=== PATIENT | female | born 1975 | race Caucasian/White ===

== ENCOUNTER 2016-11-27 10:04 | Emergency (ER) | payer OTHER ==
[~2016-11-27] VITALS: Ht 157.5 cm; Wt 52.3 kg
[2016-11-27 10:10] VITALS: TEMP 37; Ht 157.5 cm; Wt 52.3 kg
[2016-11-27 11:00] LABS: MEAN CELL VOLUME 88.2 fL (80-100); MEAN CORPUSCULAR HEMOGLOBIN 30.5 pg (25-34); MEAN CORPUSCULAR HGB CONC 34.5 g/dl (32-36); MEAN PLATELET VOLUME 9.1 fL (7.4-10.4); PLATELET COUNT 350 K/uL (130-400); RED BLOOD COUNT 4.76 M/uL (4.2-5.4); WHITE BLOOD COUNT 7.29 K/uL (4.8-10.8)
[2016-11-27 11:29] LABS: CREATININE 0.88 mg/dl (0.60-1.20)
[2016-11-27 11:30] LABS: BUN/CREATININE RATIO 16.7 (10-20); CALCIUM 9.1 mg/dl (8.5-10.1)
[2016-11-27 11:46] LABS: POTASSIUM 3.9 mmol/L (3.5-5.1)
--- NOTE | 2016-11-27 12:37 | DIAGNOSTIC IMAGING REPORT ---
ULTRASOUND OF THE PELVIS CLINICAL HISTORY: Vaginal bleeding. Positive test. COMPARISON STUDY: Pelvic CT dated 06/04/2013. TECHNIQUE: Real-time, grayscale, and color flow sonography of the pelvis is performed both transabdominally and endovaginally. Images are reviewed in the transverse and longitudinal planes. FINDINGS: Uterus: The uterus is normal in size and echotexture, measuring 6.4 x 3.8 x 5.3 cm. A coarse calcification is noted in the fundal region. Endometrium: The endometrium is normal in appearance, and the endometrial stripe is normal in thickness measuring up to 0.4 cm. Ovaries: The ovaries are normal in size and morphology. The right ovary measures 2.6 x 1.5 x 1.6 cm and the left ovary measures 4.4 x 1.7 x 2.0 cm. A complex cystic follicle is noted in the left ovary measures up to 2.4 cm. Normal Doppler waveforms are shown within both ovaries. Pelvis: There is trace free fluid in the cul-de-sac. No concerning adnexal lesion is seen. IMPRESSION: 1. No intrauterine gestation is identified. This could simply reflect an intrauterine gestation that is too small to visualize or a missed . Although there is no concerning adnexal lesion identified clearly, in the setting of a positive test without a confirmed intrauterine gestation ectopic would be impossible to exclude. Close clinical, laboratory, and sonographic follow-up is recommended. 2. A complex follicle in the left ovary likely representing a corpus luteum. 3. Trace free fluid is noted in the cul-de-sac. Electronically signed by: Christian Tarango M.D. 11/27/2016 12:35 PM Dictated Date/Time: 11/27/2016 12:31 PM
[2016-11-27 13:42] VITALS: BP 103/68; PULSE 60; O2SAT 96
--- NOTE | 2016-11-27 14:57 | EMERGENCY ROOM VISIT NOTE ---
History First contact with patient: 10:34 Chief Complaint: ED VAG BLEEDING Stated Complaint: POSSIBLE MISCARRIAGE - REF BY History of Present Illness The patient is a 41 year old female who presents to the Emergency Room with complaints of vaginal bleeding. The patient reports that her bleeding started yesterday afternoon. It initially was dark brown and rust colored. The patient reports that she did have one large clot that passed. This morning she reports that the blood was bright red. The patient has not blood enough to soak a pad's morning. She reports mild pelvic cramping, rating her discomfort a 2 out of 10. The patient reports that she did have a positive home test. The patient denies any prior history of pregnancies. She has not noticed any recent additional vaginal drainage or malodor. Review of Systems HEENT: Denies dizziness, visual problems, hearing loss, tinnitus. Denies difficulty swallowing or oral lesions. PULMONARY: Denies cough, shortness of breath, sputum production or hemoptysis. CARDIOVASCULAR: Denies chest pain, palpitations, dyspnea on exertion, orthopnea or peripheral edema. GASTROINTESTINAL: Denies diarrhea, constipation, nausea, vomiting, or abdominal pain. GENITOURINARY: Denies dysuria, frequency, urgency or nocturia. NEUROLOGIC: Denies history of epilepsy, CVA, TIA or chronic headaches. MUSCULOSKELETAL: Denies history of joint tenderness/swelling. SKIN: Denies rashes or lesions. PSYCHIATRIC: Denies history of depression or mental illness. ENDOCRINE: Denies history of diabetes or thyroid disorders. Past Medical/Surgical History Medical Problems: (1) Esophageal Reflux (2) Kidney stones (3) Lumbar Disc Displacement (4) Pulmonary embolism Surgical Problems: (1) Status post wrist surgery Family History No significant family history Social History Smoking Status: Never Smoker Alcohol Use: occasionally Drug Use: none Marital Status: Occupation Status: employed Current/Historical Medications No Active Prescriptions or Reported Meds Allergies Coded Allergies: Sulfamethoxazole w/Trimethoprim (Verified Allergy, Unknown, rash, 11/27/16) Physical Exam Vital Signs Date Time Temp Pulse Resp B/P Pulse Ox O2 Delivery O2 Flow Rate FiO2 11/27/16 13:42 60 15 103/68 96 Room Air 11/27/16 11:15 66 16 109/67 100 Room Air 11/27/16 10:10 37.0 70 16 119/76 99 Room Air Physical Exam CONSTITUTIONAL: Healthy and well nourished. Alert and oriented X 3 with positive affect. Patient does not appear in any acute distress. HEENT: Normocephalic, atraumatic. Pupils equal, round and reactive. NECK: Full active range of motion without discomfort. RESPIRATORY: Clear to auscultation bilaterally with no wheezing, crackles, rhonchi or stridor. CARDIOVASCULAR: Regular rate and rhythm with no murmurs, rubs or gallops. GASTROINTESTINAL: Bowel sounds present in all quadrants. No abdominal tenderness to palpation. Negative McBurney's point tenderness. No left lower quadrant tenderness to palpation. Negative CVA tenderness. GENITOURINARY: With a female nurse present, speculum exam was performed. Normal external genitalia. Examination of the vaginal stone does not show any bleeding lesions. The patient does have dark red blood in the vaginal vault. She has mild bleeding from the cervical os with no evidence for soft tissue entrapment or protrusion. MUSCULOSKELETAL: Full range of motion of all joints without discomfort. INTEGUMENTARY: No rash or other significant dermatologic conditions noted. HEMATOLOGIC: No ecchymosis or petechiae noted. NEUROLOGIC: No focal neurologic deficits noted. Medical Decision & Procedures ER Provider Diagnostic Interpretation: Pelvic ultrasound shows the following: ULTRASOUND OF THE PELVIS CLINICAL HISTORY: Vaginal bleeding. Positive test. COMPARISON STUDY: Pelvic CT dated 06/04/2013. TECHNIQUE: Real-time, grayscale, and color flow sonography of the pelvis is performed both transabdominally and endovaginally. Images are reviewed in the transverse and longitudinal planes. FINDINGS: Uterus: The uterus is normal in size and echotexture, measuring 6.4 x 3.8 x 5.3 cm. A coarse calcification is noted in the fundal region. Endometrium: The endometrium is normal in appearance, and the endometrial stripe is normal in thickness measuring up to 0.4 cm. Ovaries: The ovaries are normal in size and morphology. The right ovary measures 2.6 x 1.5 x 1.6 cm and the left ovary measures 4.4 x 1.7 x 2.0 cm. A complex cystic follicle is noted in the left ovary measures up to 2.4 cm. Normal Doppler waveforms are shown within both ovaries. Pelvis: There is trace free fluid in the cul-de-sac. No concerning adnexal lesion is seen. IMPRESSION: 1. No intrauterine gestation is identified. This could simply reflect an intrauterine gestation that is too small to visualize or a missed . Although there is no concerning adnexal lesion identified clearly, in the setting of a positive test without a confirmed intrauterine gestation ectopic would be impossible to exclude. Close clinical, laboratory, and sonographic follow-up is recommended. 2. A complex follicle in the left ovary likely representing a corpus luteum. 3. Trace free fluid is noted in the cul-de-sac. Laboratory Results 11/27/16 10:36 11/27/16 10:36 Test 11/27/16 10:26 11/27/16 10:36 Human Chorionic Gonadotropin, Quant 152 mIU/mL Red Blood Count 4.76 M/uL (4.2-5.4) Mean Corpuscular Volume 88.2 fL (80-100) Mean Corpuscular Hemoglobin 30.5 pg (25-34) Mean Corpuscular Hemoglobin Concent 34.5 g/dl (32-36) RDW Standard Deviation 40.7 fL (36.4-46.3) RDW Coefficient of Variation 12.7 % (11.5-14.5) Mean Platelet Volume 9.1 fL (7.4-10.4) Anion Gap 10.0 mmol/L (3-11) Est Creatinine Clear Calc Drug Dose 67.2 ml/min Estimated GFR () 95.3 Estimated GFR (Non- 82.2 BUN/Creatinine Ratio 16.7 (10-20) Calcium Level 9.1 mg/dl (8.5-10.1) The above labs were reviewed. Quantitative beta-hCG was 152. CBC and partial renal profile are otherwise normal. ED Course Patient history and physical exam were performed. Nurse's notes were reviewed. The patient does not appear in any acute distress. IV access was established , and labs were drawn. Quantitative beta hCG was 152. The patient was otherwise hemodynamically stable. Pelvic exam shows mild bleeding from the cervical os. Pelvic ultrasound does not show any obvious intrauterine gestation. The patient was advised of her laboratory and pelvic ultrasound results. I suspect this is a miscarriage. The patient was instructed to follow-up with OB/ AUTHORIZATION REPRESENTATIVE for further reevaluation. The patient reports that she tried to call a local office but they cannot get her in for another 2 weeks. She did try to schedule an appointment with an OPERATOR ASSISTANT [facility] CEMENT[facility] in [place], also without any luck. Our [facility] was able to contact Dr. Ngo's office, and was scheduled for an appointment next Wednesday at 12:30 PM. The patient was instructed to return to the emergency department in the interim for any significantly worsening bleeding, pain or developing fever. The patient was happy with plan care, and voiced understanding of all discharge instructions. Medical Decision Patient presents to the emergency with complaint of vaginal bleeding. She did have a positive home test. Her quantitative beta hCG today is 152. With the presence of vaginal bleeding, I do suspect this is a spontaneous . The patient is not actively merging on pelvic exam. She is also hemodynamically stable. I do feel that the patient is safe at this time for outpatient follow-up, and was instructed to return or any significantly worsening bleeding. Impression Primary Impression: Threatened in early Departure Information Prescriptions No Active Prescriptions or Reported Meds Referrals Ranulfo Downs D.O. (PCP) Patient Instructions My [facility]
== END 2016-11-27 14:08 | disposition home or self-care (01) ==
LOC: C.EDB 10:05
DX: O20.0 Threatened abortion (principal); Z3A.00 Weeks of gestation of pregnancy not specified

== ENCOUNTER 2017-01-26 23:44 | Emergency (ER) | payer OTHER ==
[~2017-01-26] VITALS: Ht 157.5 cm; Wt 53.3 kg
[2017-01-26 23:47] VITALS: TEMP 36.7; Ht 157.5 cm; Wt 53.3 kg
[2017-01-27] MEDS ORDERED: FAMOTIDINE 20 MG TAB PO ONE (00:30)
[2017-01-27] MEDS ORDERED: DEXAMETHASONE SOD INJ 10 MG/ML VIAL IM ONE (00:30)
[2017-01-27] MEDS ORDERED: PRED50TA PO (01:06)
[2017-01-27 01:12] VITALS: BP 112/58; PULSE 65; O2SAT 100
--- NOTE | 2017-01-27 02:27 | EMERGENCY ROOM VISIT NOTE ---
History Report prepared by Sparkle: Cait Bobby Under the Supervision of: Dr. Fabian Noguera D.O. First contact with patient: 23:56 Chief Complaint: ALLERGIC REACTION Stated Complaint: HIVES ALL OVER BODY SINCE 2PM History of Present Illness The patient is a 42 year old female who presents to the Emergency Room with complaints of a constant red, itchy rash starting this morning. She notes that last night she felt her face feel flushed and then awoke to an itching sensation behind her ear this morning. Around 10 hours ago she noticed her whole upper body and thighs broken out with the red, itchy rash. She took Benadryl five hours ago which improved her symptoms. She claims that they did start a new detergent recently and is currently wearing the bra and underwear that she washed it in. She denies any new travel, soaps, makeup, pets, medications, and visiting new homes. She states that this has happened before from eating shrimp, but not to this intensity. She states that she is no longer allergic to shrimp and has no known allergies. She claims that a coworker has a similar reaction around her mouth after eating the same meal of barbecue chicken. Patient denies any coughing or shortness of breath. She denies any trouble swallowing, trouble breathing, shortness of breath or chest pain. Source of History: patient Onset: this mornig Position: other (upper body and thighs) Quality: other (red itchy rash) Timing: constant Modifying Factors (Relieving): other (Benadryl) Associated Symptoms: No SOB, No cough Review of Systems See HPI for pertinent positives & negatives. A total of 10 systems reviewed and were otherwise negative. Past Medical & Surgical Medical Problems: (1) Esophageal Reflux (2) Kidney stones (3) Lumbar Disc Displacement (4) Pulmonary embolism Surgical Problems: (1) Status post wrist surgery Family History No significant family history Social History Smoking Status: Never Smoker Alcohol Use: occasionally Drug Use: none Marital Status: Occupation Status: employed Current/Historical Medications Scheduled Prednisone (Prednisone), 1 TAB PO DAILY Allergies Coded Allergies: Sulfa Antibiotics (Verified Allergy, Unknown, hives, 01/27/17) Sulfamethoxazole w/Trimethoprim (Verified Allergy, Unknown, rash, 01/27/17) Physical Exam Vital Signs Date Time Temp Pulse Resp B/P Pulse Ox O2 Delivery O2 Flow Rate FiO2 01/27/17 01:12 65 20 112/58 100 01/27/17 00:09 100 Room Air 01/26/17 23:47 36.7 64 20 117/77 100 Room Air Physical Exam GENERAL: alert, well appearing, well nourished, no distress, non-toxic EYE EXAM: normal conjunctiva. OROPHARYNX: no exudate, no erythema, lips, buccal mucosa, and tongue normal and mucous membranes are moist NECK: supple, no nuchal rigidity, no adenopathy, non-tender LUNGS: Clear to auscultation. Normal chest wall mechanics HEART: no murmurs, S1 normal and S2 normal ABDOMEN: abdomen soft, non-tender, normo-active bowel sounds, no masses, no rebound or guarding. SKIN: diffuse maculopapular rash with blanching to thighs, chest, and back, no palm or sole involvement, no bruising/petechiae UPPER EXTREMITIES: upper extremities are grossly normal. LOWER EXTREMITIES: No pitting edema. NEURO EXAM: Normal sensorium Medical Decision & Procedures Medications Administered Medications (Trade) Dose Ordered Sig/Wing Route Start Time Stop Time Status Last Admin Dose Admin Dexamethasone Sodium Phosphate (Decadron Inj) 10 mg NOW ONCE IM 01/27/17 00:30 01/27/17 00:31 DC 01/27/17 00:24 10 MG Famotidine (Pepcid Tab) 20 mg NOW ONCE PO 01/27/17 00:30 01/27/17 00:31 DC 01/27/17 00:23 20 MG ED Course ED COURSE: Vital signs were reviewed and appeared normal. The patients medical record was reviewed The above diagnostic studies were performed and reviewed. ED treatments and interventions as stated above. 2358: The patient was evaluated in room C10. A complete history and physical examination was performed. 0030: Ordered Decadron Inj 10 mg IM, Pepcid Tab 20 mg PO. 0102: Upon reevaluation, the patient is resting comfortably.I discussed my findings with the patient and she understands and agrees with the treatment plan. Based on the patients age, coexisting illnesses, exam and lab findings the decision to treat as an outpatient was made. The patient remained stable while under my care. The patient appeared well at the time of discharge. Medical Decision Differential diagnosis: Etiologies such as allergic reaction, anaphylaxis, urticaria, Sanchez-Ta syndrome, toxic epidermal necrolysis, erythema multiforme, cellulitis, as well as others were entertained. Patient is a 42-year-old female who presents the ER for urticaria. She notes that this started this morning and gradually progressed and worsened around 2 PM. The only inciting factor that she can think of is a new detergent possibly something she ate at lunch but she is unsure of. She has no chest pain, no shortness of breath, no trouble swallowing, no trouble breathing. Patient was otherwise well-appearing. Her exam was completely benign. She was given steroids along with famotidine and had almost complete resolution of her itching and the hives improved significantly. She had previously taking Benadryl. She was discharged following a short observation period and instructed to take Benadryl 50 mg every 6-8 hours combination with Claritin and possibly additional steroids if needed. Discussed with Pt concerning signs and symptoms to watch out for. Pt was instructed to follow up with their PCP and discussed with the patient their option to return to the ED at anytime for persistent or worsening symptoms. The appropriate anticipatory guidance and out- patient management, including indications for return to the emergency department , were explained at length to the patient and understood. Impression Primary Impression: Allergic reaction Scribe Attestation The scribe's documentation has been prepared under my direction and personally reviewed by me in its entirety. I confirm that the note above accurately reflects all work, treatment, procedures, and medical decision making performed by me. Departure Information Dispostion Home / Self-Care Prescriptions Prednisone (Prednisone) 50 Mg Tab 1 TAB PO DAILY for 3 Days, #3 TAB Prov: Fabian Noguera, 01/27/17 Referrals Ranulfo Downs D.O. (PCP) Forms HOME CARE DOCUMENTATION FORM, IMPORTANT VISIT INFORMATION Patient Instructions ED Allergic Reaction General Other, My [facility] Additional Instructions Please follow up with your primary care doctor with in the next 24 hours. Any worsening of your symptoms, please return to the ED immediately. This includes swelling of her throat, trouble swallowing, trouble breathing, burning in your eyes, or any other concerning signs or symptoms from your standpoint. Please take 50 mg of Benadryl as needed for itching/rash every 6-8 hours. You can also take Zyrtec or Claritin daily If rash does not improve tomorrow you may fill the prescription of prednisone Problem Qualifiers Primary Impression: Allergic reaction Encounter type: sequela Qualified Codes: T78.40XS - Allergy, unspecified, sequela
[2017-01-28] MEDS ORDERED: PRED20TA PO (04:10)
== END 2017-01-27 01:13 | disposition home or self-care (01) ==
LOC: C.EDB 23:45 → C.EDC 01-27 01:13
DX: T78.40XA Allergy, unspecified, initial encounter (principal); K21.9 Gastro-esophageal reflux disease without esophagitis; Z86.711 Personal history of pulmonary embolism

== ENCOUNTER 2017-01-28 01:45 | Emergency (ER) | payer OTHER ==
[~2017-01-28] VITALS: Ht 157.5 cm; Wt 52.2 kg
[~2017-01-28 01:45] MED LIST: PRED50TA PO
[2017-01-28 01:50] VITALS: TEMP 36.4; Ht 157.5 cm; Wt 52.2 kg
[2017-01-28] MEDS ORDERED: METHYLPREDNISOLONE 125 MG VIAL IV STA (02:08)
[2017-01-28] MEDS ORDERED: DiphenhydrAMINE HCL 50 MG/ML VIAL IV STA (02:08)
[2017-01-28] MEDS ORDERED: FAMOTIDINE 20MG/102 ML D5W IV STA (02:08)
[2017-01-28] MEDS ORDERED: SODIUM CHLORIDE 0.9% 1000ML 1,000 ML IV ONE (02:15)
[2017-01-28] MEDS ORDERED: PRED20TA PO (04:10)
[2017-01-28 04:20] VITALS: BP 92/58; PULSE 58; O2SAT 97
--- NOTE | 2017-01-28 06:48 | EMERGENCY ROOM VISIT NOTE ---
History First contact with patient: 01:57 Chief Complaint: SKIN PROBLEM Stated Complaint: HIVES ALL OVER BODY History of Present Illness The patient is a 42 year old female who presents to the Emergency Room with complaints of allergic reaction. The patient was seen and evaluated yesterday with similar complaints. She was given IM Decadron and a prescription of prednisone. The patient states that she fell while at her discharge yesterday, however about 4 hours ago she started having a recurrence of her symptoms. The patient did take her prednisone today, but it does not appear to be working. She did take Benadryl prior to arrival. She has pruritus over her body. No fever or chills. No sore throat. The patient is able to breathe without difficulty. No abdominal pain. She has not had anything new to eat or drink out of the ordinary. No known exposure to allergens. She rates her discomfort a 5/10. Review of Systems More than 10 systems were reviewed and otherwise negative with the exception of history of present illness. Past Medical/Surgical History Medical Problems: (1) Esophageal Reflux (2) Kidney stones (3) Lumbar Disc Displacement (4) Pulmonary embolism Surgical Problems: (1) Status post wrist surgery Family History No significant family history Social History Smoking Status: Never Smoker Alcohol Use: occasionally Drug Use: none Marital Status: Occupation Status: employed Current/Historical Medications Scheduled Prednisone (Prednisone), 1 TAB PO DAILY Prednisone (Prednisone), 0 PO DAILY Allergies Coded Allergies: No Known Allergies (Unverified , 01/28/17) Physical Exam Vital Signs Date Time Temp Pulse Resp B/P Pulse Ox O2 Delivery O2 Flow Rate FiO2 01/28/17 04:20 58 18 92/58 97 01/28/17 03:14 54 17 98/60 98 Room Air 01/28/17 01:50 36.4 70 20 121/78 99 Room Air Pain Rating (0-10): 0 Physical Exam VITALS: Vitals are noted on the nurse's note and reviewed by myself. Vital signs stable. GENERAL: Well-developed, well-nourished, white female, who is in no acute distress and resting comfortably. Patient is cooperative with the examination. HEAD: Normocephalic atraumatic. MOUTH: Mucous membranes moist. Tonsils are not enlarged. Pharynx without erythema, blood, or exudate. Uvula midline. Airway patent. NECK: Supple without nuchal rigidity. No lymphadenopathy. No thyromegaly. Cervical spine is nontender. HEART: Regular rate and rhythm without murmurs gallops or rubs. LUNGS: Clear to auscultation bilaterally without wheezes, rales or rhonchi. No retractions or accessory muscle use. ABDOMEN: Positive normal bowel sounds x 4. Soft, nontender, without masses or organomegaly. No guarding or rebound tenderness. SKIN: The skin was with diffuse urticarial wheals throughout Medical Decision & Procedures Medications Administered Medications (Trade) Dose Ordered Sig/Wing Route Start Time Stop Time Status Last Admin Dose Admin Diphenhydramine HCl (Benadryl Inj) 25 mg NOW STAT IV 01/28/17 02:08 01/28/17 02:09 DC 01/28/17 02:33 25 MG Methylprednisolone Sodium Succinate (Solu-Medrol IV) 125 mg NOW STAT IV 01/28/17 02:08 01/28/17 02:09 DC 01/28/17 02:35 125 MG Famotidine 20 mg 20 mg ONE STAT IV 01/28/17 02:08 01/28/17 02:09 DC 01/28/17 02:35 20 MG Sodium Chloride (Nss 1000ml) 1,000 ml @ 999 mls/hr Q1H1M ONCE IV 01/28/17 02:15 01/28/17 03:15 DC 01/28/17 02:33 999 MLS/HR ED Course Physical exam and history were performed. Nursing notes and EMR were reviewed. Patient appears to have a diffuse allergic reaction to an unknown allergen. Her airway is patent and she does not have abdominal discomfort. IV access was established and she was medicated as above. She does not appear to need epi. The patient was monitored for several hours, and after multiple rechecks she had complete resolution of her symptoms. I suspect that she had a recurrence of her allergic reaction. I'm unsure of the cause of this reaction. I will give the patient a higher dose of prednisone with a longer taper. She may use [id number] Benadryl and Zantac. The patient may need to follow with an elementary summer school teacher if symptoms persist. She was otherwise doing invited back to the ER with any new, worsening, or concerning symptoms. The chart was completed utilizing [employer] Voice Recognition Software. Grammatical errors, random word insertions, pronoun errors, and incomplete sentences are an occasional consequence of this system due to software limitations, ambient noise, and hardware issues. Any formal questions or concerns about the content, text, or information contained within the body of this dictation should be directly addressed to the provider for clarification. . Medical Decision Differential diagnosis: Etiologies such as allergic reaction, anaphylaxis, urticaria, Sanchez-Ta syndrome, toxic epidermal necrolysis, erythema multiforme, cellulitis, as well as others were entertained. Impression Primary Impression: Allergic reaction Departure Information Dispostion Home / Self-Care Condition GOOD Prescriptions Prednisone (Prednisone) 20 Mg Tab 0 PO DAILY, #18 TAB 3 DAILY FOR 3 DAYS, THEN 2 DAILY FOR 3 DAYS, THEN 1 DAILY FOR 3 DAYS. Prov: Jose G Woods PA-C 01/28/17 Forms HOME CARE DOCUMENTATION FORM, Work Instructions, Additional Instructions: Patient was seen and evaluated today in the emergency department fo medical care. Return to work on 01/31/2017. Please excuse IMPORTANT VISIT INFORMATION Patient Instructions My [facility] Additional Instructions You were seen and evaluated today on an emergency basis only. This is not a substitute for, or an effort to provide, complete comprehensive medical care. It is not possible to recognize and treat all injuries or illnesses in a single emergency department visit. For this reason it is recommended that you followup with your primary care physician next week with any ongoing or persistent symptoms. You may need to follow with an engine specialist if this continues. Take prednisone as prescribed. Continue [id number] Benadryl and Zantac as directed You are welcome to return to the emergency department anytime with new, worsening, or concerning symptoms. Work Instructions Additional Work Instructions: Patient was seen and evaluated today in the emergency department for medical care. Return to work on 01/31/2017. Please excuse
== END 2017-01-28 04:23 | disposition home or self-care (01) ==
LOC: C.EDB 01:46 → C.EDA 04:23
DX: T78.40XA Allergy, unspecified, initial encounter (principal); K21.9 Gastro-esophageal reflux disease without esophagitis; Z86.711 Personal history of pulmonary embolism

== ENCOUNTER 2017-07-12 10:41 | Emergency (ER) | payer OTHER ==
[~2017-07-12] VITALS: Ht 157.5 cm; Wt 50.8 kg
[~2017-07-12 10:41] MED LIST changes: +PRED20TA PO; -PRED50TA PO
[2017-07-12 10:47] VITALS: TEMP 36.7; Ht 157.5 cm; Wt 50.8 kg
[2017-07-12] MEDS ORDERED: SODIUM CHLORIDE 0.9% 1000ML 1,000 ML IV STA ×2 (11:16→12:42)
[2017-07-12] MEDS ORDERED: GI COCKTAIL PO STA (11:16)
[2017-07-12] MEDS ORDERED: ONDANSETRON INJ 2 MG/ML 2 ML VIAL IV STA (11:16)
[2017-07-12] MEDS ORDERED: ALUMINUM/MAGNESIUM SUSP 30 ML UDC ONE (11:21)
[2017-07-12] MEDS ORDERED: LIDOCAINE HCL 2% VISC SOLN 20 ML UDC ONE (11:21)
[2017-07-12] MEDS ORDERED: DICYCLOMINE HCL 10 MG/ML 2 ML AMP IM ONE (11:30)
[2017-07-12 12:09] LABS: BASO % 0.4 %; BASO ABS # 0.05 K/uL (0-0.2); COMPLETE YES; EOS % 5.9 %; HEMATOCRIT 48.3 % (37-47); IG% 0.2 %; LYMPH % 11.1 %; MEAN CELL VOLUME 87.5 fL (80-100); MEAN CORPUSCULAR HEMOGLOBIN 28.6 pg (25-34); MEAN CORPUSCULAR HGB CONC 32.7 g/dl (32-36); MEAN PLATELET VOLUME 8.9 fL (7.4-10.4); MONO % 6.7 %; NEUT % 75.7 %; PLATELET COUNT 484 K/uL (130-400); RED BLOOD COUNT 5.52 M/uL (4.2-5.4); WHITE BLOOD COUNT 11.75 K/uL (4.8-10.8)
[2017-07-12 12:24] LABS: URINE APPEARANCE CLEAR (CLEAR); URINE BILIRUBIN NEG (NEG); URINE COLOR YELLOW; URINE EPITHELIAL CELL AUTO 20-30 /lpf (0-5); URINE NITRITE NEG (NEG); UROBILINOGEN NEG (NEG)
[2017-07-12 12:26] LABS: MANUAL MICROSCOPIC REQUIRED? NO; REVIEW REQ? YES
[2017-07-12 12:35] LABS: ALKALINE PHOSPHATASE 64 U/L (45-117); ALT/SGPT 21 U/L (12-78); BLOOD UREA NITROGEN 10 mg/dl (7-18); BUN/CREATININE RATIO 10.4 (10-20); CALCIUM 9.5 mg/dl (8.5-10.1); CARBON DIOXIDE 26 mmol/L (21-32); CHLORIDE 104 mmol/L (98-107); CREATININE 0.93 mg/dl (0.60-1.20); GLUCOSE 69 mg/dl (70-99); SODIUM 138 mmol/L (136-145)
[2017-07-12 12:38] LABS: URINE MUCUS PRESENT (NONE PRSENT)
[2017-07-12 12:39] LABS: ZZUR CULT IF INDIC CLEAN CATCH YES
[2017-07-12] MEDS ORDERED: CIPROFLOXACIN 500 MG TAB PO STA (12:42)
[2017-07-12] MEDS ORDERED: AZITHROMYCIN 250 MG TAB PO ONE (13:00)
[2017-07-12 13:07] LABS: POTASSIUM 3.5 mmol/L (3.5-5.1)
[2017-07-12] MEDS ORDERED: AZIT250T PO (13:50)
[2017-07-12] MEDS ORDERED: IMD/2 PO (13:50)
[2017-07-12] MEDS ORDERED: ONDA4TAB10 SL (13:50)
--- NOTE | 2017-07-12 13:50 | EMERGENCY ROOM VISIT NOTE ---
History Report prepared by [place]: Hu Taylor Under the Supervision of: Dr. Timmy Epps M.D. First contact with patient: 10:56 Chief Complaint: DIARRHEA Stated Complaint: DIARRHEA PAST 7 DAYS- BLOOD IN STOOL,UPSET STOMACH History of Present Illness The patient is a 42 year old white female who presents to the ED with a cc of intermittent episodes of diarrhea beginning a week ago. Initially twice a day, but has worsened and now occurs about 20 minutes after eating. Noticed red coloration in her stool and on the toilet bowl. Positive headache. Negative abdominal pain, urinary symptoms, or nausea. Symptoms improved with ibuprofen. Feels that she is likely dehydrated. Had some back pain yesterday. Family history of colon cancer. Has never had a colonoscopy. Not currently on blood thinners, but notes that she was on blood thinners four years ago for PE s/p surgery. No recent travel. No recent antibiotic use. No known sick contacts. LNMP was one week ago. Hx of miscarriage about eight months ago. Source of History: patient Onset: A week ago Quality: other (diarrhea) Timing: intermittent, other (episodes) Modifying Factors (Relieving): ibuprofen Associated Symptoms: + headache, + back pain (resolved), + hematochezia, No nausea, No abdominal pain Review of Systems See HPI for pertinent positives and negatives. A total of ten systems were reviewed and were otherwise negative. Past Medical & Surgical Medical Problems: (1) Esophageal Reflux (2) Kidney stones (3) Lumbar Disc Displacement (4) Pulmonary embolism Surgical Problems: (1) Status post wrist surgery Family History No significant family history Social History Smoking Status: Never Smoker Alcohol Use: occasionally Drug Use: none Marital Status: Occupation Status: employed Current/Historical Medications Scheduled Azithromycin (Zithromax), 500 MG PO DAILY Loperamide Hcl (Imodium), 2 MG PO QD Ondasetron Odt (Zofran Odt), 4 MG SL Q6H Allergies Coded Allergies: Sulfa Antibiotics (Unverified Allergy, Unknown, HIVES, 07/12/17) Physical Exam Vital Signs Date Time Temp Pulse Resp B/P (MAP) Pulse Ox O2 Delivery O2 Flow Rate FiO2 07/12/17 15:03 72 18 98/64 97 07/12/17 14:45 72 18 98/64 97 Room Air 07/12/17 12:42 66 18 106/63 100 Room Air 07/12/17 10:47 36.7 75 17 118/79 98 Room Air Physical Exam GENERAL: Awake, alert, well-appearing, NAD HENT: Normocephalic, atraumatic. EYES: Normal conjunctiva. Sclera non-icteric. NECK: Supple. No nuchal rigidity. FROM. RESPIRATORY: CTAB, no rhonchi, wheezing, crackles CARDIAC: RRR, no MRG ABDOMEN: Soft, NTND, BS+. Negative obturators, psoas and Carrera's sign. BACK: Very mild left flank pain. MSK: No chest wall TTP, no LE edema NEURO: GCS 15, CN 2-12 intact, moves all 4s on command SKIN: No rash or jaundice noted. Medical Decision & Procedures Laboratory Results 07/12/17 11:40 Red Blood Count 5.52, Mean Corpuscular Volume 87.5, Mean Corpuscular Hemoglobin 28.6, Mean Corpuscular Hemoglobin Concent 32.7, Mean Platelet Volume 8.9, Neutrophils (%) (Auto) 75.7, Lymphocytes (%) (Auto) 11.1, Monocytes (%) (Auto) 6.7, Eosinophils (%) (Auto) 5.9, Basophils (%) (Auto) 0.4, Neutrophils # (Auto) 8.90, Lymphocytes # (Auto) 1.30, Monocytes # (Auto) 0.79, Eosinophils # (Auto) 0.69, Basophils # (Auto) 0.05 07/12/17 11:40 07/12/17 12:43 Test 07/12/17 11:40 07/12/17 11:45 07/12/17 12:43 White Blood Count 11.75 K/uL (4.8-10.8) Red Blood Count 5.52 M/uL (4.2-5.4) Hemoglobin 15.8 g/dL (12.0-16.0) Hematocrit 48.3 % (37-47) Mean Corpuscular Volume 87.5 fL (80-100) Mean Corpuscular Hemoglobin 28.6 pg (25-34) Mean Corpuscular Hemoglobin Concent 32.7 g/dl (32-36) Platelet Count 484 K/uL (130-400) Mean Platelet Volume 8.9 fL (7.4-10.4) Neutrophils (%) (Auto) 75.7 % Lymphocytes (%) (Auto) 11.1 % Monocytes (%) (Auto) 6.7 % Eosinophils (%) (Auto) 5.9 % Basophils (%) (Auto) 0.4 % Neutrophils # (Auto) 8.90 K/uL (1.4-6.5) Lymphocytes # (Auto) 1.30 K/uL (1.2-3.4) Monocytes # (Auto) 0.79 K/uL (0.11-0.59) Eosinophils # (Auto) 0.69 K/uL (0-0.5) Basophils # (Auto) 0.05 K/uL (0-0.2) RDW Standard Deviation 39.6 fL (36.4-46.3) RDW Coefficient of Variation 12.2 % (11.5-14.5) Immature Granulocyte % (Auto) 0.2 % Immature Granulocyte # (Auto) 0.02 K/uL (0.00-0.02) Anion Gap 8.0 mmol/L (3-11) Est Creatinine Clear Calc Drug Dose 63.0 ml/min Estimated GFR () 88.5 Estimated GFR (Non- 76.3 BUN/Creatinine Ratio 10.4 (10-20) Calcium Level 9.5 mg/dl (8.5-10.1) Total Bilirubin 0.8 mg/dl (0.2-1) Alanine Aminotransferase (ALT/SGPT) 21 U/L (12-78) Alkaline Phosphatase 64 U/L (45-117) Total Protein 8.1 gm/dl (6.4-8.2) Albumin 4.3 gm/dl (3.4-5.0) Lipase 154 U/L (73-393) Urine Color YELLOW Urine Appearance CLEAR (CLEAR) Urine pH 5.0 (4.5-7.5) Urine Specific Etta 1.020 (1.000-1.030) Urine Protein NEG (NEG) Urine Glucose (UA) NEG (NEG) Urine Ketones 3+ (NEG) Urine Occult Blood 2+ (NEG) Urine Nitrite NEG (NEG) Urine Bilirubin NEG (NEG) Urine Urobilinogen NEG (NEG) Urine Leukocyte Esterase NEG (NEG) Urine WBC (Auto) 1-5 /hpf (0-5) Urine RBC (Auto) 0-4 /hpf (0-4) Urine Hyaline Casts (Auto) 1-5 /lpf (0-5) Urine Epithelial Cells (Auto) 20-30 /lpf (0-5) Urine Bacteria (Auto) 1+ (NEG) Urine Mucus PRESENT (NONE PRSENT) Urine Test NEG (NEG) Direct Bilirubin 0.1 mg/dl (0-0.2) Aspartate Amino Transf (AST/SGOT) 15 U/L (15-37) Laboratory results reviewed by me Medications Administered Medications (Trade) Dose Ordered Sig/Wing Route Start Time Stop Time Status Last Admin Dose Admin Sodium Chloride 1,000 ml @ 999 mls/hr Q1H1M STAT IV 07/12/17 11:16 07/12/17 12:16 DC 07/12/17 11:46 999 MLS/HR Ondansetron HCl (Zofran Inj) 4 mg NOW STAT IV 07/12/17 11:16 07/12/17 11:18 DC 07/12/17 11:46 4 MG Dicyclomine HCl (Bentyl Inj) 20 mg NOW ONCE IM 07/12/17 11:30 07/12/17 11:31 DC 07/12/17 11:47 20 MG Lidocaine HCl (Viscous Lidocaine 2% Soln) 20 ml STK-MED ONCE .ROUTE 07/12/17 11:21 07/12/17 11:22 DC 07/12/17 11:47 20 ML Al Hydroxide/Mg Hydroxide (Maalox Susp) 30 ml STK-MED ONCE .ROUTE 07/12/17 11:21 07/12/17 11:22 DC 07/12/17 11:48 30 ML Sodium Chloride 1,000 ml @ 999 mls/hr Q1H1M STAT IV 07/12/17 12:42 07/12/17 13:42 DC 07/12/17 12:46 999 MLS/HR Azithromycin (Zithromax Tab) 500 mg NOW ONCE PO 07/12/17 13:00 07/12/17 13:01 DC 07/12/17 13:19 500 MG Ondansetron HCl (ZOFRAN ODT 4MG Home Pack) 1 homepack UD ONCE PO 07/12/17 14:00 07/12/17 14:01 DC 07/12/17 14:14 1 HOMEPACK ED Course 1104: The patient was evaluated in room C6. A complete history and physical exam was performed. 1116: Ordered GI Cocktail 24 mL PO, Zofran Inj 4 mg IV, Sodium Chloride 1000 ml @ 999 mls/hr IV. 1130: Ordered Bentyl Inj 20 mg IM. 1237: I reassessed the patient. She is resting comfortably. 1242: Ordered Cipro Tab 500 mg PO, Sodium Chloride 1000 ml @ 999 mls/hr IV. 1300: Ordered Zithromax Tab 500 mg PO. 1335: I reevaluated the patient. She is eating a banana, and drinking luzmaria- cara. She has not been able to provide a stool sample. Discussed results and discharge instructions: she verbalized understanding and agreement. The patient is ready for discharge. Medical Decision The patient is a 42 year old white female who presents to the ED with a cc of intermittent episodes of diarrhea beginning a week ago. Differential diagnosis: Etiologies such as appendicitis, diverticulitis, PUD, biliary pathology, UTI, pancreatitis, obstruction, mesenteric ischemia, aortic pathology, infections, inflammatory bowel disease, renal colic, as well as others were entertained. Patient was seen and evaluated at the bedside. Patient do not have very much abdominal pain. Patient did complain of some mildly bloody diarrhea. Patient denied any sick contacts recent travel or food ingestions. Patient also do not take any blood thinning medications and had no recent trauma. Patient was afebrile and had fairly normal vital signs. Patient's lab work was fairly unremarkable. Patient's white count was 11 patient had normal hemoglobin and platelet counts. Patient had a UA that was negative for infection. Patient was given some symptomatic treatment as well as IV fluids. Patient improved thereafter. Patient has not have any diarrhea here and thus no stool samples were sent. Given the patient's mildly prolonged prolonged symptoms as well as bloody diarrhea with fairly normal vital signs and on elevated white blood cell count patient was given by mouth antibiotics. Patient did state that she had tendinopathy sec secondary to fluoroquinolones this 500 of Zithromax was given. Patient tolerated by mouth was actively eating and drinking at the bedside. Patient was told to slowly advance her diet. Patient was told that if she had any worsening of symptoms over the next 24-48 hours persistent fever nausea or vomiting or profuse diarrhea she should return to the emergency department. Patient was told she may try one to 2 doses of Imodium over the next 2 days to see if that improves her symptoms however she was cautioned that sometimes this can cause worsening diarrhea. Patient was given strict follow-up, discharge, and return precautions. Patient agreed with plan for care. Patient was safely discharged home. Medication Reconcilliation Current Medication List: was personally reviewed by me Blood Pressure Screening Patient's blood pressure: Normal blood pressure Blood pressure disposition: Did not require urgent referral Impression Primary Impression: Diarrhea Additional Impression: Abdominal pain Scribe Attestation The scribe's documentation has been prepared under my direction and personally reviewed by me in its entirety. I confirm that the note above accurately reflects all work, treatment, procedures, and medical decision making performed by me. Departure Information Dispostion Home / Self-Care Prescriptions Loperamide Hcl (Imodium) 2 Mg Cap 2 MG PO QD for 2 Days, #2 CAP Prov: Timmy Epps M.D. 07/12/17 Ondasetron Odt (ZOFRAN ODT) 4 Mg Tab 4 MG SL Q6H for Nausea, #6 TAB Prov: Timmy Epps M.D. 07/12/17 Azithromycin (Zithromax) 250 Mg Tab 500 MG PO DAILY for 3 Days, #6 TAB Prov: Timmy Epps M.D. 07/12/17 Referrals No Doctor, Assigned (PCP) Patient Instructions My [facility] Additional Instructions Please return to the emergency department if you have worsening or recurrent symptoms not amenable to at-home treatment. Please call for a follow-up appointment with her primary care physician. Please take your medications as prescribed. If you have other concerns and/or complaints please feel free to also call your primary care physician's office or return the ED for further evaluation, management, and treatment. You have been examined and treated today on an emergency basis only. This is not a substitute for, or an effort to provide, complete comprehensive medical care. It is impossible to recognize and treat all injuries or illnesses in a single emergency department visit. It is therefore important that you follow up closely with [facility]. Call as soon as possible for an appointment. Thank you for your time and consideration. I look forward to speaking with you again soon. Please don't hesitate to call us if you have any questions. Work Instructions Return To Work: 1 day Specific Date: 07/14/17 Problem Qualifiers Primary Impression: Diarrhea Diarrhea type: presumed infectious Qualified Codes: A09 - Infectious gastroenteritis and colitis, unspecified Additional Impression: Abdominal pain Abdominal location: lower abdomen, unspecified Qualified Codes: R10.30 - Lower abdominal pain, unspecified
[2017-07-12] MEDS ORDERED: ONDANSETRON HOME PACK 4MG OD TAB PO ONE (14:00)
[2017-07-12 15:03] VITALS: BP 98/64; PULSE 72; O2SAT 97
== END 2017-07-12 15:04 | disposition home or self-care (01) ==
LOC: C.EDB 10:43 → C.EDC 15:04
DX: A09 Infectious gastroenteritis and colitis, unspecified (principal); R10.30 Lower abdominal pain, unspecified; K21.9 Gastro-esophageal reflux disease without esophagitis; I26.99 Other pulmonary embolism without acute cor pulmonale

== ENCOUNTER 2017-07-14 21:36 | Emergency (ER) | payer OTHER ==
[~2017-07-14] VITALS: Ht 157.5 cm; Wt 51.8 kg
[~2017-07-14 21:36] MED LIST changes: +AZIT250T PO; +IMD/2 PO; +ONDA4TAB10 SL; -PRED20TA PO
[2017-07-14] MEDS ORDERED: RANITIDINE HCL 50 MG/100 ML D5W IV STA (22:03)
[2017-07-14] MEDS ORDERED: SODIUM CHLORIDE 0.9% 1000ML 1,000 ML IV STA (22:03)
[2017-07-14] MEDS ORDERED: DICYCLOMINE HCL 10 MG/ML 2 ML AMP IM ONE (22:15)
[2017-07-14] MEDS ORDERED: DEXAMETHASONE SOD INJ 10 MG/ML VIAL IV ONE (22:15)
[2017-07-14 22:36] VITALS: Ht 157.5 cm; Wt 51.8 kg
--- NOTE | 2017-07-14 22:40 | EMERGENCY ROOM VISIT NOTE ---
ED Visit Note First contact with patient: 21:49 Patient seen by me with the advanced substance abuse clinician, agree with her evaluation we will check labs rule out colitis and any other infectious etiology of her current presentation. Problem List Medical Problems: (1) Kidney stones Status: Chronic Current/Historical Medications Scheduled Azithromycin (Zithromax), 500 MG PO DAILY Loperamide Hcl (Imodium), 2 MG PO QD Ondasetron Odt (Zofran Odt), 4 MG SL Q6H Allergies Coded Allergies: Sulfa Antibiotics (Unverified Allergy, Unknown, HIVES, 07/14/17) Vital Signs Date Time Temp Pulse Resp B/P (MAP) Pulse Ox O2 Delivery O2 Flow Rate FiO2 07/14/17 21:39 36.6 84 18 130/86 97 Room Air Laboratory Results Test 07/14/17 22:03 Departure Information Referrals Ranulfo Downs D.OGregg (PCP) Patient Instructions My [facility]
[2017-07-14 22:49] LABS: URINE APPEARANCE CLOUDY (CLEAR); URINE BILIRUBIN NEG (NEG); URINE COLOR YELLOW; URINE EPITHELIAL CELL AUTO >30 /lpf (0-5); URINE NITRITE NEG (NEG); URINE PH 5.5 (4.5-7.5); URINE SPECIFIC GRAVITY 1.015 (1.000-1.030); UROBILINOGEN NEG (NEG); ZZUR CULT IF INDIC CLEAN CATCH NO
[2017-07-14 22:55] LABS: BASO % 0.4 %; BASO ABS # 0.05 K/uL (0-0.2); COMPLETE YES; EOS % 7.9 %; HEMATOCRIT 40.5 % (37-47); IG% 0.2 %; LYMPH % 18.9 %; LYMPH ABS # 2.17 K/uL (1.2-3.4); MEAN CELL VOLUME 86.4 fL (80-100); MEAN CORPUSCULAR HEMOGLOBIN 29.2 pg (25-34); MEAN CORPUSCULAR HGB CONC 33.8 g/dl (32-36); MEAN PLATELET VOLUME 8.5 fL (7.4-10.4); MONO % 9.1 %; NEUT % 63.5 %; PLATELET COUNT 419 K/uL (130-400); RED BLOOD COUNT 4.69 M/uL (4.2-5.4); WHITE BLOOD COUNT 11.46 K/uL (4.8-10.8)
[2017-07-14 23:04] LABS: MANUAL MICROSCOPIC REQUIRED? NO; REVIEW REQ? NO
[2017-07-14 23:19] LABS: ALT/SGPT 20 U/L (12-78); BLOOD UREA NITROGEN 7 mg/dl (7-18); BUN/CREATININE RATIO 7.7 (10-20); C-REACTIVE PROTEIN 1.25 mg/dl (0-0.29); CALCIUM 8.5 mg/dl (8.5-10.1); CARBON DIOXIDE 27 mmol/L (21-32); CHLORIDE 104 mmol/L (98-107); CREATININE 0.87 mg/dl (0.60-1.20); GLUCOSE 75 mg/dl (70-99); MAGNESIUM 2.2 mg/dl (1.8-2.4); POTASSIUM 3.2 mmol/L (3.5-5.1); PREG INTERNAL NEGATIVE QC NEG CLEAR BACKGROUND; PREG INTERNAL POSITIVE QC POS CONTROL LINE; SODIUM 138 mmol/L (136-145)
[2017-07-14 23:28] LABS: ALKALINE PHOSPHATASE 50 U/L (45-117); AST/SGOT 21 U/L (15-37)
[2017-07-14 23:48] LABS: LYME DISEASE AB IGG NEG (NEG); LYME DISEASE AB IGM NEG (NEG)
[2017-07-15 00:40] VITALS: BP 101/66; PULSE 74; TEMP 36.6; O2SAT 99
--- NOTE | 2017-07-15 06:27 | DIAGNOSTIC IMAGING REPORT ---
VENOUS DOPPLER LW EXT BILAT HISTORY: Pain. Edema. leg pain/swelling COMPARISON STUDY: None. FINDINGS: There is normal compressibility, flow, and augmentation within the bilateral lower extremity deep venous systems. IMPRESSION: No DVT within the right or left lower extremity. The above report was generated using voice recognition software. It may contain grammatical, syntax or spelling errors. Electronically signed by: Antoine Menjivar M.D. 07/15/2017 6:26 AM Dictated Date/Time: 07/15/2017 6:26 AM
--- NOTE | 2017-07-15 22:25 | EMERGENCY ROOM VISIT NOTE ---
History First contact with patient: 21:49 Chief Complaint: SWELLING TO EXTREMITY Stated Complaint: BACTERIAL INFECTION IN INTESTINES,B/L LE SWELLING History of Present Illness The patient is a 42 year old female who presents to the Emergency Room with complaints of ongoing diarrhea for the past 8 days with stool cultures done yesterday by the family care DrGregg who now complains of leg pain and rash to the lower extremities. Patient states the diarrhea has a red tinge to it. No clots of blood. No black stool. No recent antibiotics. No well water. Patient was a fatigue. Patient denies chest pain, dyspnea, fever, chills, cough , congestion, joint swellings, bleeding disorders. Patient had a PE in the past from surgery. She is not on anti-platelet medication. She was started on Zithromax yesterday. Review of Systems See HPI for pertinent positives & negatives. A total of 10 systems reviewed and were otherwise negative. Past Medical/Surgical History Medical Problems: (1) Esophageal Reflux (2) Kidney stones (3) Lumbar Disc Displacement (4) Pulmonary embolism Surgical Problems: (1) Status post wrist surgery Family History No significant family history Social History Smoking Status: Never Smoker Alcohol Use: occasionally Drug Use: none Marital Status: Housing Status: lives with family Occupation Status: employed Current/Historical Medications Scheduled Azithromycin (Zithromax), 500 MG PO DAILY Ondasetron Odt (Zofran Odt), 4 MG SL Q6H Allergies Coded Allergies: Sulfa Antibiotics (Unverified Allergy, Unknown, HIVES, 07/15/17) Physical Exam Vital Signs Date Time Temp Pulse Resp B/P (MAP) Pulse Ox O2 Delivery O2 Flow Rate FiO2 07/15/17 00:40 36.6 74 18 101/66 99 07/14/17 23:36 71 18 103/61 98 Room Air 07/14/17 21:39 36.6 84 18 130/86 97 Room Air Pain Rating (0-10): 0 Physical Exam VITALS: Vitals are noted on the nurse's note and reviewed by myself. Vital signs stable. GENERAL: Pleasant anxious-appearing female, in no acute distress, nondiaphoretic , well-developed well-nourished. SKIN: Bilateral lower legs with red macules 1 mm non-blanchable nonraised to the lower extremities most consistent with folliculitis from shaving The rest of the skin was without rashes, erythema, edema, or bruising. There is no tenting of the skin. Capillary reflex less than 2 seconds. HEAD: Normocephalic atraumatic. EARS: External auditory canals clear, tympanic membranes pearly malik without erythema or effusion bilaterally. EYES: Pupils equal round and reactive to light and accommodation. Conjunctivae without injection, sclerae without icterus. Extraocular movements intact. NOSE: Patent, turbinates without inflammation or discharge. No sinus tenderness. MOUTH: Mucous membranes moist. No bleeding gums Pharynx without erythema or exudate. Uvula midline. Airway patent. Tongue does not deviate. NECK: Supple without nuchal rigidity. No lymphadenopathy. No thyromegaly. Cervical spine is nontender. No JVD. HEART: Regular rate and rhythm without murmurs gallops or rubs. LUNGS: Clear to auscultation bilaterally without wheezes, rales or rhonchi. No dullness to percussion. No retractions or accessory muscle use. ABDOMEN: Positive bowel sounds x 4. Normal tympanic percussion. Soft, nontender, without masses or organomegaly. Carrera sign negative. No guarding or rebound tenderness. MUSCULOSKELETAL: No muscle atrophy, erythema, or edema noted. Left lateral calf and right lateral calf with small nodule present that is slightly tender to palpation without signs of erythema nodosum at this time NEURO: Patient was alert and oriented to person place and time. Normal sensation to light and sharp touch. No focal neurological deficits. Medical Decision & Procedures Laboratory Results 07/14/17 22:31 Red Blood Count 4.69, Mean Corpuscular Volume 86.4, Mean Corpuscular Hemoglobin 29.2, Mean Corpuscular Hemoglobin Concent 33.8, Mean Platelet Volume 8.5, Neutrophils (%) (Auto) 63.5, Lymphocytes (%) (Auto) 18.9, Monocytes (%) (Auto) 9.1, Eosinophils (%) (Auto) 7.9, Basophils (%) (Auto) 0.4, Neutrophils # (Auto) 7.28, Lymphocytes # (Auto) 2.17, Monocytes # (Auto) 1.04, Eosinophils # (Auto) 0.90, Basophils # (Auto) 0.05 07/14/17 22:31 Test 07/14/17 00:00 07/14/17 22:31 Urine Color YELLOW Urine Appearance CLOUDY (CLEAR) Urine pH 5.5 (4.5-7.5) Urine Specific Flynn 1.015 (1.000-1.030) Urine Protein NEG (NEG) Urine Glucose (UA) NEG (NEG) Urine Ketones 2+ (NEG) Urine Occult Blood 2+ (NEG) Urine Nitrite NEG (NEG) Urine Bilirubin NEG (NEG) Urine Urobilinogen NEG (NEG) Urine Leukocyte Esterase TRACE (NEG) Urine WBC (Auto) 5-10 /hpf (0-5) Urine RBC (Auto) 5-10 /hpf (0-4) Urine Hyaline Casts (Auto) 1-5 /lpf (0-5) Urine Epithelial Cells (Auto) >30 /lpf (0-5) Urine Bacteria (Auto) NEG (NEG) White Blood Count 11.46 K/uL (4.8-10.8) Red Blood Count 4.69 M/uL (4.2-5.4) Hemoglobin 13.7 g/dL (12.0-16.0) Hematocrit 40.5 % (37-47) Mean Corpuscular Volume 86.4 fL (80-100) Mean Corpuscular Hemoglobin 29.2 pg (25-34) Mean Corpuscular Hemoglobin Concent 33.8 g/dl (32-36) Platelet Count 419 K/uL (130-400) Mean Platelet Volume 8.5 fL (7.4-10.4) Neutrophils (%) (Auto) 63.5 % Lymphocytes (%) (Auto) 18.9 % Monocytes (%) (Auto) 9.1 % Eosinophils (%) (Auto) 7.9 % Basophils (%) (Auto) 0.4 % Neutrophils # (Auto) 7.28 K/uL (1.4-6.5) Lymphocytes # (Auto) 2.17 K/uL (1.2-3.4) Monocytes # (Auto) 1.04 K/uL (0.11-0.59) Eosinophils # (Auto) 0.90 K/uL (0-0.5) Basophils # (Auto) 0.05 K/uL (0-0.2) RDW Standard Deviation 39.2 fL (36.4-46.3) RDW Coefficient of Variation 12.3 % (11.5-14.5) Immature Granulocyte % (Auto) 0.2 % Immature Granulocyte # (Auto) 0.02 K/uL (0.00-0.02) Erythrocyte Sedimentation Rate 9 mm/hr (0-21) Anion Gap 7.0 mmol/L (3-11) Est Creatinine Clear Calc Drug Dose 67.3 ml/min Estimated GFR () 95.9 Estimated GFR (Non- 82.7 BUN/Creatinine Ratio 7.7 (10-20) Calcium Level 8.5 mg/dl (8.5-10.1) Magnesium Level 2.2 mg/dl (1.8-2.4) Total Bilirubin 0.3 mg/dl (0.2-1) Direct Bilirubin < 0.1 mg/dl (0-0.2) Aspartate Amino Transf (AST/SGOT) 21 U/L (15-37) Alanine Aminotransferase (ALT/SGPT) 20 U/L (12-78) Alkaline Phosphatase 50 U/L (45-117) Total Creatine Kinase 269 U/L (26-192) C-Reactive Protein 1.25 mg/dl (0-0.29) Total Protein 6.9 gm/dl (6.4-8.2) Albumin 3.5 gm/dl (3.4-5.0) Thyroid Stimulating Hormone (TSH) 2.170 uIu/ml (0.300-4.500) Human Chorionic Gonadotropin, Qual NEG (NEG) Lyme Disease IgG Antibody NEG (NEG) Lyme Disease IgM Antibody NEG (NEG) Medications Administered Medications (Trade) Dose Ordered Sig/Wing Route Start Time Stop Time Status Last Admin Dose Admin Sodium Chloride 1,000 ml @ 999 mls/hr Q1H1M STAT IV 07/14/17 22:03 07/14/17 23:03 DC 07/14/17 23:32 999 MLS/HR ED Course Prior records/ancillary studies reviewed and summarized above. Nursing notes reviewed. Additional history obtained from family The patient's history was concerning for leg pain, rash, ongoing diarrhea who is now on antibiotics Differential diagnosis: Etiologies such as side effect antibiotics, vasculitis, erythema nodosum, bleeding disorder, metabolic, infection, hypo/hyperglycemia, electrolyte abnormalities, cardiac sources, intracerebral event, toxicologic, neurologic, as well as others were entertained. Physical examination: As above. ER treatment provided: IV Lock IV fluids On reassessment the patient felt better. Diagnostics interpretation by me: The labs revealed mild leukocytosis. Mild hypokalemia and this is replaced orally. Low inflammatory markers. Negative Lyme's test. Patient was concerned that she had Lyme's disease as she has had tick bites in the past Imaging studies: Ultrasound negative for DVT per radiology Exam and history seem consistent with ongoing diarrhea awaiting stool culture results that was reverified in the [employer] system that were currently pending who has folliculitis to the lower legs from shaving. Patient was advised to stop the antibiotic. She states her symptoms have not improved since being on the Zithromax. She is advised to follow-up with family care tomorrow or here in the ER sooner for chest pain, difficulty breathing, blood or black in the stool, worsening signs or symptoms or as needed. Patient was in the ER for greater than 3 hours and had no bowel movements at that time. By the evaluation outlined above emergent etiologies such as electrolyte abnormalities, cardiac sources, intracerebral event, toxologic, neurologic, abnormalities blood glucose, metabolic, as well as others were deemed relatively unlikely. The pt informed about the findings as listed above. All questions were answered and pleased with the treatment. Return instructions were outlined and the patient was discharged in stable condition. Case reviewed with my attending who also saw this patient with me Referral: The patient was referred back to primary care physician for follow-up in 2 to 3 days for a recheck of the current condition. Medical Decision as above Impression Primary Impression: Acute hypokalemia Additional Impressions: Diarrhea Rash Departure Information Dispostion Home / Self-Care Condition GOOD Referrals Cheo Burns M.D. Forms WORK / SCHOOL INSTRUCTIONS, HOME CARE DOCUMENTATION FORM, IMPORTANT VISIT INFORMATION Patient Instructions Diarrhea, My [facility], ED Diet [place] Additional Instructions Stop your antibiotic. Recommend a bland diet until symptoms resolve. Rest and drink plenty of fluids as tolerated. Continue current medications. Return to the ER immediately for worsening or persistent diarrhea, abdominal pain, vomiting, fevers, chest pains, difficulty breathing, worsening of your condition, or as needed. Follow up with your primary physician and hand packer in 2-3 days for a recheck of your current condition. Problem Qualifiers
== END 2017-07-15 00:41 | disposition home or self-care (01) ==
LOC: C.EDB 21:38 → C.EDC 07-15 00:41
DX: R19.7 Diarrhea, unspecified (principal); E87.6 Hypokalemia; R21 Rash and other nonspecific skin eruption; K21.9 Gastro-esophageal reflux disease without esophagitis; M51.26 Other intervertebral disc displacement, lumbar region; Z86.711 Personal history of pulmonary embolism; Z87.442 Personal history of urinary calculi; Z98.890 Other specified postprocedural states; Z88.2 Allergy status to sulfonamides

== ENCOUNTER 2017-07-15 18:34 | Emergency (ER) | payer OTHER ==
[~2017-07-15] VITALS: Ht 157.5 cm; Wt 50.5 kg
[2017-07-15 18:38] VITALS: TEMP 36.8; Ht 157.5 cm; Wt 50.5 kg
--- NOTE | 2017-07-15 19:19 | EMERGENCY ROOM VISIT NOTE ---
History First contact with patient: 18:54 Chief Complaint: LEG PAIN,LEG INJURY Stated Complaint: LEG SWELLING/LEG PAIN/DIARRHEA History of Present Illness The patient is a 42 year old female who presents to the Emergency Room with complaints of bloody diarrhea for 9 days. Came to the ER on Jul 12 prescribed azithromycin. Cramping on left side 4 days previously - this appears to be improving. She followed up with [facility] primary care physician on 07/13/16 and took stool samples - negative for cryptosporidium. She then started to have purple (bruising-like) painful bumps on her legs b/l and "felt like blood was pushing outside on her legs". ESR 9 on 07/14/17. US doppler was negative for DVT b /l. She returned today due to her left leg swelling becoming much worse. Hx PE 4-5 days after kidney stones previously. Review of Systems see below Constitutional: No fever, No chills, No sweats, No weight loss, No weakness , No fatigue, No problem reported Eyes: No worsening of vision, No eye pain, No redness, No discharge, No diplopia, No problem reported ENT: No hearing loss, No unusual epistaxis, No nasal symptoms, No sore throat, No tinnitus, No dental problems, No trouble swallowing, No problem reported Respiratory: No cough, No sputum, No wheezing, No shortness of breath, No dyspnea on exertion, No dyspnea at rest, No hemoptysis, No problem reported Cardiovascular: No chest pain, No orthopnea, No PND, No edema, No claudication, No palpitations, No problem reported Abdomen: + diarrhea (bloody), + GI bleeding Musculoskeletal: + joint pain, + muscle pain, + swelling, + calf pain Genitourinary - Female: No dysuria Neurologic: No memory loss, No numbness/tingling, No vertigo, No balance problems Hematologic / Lymphatic: + clotting problems Past Medical/Surgical History Medical Problems: (1) Esophageal Reflux (2) Kidney stones (3) Lumbar Disc Displacement (4) Pulmonary embolism Surgical Problems: (1) Status post wrist surgery Family History No significant family history Social History Smoking Status: Never Smoker Smokeless Tobacco Use: No Alcohol Use: occasionally Drug Use: none Marital Status: Occupation Status: employed Current/Historical Medications Scheduled Ondasetron Odt (Zofran Odt), 4 MG SL Q6H Physical Exam Vital Signs Date Time Temp Pulse Resp B/P (MAP) Pulse Ox O2 Delivery O2 Flow Rate FiO2 07/15/17 23:30 78 18 112/71 100 Room Air 07/15/17 22:40 79 14 97/53 98 Room Air 07/15/17 21:00 76 17 113/65 100 Room Air 07/15/17 19:49 73 14 111/67 100 Room Air 07/15/17 18:38 36.8 79 18 122/68 100 Room Air Physical Exam GENERAL: Awake, alert, well-appearing, in moderate distress. EYES: Normal conjunctiva. Sclera non-icteric. NECK: Supple. No nuchal rigidity. FROM. No JVD. RESPIRATORY: Clear to auscultation. CARDIAC: Regular rate, normal rhythm. Extremities warm and well perfused. Pulses equal/peripheral pulses normal. Capillary refill normal. ABDOMEN: Soft, non-distended. No tenderness to palpation. Guarding present in LLQ and suprapubic. No masses. MUSCULOSKELETAL: The back is symmetrical on inspection without obvious abnormality. There is no CVA tenderness to palpation. No joint edema. LOWER EXTREMITIES: Calves are equal size bilaterally and extremely tender. No edema. No discoloration. Small area of redness 3cm x 6cm on the back of her left popliteal fossa from previous LL USS for DVT NEURO: Normal sensorium. No sensory or motor deficits noted. SKIN: No rash or jaundice noted. Medical Decision & Procedures Laboratory Results 07/15/17 19:35 Red Blood Count 4.68, Mean Corpuscular Volume 85.5, Mean Corpuscular Hemoglobin 30.6, Mean Corpuscular Hemoglobin Concent 35.8, Mean Platelet Volume 8.4, Neutrophils (%) (Auto) 69.1, Lymphocytes (%) (Auto) 14.2, Monocytes (%) (Auto) 9.7, Eosinophils (%) (Auto) 6.4, Basophils (%) (Auto) 0.3, Neutrophils # (Auto) 10.06, Lymphocytes # (Auto) 2.07, Monocytes # (Auto) 1.41, Eosinophils # (Auto) 0.93, Basophils # (Auto) 0.05 07/15/17 19:35 Test 07/15/17 19:35 White Blood Count 14.57 K/uL (4.8-10.8) Red Blood Count 4.68 M/uL (4.2-5.4) Hemoglobin 14.3 g/dL (12.0-16.0) Hematocrit 40.0 % (37-47) Mean Corpuscular Volume 85.5 fL (80-100) Mean Corpuscular Hemoglobin 30.6 pg (25-34) Mean Corpuscular Hemoglobin Concent 35.8 g/dl (32-36) Platelet Count 416 K/uL (130-400) Mean Platelet Volume 8.4 fL (7.4-10.4) Neutrophils (%) (Auto) 69.1 % Lymphocytes (%) (Auto) 14.2 % Monocytes (%) (Auto) 9.7 % Eosinophils (%) (Auto) 6.4 % Basophils (%) (Auto) 0.3 % Neutrophils # (Auto) 10.06 K/uL (1.4-6.5) Lymphocytes # (Auto) 2.07 K/uL (1.2-3.4) Monocytes # (Auto) 1.41 K/uL (0.11-0.59) Eosinophils # (Auto) 0.93 K/uL (0-0.5) Basophils # (Auto) 0.05 K/uL (0-0.2) RDW Standard Deviation 39.0 fL (36.4-46.3) RDW Coefficient of Variation 12.5 % (11.5-14.5) Immature Granulocyte % (Auto) 0.3 % Immature Granulocyte # (Auto) 0.05 K/uL (0.00-0.02) Erythrocyte Sedimentation Rate 15 mm/hr (0-21) Prothrombin Time 10.8 SECONDS (9.0-12.0) Prothromb Time International Ratio 1.0 (0.9-1.1) Activated Partial Thromboplast Time 25.0 SECONDS (21.0-31.0) Partial Thromboplastin Ratio 1.0 Anion Gap 9.0 mmol/L (3-11) Est Creatinine Clear Calc Drug Dose 71.4 ml/min Estimated GFR () 103.0 Estimated GFR (Non- 88.9 BUN/Creatinine Ratio 4.6 (10-20) Calcium Level 8.8 mg/dl (8.5-10.1) Phosphorus Level 2.8 mg/dl (2.5-4.9) Magnesium Level 2.2 mg/dl (1.8-2.4) Total Bilirubin 0.5 mg/dl (0.2-1) Aspartate Amino Transf (AST/SGOT) 22 U/L (15-37) Alanine Aminotransferase (ALT/SGPT) 19 U/L (12-78) Alkaline Phosphatase 58 U/L (45-117) Total Creatine Kinase 206 U/L (26-192) C-Reactive Protein 1.72 mg/dl (0-0.29) Total Protein 7.4 gm/dl (6.4-8.2) Albumin 3.9 gm/dl (3.4-5.0) Globulin 3.5 gm/dl (2.5-4.0) Albumin/Globulin Ratio 1.1 (0.9-2) Medications Administered Medications (Trade) Dose Ordered Sig/Wing Route Start Time Stop Time Status Last Admin Dose Admin Morphine Sulfate (MoRPHine SULFATE INJ) 2 mg NOW STAT IV 07/15/17 19:39 07/15/17 19:42 DC 07/15/17 19:46 2 MG Sodium Chloride 500 ml @ 999 mls/hr Q31M STAT IV 07/15/17 22:42 07/15/17 23:12 DC 07/15/17 22:55 999 MLS/HR Potassium Chloride (Klor-Con Tab) 20 meq ONE STAT PO 07/15/17 22:43 07/15/17 22:45 DC 07/15/17 22:55 20 MEQ ED Course 1900: Complete history and physical performed by myself and Dr Vargas 1930: patient given 2 mg morphine and pain has diminished drastically. 2029: Spoke with radiology about getting duplex ultrasound of iliacs 2049: Spoke with Dr. Franks from GI, discussed additional tests that could be performed; patient should follow up with GI as outpatient. 2229: Patient urged to attempt ambulation but felt she could not tolerate without crutches. 2354: Patient reassessed by Dr. Vargas; patient was able to weight bear but requested crutches. She was given the choice of staying in/being admitted, but patient elected for discharge. Patient provided with crutches and prescription for outpatient c.difficile stool testing. Medical Decision Prior records/ancillary studies reviewed. Triage Nursing notes reviewed. Additional history obtained from the patient and family. The patient's history was concerning for possible gastrointestinal bleeding. Differential diagnosis: Etiologies such as diverticulosis, AVM, coagulopathy, colitis, inflammatory bowel disease, malignancy, fissure, hemorrhoids, as well as others were entertained. Physical exam: As above. The patients vital signs were normal. ER treatment provided: Patient given 2 mg morphine for pain; which effectively controlled her leg pain On reassessment the patient felt better. Diagnostics interpreted by me: The labs revealed WBC 14.57, CK 206, CRP 1.72 Likely reflection of infectious colitis. Imaging studies: Iliac ultrasound was performed to check for clot; Normal; no clot detected. Discussed case with gastro, Dr. Franks, who suggested stool tests which were ordered. Patient unable to provide stool sample during her 4 hour hospital stay. Discussed possible admission due to high white cell count and her inability to ambulate. On exam, peripheral pulses continued to remain normal, capillary refill continued to remain normal, therefore arterial embolus remains unlikely. CRP and WBC elevation likely reflect infectious colitis. Patient did not wish to be admitted and asked if she could be given crutches to ambulate as an outpatient. Ambulation was tested at 2230, patient could not tolerate and requested crutches. Referral: The patient was referred back to their primary care physician for follow-up in 2 to 3 days for a recheck of the current condition, and to follow up with GI services as an outpatient. Blood Pressure Screening Patient's blood pressure: Normal blood pressure Impression Primary Impression: Leg pain, left Departure Information Dispostion Home / Self-Care Condition FAIR Referrals Ranulfo Downs D.O. (PCP) Patient Instructions My [facility] Additional Instructions GASTROINTESTINAL(GI) BLEEDING: You were evaluated today for intestinal bleeding. Your doctor did not find any serious cause to warrant an admission to the hospital. It is not uncommon for bleeding to be discharged for outpatient testing and follow up visits. You may eat a regular high fiber diet, without restrictions. Cereals, fruits and vegetables are a good source of fiber. Continue current medications. Return to the ER immediately for abdominal pain, black or worsening bloody stool , passing out or feeling like you may pass out, vomiting, fevers, chest pains, difficulty breathing, worsening of your condition, or as needed. Follow up with your primary physician's office on the next business day to set up a follow up appointment for a recheck of your current condition. Follow up with Gastroenterology for a recheck of your current condition. Call the clinic and tell the junior legal secretary you were referred from the ER. Resident Tracking Resident Involvement: Resident Care Provided Care Provided: Adult ED
[2017-07-15] MEDS ORDERED: MoRPHine SULFATE 2 MG/ML CARP IV STA (19:39)
[2017-07-15 19:48] LABS: BASO % 0.3 %; BASO ABS # 0.05 K/uL (0-0.2); COMPLETE YES; EOS % 6.4 %; IG% 0.3 %; LYMPH % 14.2 %; LYMPH ABS # 2.07 K/uL (1.2-3.4); MEAN CELL VOLUME 85.5 fL (80-100); MEAN CORPUSCULAR HEMOGLOBIN 30.6 pg (25-34); MEAN CORPUSCULAR HGB CONC 35.8 g/dl (32-36); MEAN PLATELET VOLUME 8.4 fL (7.4-10.4); MONO % 9.7 %; NEUT % 69.1 %; PLATELET COUNT 416 K/uL (130-400); RED BLOOD COUNT 4.68 M/uL (4.2-5.4); WHITE BLOOD COUNT 14.57 K/uL (4.8-10.8)
[2017-07-15 20:04] LABS: PROTHROMBIN TIME (PATIENT) 10.8 SECONDS (9.0-12.0)
[2017-07-15 20:06] LABS: BUN/CREATININE RATIO 4.6 (10-20); C-REACTIVE PROTEIN 1.72 mg/dl (0-0.29); CALCIUM 8.8 mg/dl (8.5-10.1); CREATININE 0.82 mg/dl (0.60-1.20); POTASSIUM 3.2 mmol/L (3.5-5.1)
[2017-07-15 20:09] LABS: ALB/GLOB RATIO 1.1 (0.9-2)
--- NOTE | 2017-07-15 22:23 | DIAGNOSTIC IMAGING REPORT ---
DUPLEX AORTA/IVC/ILIACS ULTRASOUND CLINICAL HISTORY: Left leg swelling. COMPARISON STUDY: Left leg venous Doppler 07/14/2017. FINDINGS: The left iliac artery and veins are patent. No evidence for deep venous thrombosis. No fluid collections or masses along the path of the left iliac vessels. IMPRESSION: The left iliac vein is patent. Electronically signed by: Talib Eng M.D. 07/15/2017 10:22 PM Dictated Date/Time: 07/15/2017 10:20 PM
[2017-07-15] MEDS ORDERED: SODIUM CHLORIDE 0.9% 500ML 500 ML IV STA (22:42)
[2017-07-15] MEDS ORDERED: POTASSIUM CHLORIDE 20 MEQ TABCR PO STA (22:43)
--- NOTE | 2017-07-15 22:52 | EMERGENCY ROOM VISIT NOTE ---
ED Visit Note First contact with patient: 18:52 Pt seen and examined at bedside with the resident. Patient with extensive evaluation here, repeat Dopplers which were negative, patient able to walk, however requesting crutches that she states she still had leg pain. No evidence of rhabdomyolysis, no evidence of Soliman's cyst or DVT. No evidence of cellulitis, deformity, trauma. Compartments soft, doubt compartment syndrome. Patient's abdomen soft and nontender, patient states no diarrhea since 1 PM, and felt that stools history and today were more formed than prior. Review of patient's outpatient follow-up should she had negative stool cultures, no history of inflammatory bowel disease. No rash or sores noted on patient's lower extremities to suggest erythema nodosum and an occult inflammatory bowel disease although this was discussed with the patient at bedside. She had previous been advised to call and follow-up with GI as soon as possible and that she may need colonoscopy. Patient offered admission for observation due to pain and initial complaints of difficulty with ambulation at bedside several times, patient declined, asking for crutches and wanted to go home. Discussed with patient symptoms to watch and return for, need for close follow-up with PCP as well as GI, she verbalized understanding was agreeable with plan.
[2017-07-15 23:21] LABS: MAGNESIUM 2.2 mg/dl (1.8-2.4); PHOSPHORUS 2.8 mg/dl (2.5-4.9)
[2017-07-16 00:20] VITALS: BP 118/70; PULSE 70; O2SAT 98
== END 2017-07-16 00:20 | disposition home or self-care (01) ==
LOC: C.EDA 19:12
DX: M79.662 Pain in left lower leg (principal); K21.9 Gastro-esophageal reflux disease without esophagitis; I26.99 Other pulmonary embolism without acute cor pulmonale

== ENCOUNTER 2023-09-12 04:57 | Inpatient (IN) ==
[2023-09-12] MEDS ORDERED: SODIUM CHLORIDE 0.9% 1,000 ML IV ONE (05:12)
[2023-09-12] MEDS ORDERED: MoRPHine SULFATE 4 MG/ML 1 ML CARP\\VIAL IV STA ×2 (05:12→06:10)
[2023-09-12] MEDS ORDERED: ONDANSETRON INJ 2 MG/ML 2 ML VIAL IV STA (05:12)
--- NOTE | 2023-09-12 05:17 | Emergency Department Note ---
History of Present Illness General Chief complaint: Back Injury/Pain Time Seen by Provider: 09/12/23 05:03 History of Present Illness Maximum Pain Intensity: 9 This 48-year-old female presents the ER with partner for evaluation of right flank pain and right lower abdominal pain for the past day. She has had a kidney stone in the past but this feels different. Patient denies chest pain, dyspnea, fevers, cough, congestion, diarrhea. She does have urinary frequency. Home Medications Medication Instructions Recorded Confirmed Type ondansetron 4 mg disintegrating 4 mg PO Q6H PRN nausea and 06/12/20 09/12/23 Rx tablet vomiting #12 tabs fluticasone propionate 50 50 mcg intranasal DAILY PRN 09/12/23 09/12/23 History mcg/actuation nasal Allergy Symptoms spray,suspension mesalamine 1.2 gram tablet,delayed 1.2 g PO DAILY 09/12/23 09/12/23 History release multivitamin with minerals-folic 1 tab PO DAILY 09/12/23 09/12/23 History acid 200 mcg chewable tablet (Multivitamin Gummies) Allergies Allergy/AdvReac Type Severity Reaction Status Date / Time Sulfa (Sulfonamide Allergy Unknown HIVES Unverified 09/12/23 09:27 Antibiotics) azithromycin Allergy Unresponsiv Unverified 09/12/23 09:27 [From Zithromax Z-Darvin] e gluten AdvReac Verified 09/12/23 13:42 Past Med/Surg History Medical History (Updated 09/12/23 @ 22:08 by Dianne Chappell PA-C) IBD (inflammatory bowel disease) Crohn's disease Social History Smoking Status: Never smoker Tobacco Type: Cigarettes Hx Alcohol Use: No Hx Substance Use: No Preferred Language: Arabic Communication Ability: Effective Process Control Tech Required: No Beliefs That Will Affect Care: None Current Living Situation: Spouse Other Information That Helps Us Care for You: No Feels Safe at Home: Yes Assistive Devices: None Review of Systems A total of 10 systems reviewed and were otherwise negative Physical Exam Vital Signs Vital Signs - 24 hr 09/12/23 04:58 09/12/23 05:20 09/12/23 07:03 Temperature 36.4 C L Temperature Source Temporal Artery Scan Pulse Rate 73 56 L Pulse Rate [Apical] 52 L Respiratory Rate 16 18 Respiratory Effort / Characteristics Non-Labored Spontaneous Respiratory Depth Normal Respiratory Pattern Regular Blood Pressure 126/77 Blood Pressure [Left Arm] 96/60 L Blood Pressure Mean 93 Blood Pressure Mean [Left Arm] 72 Pulse Oximetry 100 97 Oxygen Delivery Method Room Air Sepsis Recent Fever Within 48 Hours No Sepsis New/Unexplained Change in Mental Status No Sepsis Action Taken by Nursing No Action Required 09/12/23 08:42 09/12/23 09:59 Temperature Temperature Source Pulse Rate Pulse Rate [Apical] 65 63 Respiratory Rate 18 18 Respiratory Effort / Characteristics Respiratory Depth Respiratory Pattern Blood Pressure Blood Pressure [Left Arm] 116/69 112/71 Blood Pressure Mean Blood Pressure Mean [Left Arm] 84 84 Pulse Oximetry 96 96 Oxygen Delivery Method Sepsis Recent Fever Within 48 Hours Sepsis New/Unexplained Change in Mental Status Sepsis Action Taken by Nursing VITALS: Vitals are noted on the nurse's note and reviewed by myself. Vital signs stable GENERAL: White female ambulating without difficulties, in no acute distress, nondiaphoretic, well-developed well-nourished. SKIN: The skin was without rashes, erythema, edema, or bruising. There is no tenting of the skin. Capillary reflex less than 2 seconds. HEAD: Normocephalic atraumatic. EARS: External auditory canals clear, EYES: Pupils equal round and reactive to light and accommodation. Conjunctivae without injection, sclerae without icterus. Extraocular movements intact. NOSE: Patent, turbinates without inflammation or discharge. MOUTH: Mucous membranes moist. Pharynx without erythema or exudate. Uvula midline. Airway patent. Tongue does not deviate. NECK: Supple without nuchal rigidity. No lymphadenopathy. No thyromegaly. Cervical spine is nontender. No JVD. HEART: Regular rate and rhythm LUNGS: Clear to auscultation bilaterally without wheezes, rales or rhonchi. No retractions or accessory muscle use. ABDOMEN: Positive bowel sounds x 4. Normal tympanic percussion. Soft, nontender, without masses or organomegaly. Carrera sign negative. No guarding or rebound tenderness. Right CVA tenderness MUSCULOSKELETAL: No muscle atrophy, erythema, or edema noted. NEURO: Patient was alert and oriented to person place and time. Normal sensation to light and sharp touch. No focal neurological deficits. Course Administered Medications Acetaminophen (Acetaminophen 325 Mg Tab) 650 mg PO Q4H PRN PRN Reason: pain/fever Stop: 10/12/23 09:58 Last Admin: 09/12/23 20:57 Dose: 650 mg Documented By: SHARRON Diatrizoate Meglumine (Diatrizoate Meglumine 30% 100ml Vial) 100 ml INSTIL UD PRN PRN Reason: Intra Operative Stop: 09/16/23 10:40 Last Admin: 09/12/23 11:06 Dose: 10 ml Documented By: [id number] Promethazine HCl 12.5 mg/ (Sodium Chloride) 50.5 mls @ 202 mls/hr IV Q6H PRN PRN Reason: Nausea And Vomiting Stop: 10/12/23 20:01 Last Infusion: 09/12/23 21:33 Dose: Infused Documented By: Admin: 09/12/23 20:42 Dose: 202 mls/hr Documented By: SHARRON Ketorolac Tromethamine (Ketorolac Tromethamine 15 Mg/Ml Vial) 10 mg IV Q6H PRN PRN Reason: moderate pain Stop: 09/17/23 10:14 Last Admin: 09/12/23 14:00 Dose: 10 mg Documented By: IVANIA Lactobacillus Acidophilus (Advanced Probiotic 1250 Mg Capsule) 2 cap PO DAILY DORENE Stop: 10/12/23 10:14 Last Admin: 09/12/23 16:14 Dose: Not Given Documented By: IVANIA Ondansetron HCl (Ondansetron 4 Mg Od Tab) 4 mg PO Q6H PRN PRN Reason: nausea and vomiting Stop: 10/12/23 12:07 Last Admin: 09/12/23 19:14 Dose: 4 mg Documented By: IVANIA Discontinued Medications Hydrocodone Bitart/Acetaminophen (Hydrocodone/Acetamophen 5/325mg Tab) Confirm Administered Dose 1 tab PO .STK-MED ONE Stop: 09/12/23 10:14 Last Admin: 09/12/23 10:16 Dose: Not Given Documented By: KIRAN Sodium Chloride (Nss) 1,000 mls @ 999 mls/hr IV .Q1H1M ONE Stop: 09/12/23 06:12 Last Infusion: 09/12/23 06:26 Dose: Infused Documented By: Admin: 09/12/23 05:22 Dose: 999 mls/hr Documented By: MALCOLM Ceftriaxone Sodium (Rocephin) 1,000 mg in 50 mls @ 100 mls/hr IV NOW STA Stop: 09/12/23 06:56 Last Infusion: 09/12/23 06:59 Dose: Infused Documented By: Admin: 09/12/23 06:44 Dose: 100 mls/hr Documented By: MALCOLM Ioversol (Optiray 320 100ml) 93 ml IV ONCE ONE Stop: 09/12/23 05:57 Last Admin: 09/12/23 05:57 Dose: 93 ml Documented By: SILVERIO Ketorolac Tromethamine (Ketorolac Tromethamine 15 Mg/Ml Vial) 10 mg IV NOW STA Stop: 09/12/23 06:08 Last Admin: 09/12/23 06:14 Dose: 10 mg Documented By: MALCOLM Ketorolac Tromethamine (Ketorolac Tromethamine 15 Mg/Ml Vial) 10 mg IV NOW STA Stop: 09/12/23 06:11 Last Admin: 09/12/23 06:15 Dose: Not Given Documented By: MALCOLM Morphine Sulfate (Morphine Sulfate 4 Mg/Ml 1 Ml Carp\Vial) 4 mg IV NOW STA Stop: 09/12/23 05:13 Last Admin: 09/12/23 05:22 Dose: 4 mg Documented By: MALCOLM Morphine Sulfate (Morphine Sulfate 4 Mg/Ml 1 Ml Carp\Vial) 4 mg IV NOW STA Stop: 09/12/23 06:11 Last Admin: 09/12/23 09:46 Dose: Not Given Documented By: KIRAN Ondansetron HCl (Ondansetron Inj 2 Mg/Ml 2 Ml Vial) 4 mg IV NOW STA Stop: 09/12/23 05:13 Last Admin: 09/12/23 05:22 Dose: 4 mg Documented By: MALCOLM Medical Decision Making Medical Records Attestation: I reviewed the patient's medical records. Home Medications Current Medication List: was personally reviewed by me Laboratory Data Attestation: I reviewed the patient's lab results. 09/12/23 05:14 09/12/23 05:14 Lab Results 09/12/23 09/12/23 Range/Units 05:14 05:23 WBC 7.50 (4.8-10.8) K/ul RBC 4.67 (4.20-5.40) M/uL Hgb 13.9 (12.0-16.0) g/dl POC Hgb 14.3 (12.0-16.0) g/dl Hct 40.4 (37.0-47.0) % POC Hct 42 (37-47) % MCV 86.5 (80.0-100.0) fL MCH 29.8 (25.0-34.0) pg MCHC 34.4 (32.0-36.0) g/dL RDW Std Deviation 38.8 (36.4-46.3) fL RDW Coeff of Renae 12.3 (11.5-14.5) % Plt Count 368 (130-400) K/uL MPV 9.3 L (9.4-12.4) fL Immature Gran % (Auto) 0.1 % Neut % (Auto) 43.9 % Lymph % (Auto) 44.5 % [place] % (Auto) 8.7 % Eos % (Auto) 1.9 % Baso % (Auto) 0.9 % Neut # (Auto) 3.29 (1.40-6.50) K/uL Lymph # (Auto) 3.34 (1.20-3.40) K/uL [place] # (Auto) 0.65 H (0.11-0.59) K/uL Eos # (Auto) 0.14 (0.00-0.50) K/uL Baso # (Auto) 0.07 (0.00-0.20) K/uL Immature Gran # (Auto) 0.01 (0.01-0.20) K/uL POC Sodium 142 (135-144) mmol/L Sodium 140 (136-145) mmol/L POC Potassium 3.5 (3.3-5.0) mmol/L Potassium 3.5 (3.5-5.1) mmol/L POC Chloride 107 (101-112) mmol/L Chloride 107 (98-107) mmol/L Carbon Dioxide 25 (21-32) mmol/L POC Total CO2 23 L (24-31) mmol/L Anion Gap 8 (3-11) POC Anion Gap 16.0 (16-25) mmol/L POC BUN 17 (7-18) mg/dl BUN 19 (6-23) mg/dl Creatinine 0.90 (0.6-1.2) mg/dl POC Creatinine 0.9 (0.6-1.3) mg/dl Est Cr Clr Drug Dosing 60.0 ml/min Est GFR ( Amer) 88.3 ml/min Est GFR (Non-Af Amer) 76.1 ml/min BUN/Creatinine Ratio 21.1 H (10-20) Glucose 113 H (70-99(Fasting)) mg/dl POC Glucose (other) 116 H (70-99) mg/dl Calcium 9.5 (8.6-10.3) mg/dl POC Ioniz Calcium Christa 1.15 (1.12-1.32) mmol/l Total Bilirubin 1.4 H (0.2-1.0) mg/dl AST 19 (13-39) U/L ALT 16 (7-52) U/L Alkaline Phosphatase 38 (34-104) U/L Total Protein 7.3 (6.0-8.3) gm/dl Albumin 4.5 (3.4-5.0) gm/dl Globulin 2.8 (2.5-4.0) gm/dl Albumin/Globulin Ratio 1.6 (0.9-2) Lipase 26 (11-82) U/L HCG, Qual Negative (Negative) Imaging Data Attestation: I personally reviewed and interpreted this imaging study as follows: Radiologist's Impression: Retrograde Pyelogram 09/12/23 10:00 FL retrograde includes kub CLINICAL HISTORY: RT CYSTO STENT TECHNIQUE: 2 views were obtained with the C-arm in the OR with the above procedure. Total fluoroscopy time was 6.3 seconds. Radiation dose was 0.74 mGy. Comparison: CT abdomen pelvis 09/12/2023 FINDINGS/IMPRESSION: Intraoperative images were obtained of right retrograde pyelogram with stent placement. Please correlate with intraoperative fluoroscopy and operative report. ACT 112: Negative or not required by law. Electronically signed by: Keyon Whitney M.D. 09/12/2023 5:07 PM [facility] Narrative Prior records/ancillary studies reviewed. Triage Nursing notes reviewed. Additional history obtained from the family. The patient's history was concerning for right flank and abdominal pain. Differential diagnosis: Etiologies such as renal colic, appendicitis, diverticulitis, mesenteric ischemia, aortic pathology, infections, inflammatory bowel disease, PUD, biliary pathology, UTI, as well as others were entertained. Physical examination findings: As above. ER treatment provided: Morphine Zofran IV fluids were ordered Morphine and Toradol also given Rocephin was given for possible urine infection On reassessment the patient felt better. Diagnostic interpretation by me: The labs Independently Interpreted by myself revealed no worrisome leukocytosis, stable H&H. Urinalysis revealed there was concerns for possible infection versus contamination and culture was sent Glucose 113 Imaging studies: pending Case signed out to oncoming provider pending CAT scan and reevaluation in stable condition. Patient most likely has a kidney stone with possible urine infection versus contamination. The chart was completed utilizing [employer] Speech voice recognition software. Grammatical errors, random word insertions, pronoun errors, and incomplete sentences are an occassional consequence of this system due to software limitations, ambient noise, and hardware issues. Any formal questions or concerns about the content, text, or information contained within the body of this dictation should be directly addressed to the physician autopsy assistant for clarification. Impression & Plan Renal colic on right side, Acute UTI Discharge Plan Visit Data Chief Complaint: Back Injury/Pain ED Provider: Genna Cole ED Midlevel Provider: Joey Crowder Discharge Problem: Renal colic on right side, Acute UTI Patient Disposition: Admitted As Inpatient Condition: Good Discharge Instructions Interventions: ED Discharge Assessment Last Done: 09/12/23 10:31
[2023-09-12 05:36] LABS: iSTAT Creatinine 0.9 mg/dl (0.6-1.3); iSTAT Hemoglobin 14.3 g/dl (12.0-16.0); iSTAT Ionized Calcium 1.15 mmol/l (1.12-1.32); iSTAT Potassium 3.5 mmol/L (3.3-5.0)
[2023-09-12 05:45] LABS: Albumin Globulin Ratio 1.6 (0.9-2); Albumin Level 4.5 gm/dl (3.4-5.0); BUN Creatinine Ratio 21.1 (10-20); Bilirubin,Total 1.4 mg/dl (0.2-1.0); Calcium 9.5 mg/dl (8.6-10.3); Est GFR (African American) 88.3 ml/min; Est GFR (Non-African American) 76.1 ml/min; Globulin 2.8 gm/dl (2.5-4.0); Potassium 3.5 mmol/L (3.5-5.1); Total Protein 7.3 gm/dl (6.0-8.3)
[2023-09-12] MEDS ORDERED: OPTIRAY 320 100ml IV ONE (05:56)
[2023-09-12] MEDS ORDERED: KETOROLAC TROMETHAMINE 15 MG/ML VIAL IV STA ×2 (06:07→06:10)
[2023-09-12 06:09] LABS: Basophils # (auto) 0.07 K/uL (0.00-0.20); Basophils % (auto) 0.9 %; Eosinophils # (auto) 0.14 K/uL (0.00-0.50); Eosinophils % (auto) 1.9 %; Hematocrit (blood only) 40.4 % (37.0-47.0); Hemoglobin 13.9 g/dl (12.0-16.0); Immature Granulocytes # (auto) 0.01 K/uL (0.01-0.20); Immature Granulocytes % (auto) 0.1 %; Lymphocytes # (auto) 3.34 K/uL (1.20-3.40); Lymphocytes % (auto) 44.5 %; Mean Corpuscular Hemoglobin 29.8 pg (25.0-34.0); Mean Corpuscular Hgb Conc 34.4 g/dL (32.0-36.0); Mean Corpuscular Volume 86.5 fL (80.0-100.0); Mean Platelet Volume 9.3 fL (9.4-12.4); Monocytes # (auto) 0.65 K/uL (0.11-0.59); Monocytes % (auto) 8.7 %; Neutrophils # (auto) 3.29 K/uL (1.40-6.50); Neutrophils % (auto) 43.9 %; Platelet Count 368 K/uL (130-400); RDW Coefficient of Variation 12.3 % (11.5-14.5); RDW Standard Deviation 38.8 fL (36.4-46.3); Red Blood Count 4.67 M/uL (4.20-5.40)
[2023-09-12 06:21] LABS: Appearance Urine Cloudy (Clear); Bacteria Urine Automated Negative (Negative); Bilirubin Urine Negative (Negative); Blood Urine 3+ (Negative); Color Urine Orange; Epithelial Cell Urine Auto >30 /lpf (0-5); Glucose Urine UA Negative (Negative); Ketones Urine Trace (Negative); Leukocyte Esterase Urine 1+ (Negative); Nitrite Urine Negative (Negative); Protein Urine 1+ (Negative); RBC Urine Automated >30 /hpf (0-4); Urobilinogen Urine Negative (Negative); pH Urine 5.5 (4.5-7.5)
[2023-09-12] MEDS ORDERED: cefTRIAXone SODIUM 1,000 MG/50 ML BAG IV STA (06:27)
[2023-09-12 06:28] LABS: Pregnancy Test, Serum Negative (Negative)
--- NOTE | 2023-09-12 08:18 | CT Scan Report ---
CT abd pelvis IV con only CLINICAL HISTORY: rlq/flank pain TECHNIQUE: Helical axial images of the abdomen and pelvis were obtained and displayed. Automated dose lowering techniques and/or adjustment according to patient size were utilized for this exam. This e xam was performed with intravenous contrast. CT DOSE: 342.82 mGy.cm COMPARISON: Comparison is made to CT abdomen pelvis 05/01/2022 FINDINGS: Lower chest: No acute abnormality. Liver: Unremarkable. No focal lesions are seen. Gallbladder and biliary tree: No calcified gallstones. Normal caliber wall. Trace pericholecystic flu id is seen, nonspecific No intra- or extrahepatic biliary ductal dilation. Pancreas: Unremarkable, no focal lesions. Spleen: Unremarkable. Adrenals: Unremarkable. Kidneys and ureters: Nonobstructive distal ureteral stone on the right measures 4 mm in diameter with hydronephrosis and hydroureter. Nonobstructive stones are also seen bilaterally. Subcentimeter hypod ensities are favored to represent cysts. Bladder: Limited evaluation due to underdistention. Reproductive organs: Incidental note is made of uterine calcification. Bowel: Unremarkable. Lymph nodes Retroperitoneal: Unremarkable. Pelvic: Unremarkable. Mesenteric: Unremarkable. Peritoneum: Normal. Vessels: Unremarkable. Abdominal wall: Unremarkable. Bones: Left pars defect is seen at L5-S1. IMPRESSION: 1. Right hydronephrosis and hydroureter secondary to obstructive stone. 2. Periportal edema and pericholecystic fluid is nonspecific. No gallbladder wall thickening is seen . ACT 112: Negative or not required by law. Electronically signed by: Keyon Whitney M.D. 09/12/2023 8:17 AM
--- NOTE | 2023-09-12 08:58 | Emergency Department Note ---
ED Visit Note Patient case signed out to me at 0700 hrs. by Gina Chappell PA-C. This was pending CT scan result of the abdomen and pelvis. Please refer to documentation prior to time of signout regarding presentation and details up until point of signout. Patient presents to us today with right flank pain. She has a history of kidney stones. This feels similar but worse in regard to persistence of pain. CT scan did result showing right hydronephrosis and hydroureter secondary to obstructive stone. There is also comment of periportal edema and perichol ecystic fluid being nonspecific. No gallbladder wall thickening is seen. The patient's pain is not suggestive of liver/gallbladder issue, rather is secondary to the obstructive stone. Labs reveal no leukocytosis or concerning anemia. No emergent metabolic disturbance. There is no transaminitis. Mild T. bili elevation at 1.4. Urinalysis reveals what is likely a contaminated sample. Benefit versus risk of inpatient versus outpatient management discussed with the patient. I also discussed the case with urology, Dr. Gómez. Patient amenable to proceeding with procedure. Patient already empirically covered with antibiotics. Case discussed with the hospitalist service. Please refer to further documentation regarding her stay. Please refer to documentation below regarding radiology report. CT abd pelvis IV con only CLINICAL HISTORY: rlq/flank pain TECHNIQUE: Helical axial images of the abdomen and pelvis were obtained and displayed. Automated dose lowering techniques and/or adjustment according to patient size were utilized for this exam. This exam was performed with intravenous contrast. CT DOSE: 342.82 mGy.cm COMPARISON: Comparison is made to CT abdomen pelvis 05/01/2022 FINDINGS: Lower chest: No acute abnormality. Liver: Unremarkable. No focal lesions are seen. Gallbladder and biliary tree: No calcified gallstones. Normal caliber wall. Trac e pericholecystic fluid is seen, nonspecific No intra- or extrahepatic biliary ductal dilation. Pancreas: Unremarkable, no focal lesions. Spleen: Unremarkable. Adrenals: Unremarkable. Kidneys and ureters: Nonobstructive distal ureteral stone on the right measures 4 mm in diameter with hydronephrosis and hydroureter. Nonobstructive stones are also seen bilaterally. Subcentimeter hypodensities are favored to represent cysts. Bladder: Limited evaluation due to underdistention. Reproductive organs: Incidental note is made of uterine calcification. Bowel: Unremarkable. Lymph nodes Retroperitoneal: Unremarkable. Pelvic: Unremarkable. Mesenteric: Unremarkable. Peritoneum: Normal. Vessels: Unremarkable. Abdominal wall: Unremarkable. Bones: Left pars defect is seen at L5-S1. IMPRESSION: 1. Right hydronephrosis and hydroureter secondary to obstructive stone. 2. Periportal edema and pericholecystic fluid is nonspecific. No gallbladder wall thickening is seen. ACT 112: Negative or not required by law. Electronically signed by: Keyon Whitney M.D. 09/12/2023 8:17 AM .
--- NOTE | 2023-09-12 09:45 | Anesthesiology Consultation ---
Date of Service September 12, 2023 Assessment & Plan Chart Review Chart Review: Acceptable Risk for Surgery and Patient NOT seen in Pre Admission Testing Consults Requested none ASA [id number] Proposed Anesthesia Anesthesia Type: MAC History Surgery Operation Date: 09/12/23 11:00 Proposed Procedures p Cystoscopy Retrograde - Ranulfo Gómez MD Height/Weight Height: 5 ft 2 in Weight: 49.2 kg Allergies Allergy/AdvReac Type Severity Reaction Status Date / Time Sulfa (Sulfonamide Allergy Unknown HIVES Unverified 09/12/23 09:27 Antibiotics) azithromycin Allergy Unresponsiv Unverified 09/12/23 09:27 [From Zithromax Z-Darvin] e Medications Home Medications Medication Instructions Recorded Confirmed Last Taken ondansetron 4 mg disintegrating 4 mg PO Q6H PRN nausea and 06/12/20 09/12/23 09/11/23 tablet vomiting #12 tabs fluticasone propionate 50 50 mcg intranasal DAILY PRN 09/12/23 09/12/23 Unknown mcg/actuation nasal Allergy Symptoms spray,suspension mesalamine 1.2 gram tablet,delayed 1.2 g PO DAILY 09/12/23 09/12/23 09/09/23 release multivitamin with minerals-folic 1 tab PO DAILY 09/12/23 09/12/23 09/09/23 acid 200 mcg chewable tablet (Multivitamin Gummies) Past Medical History Medical History IBD (inflammatory bowel disease) Crohn's disease Hx/O DVT/PE Hx/O kidney stones Exercise / Class Metabolic Activity II 4-5 Yardwork/Stairs/Walk up hill Past Anesthesia History No Hx of Anesthesia Complications and No Family Hx of Anesthesia Complications History of PONV No Hx of PONV and No Hx of Motion Sickness Social History Smoking Status: Never smoker Physical Exam Vital Signs Last Vital Signs Temp 36.4 C L 09/12/23 04:58 Pulse 65 09/12/23 08:42 Resp 18 09/12/23 08:42 BP 116/69 09/12/23 08:42 Pulse Ox 96 09/12/23 08:42 O2 Del Method Room Air 09/12/23 04:58 Testing Laboratory Results 09/12/23 05:14 09/12/23 05:14 Urine Color Stearns 09/12/23 Unknown Urine Appearance Cloudy (Clear) A 09/12/23 Unknown Urine pH 5.5 (4.5-7.5) 09/12/23 Unknown Ur Specific Union 1.020 (1.000-1.030) 09/12/23 Unknown Urine Protein 1+ (Negative) H 09/12/23 Unknown Urine Glucose (UA) Negative (Negative) 09/12/23 Unknown Urine Ketones Trace (Negative) H 09/12/23 Unknown Urine Nitrite Negative (Negative) 09/12/23 Unknown Ur Leukocyte Esterase 1+ (Negative) H 09/12/23 Unknown Urine WBC (Auto) 10-30 /hpf (0-5) H 09/12/23 Unknown Urine RBC (Auto) >30 /hpf (0-4) H 09/12/23 Unknown U Hyaline Cast (Auto) 1-5 /lpf (0-5) 09/12/23 Unknown U Epithel Cells (Auto) >30 /lpf (0-5) H 09/12/23 Unknown Urine Bacteria (Auto) Negative (Negative) 09/12/23 Unknown 09/12/23 05:23 POC Glucose (other) 116 H
--- NOTE | 2023-09-12 09:58 | Urology Consultation ---
Date of Consultation September 12, 2023 Assessment & Plan (1) Right nephrolithiasis: Plan 48-year-old female with a right distal ureteral calculus as well as nonobstructing right renal stones. Discussed options including medical expulsive therapy versus cystoscopy with right ureteral stent placement. Due to pain control, patient would prefer right ureteral stent placement Discussed that I would not be treating any of her stones today and that she would need to come back for a second procedure to address all of her stones. She expressed understanding Risk and benefits discussed and consent obtained Patient's right side was marked Already on appropriate antibiotics To the OR for cystoscopy, right retrograde pyelogram and right ureteral stent placement History of Present Illness History of Present Illness 48-year-old female with a history nephrolithiasis who presented to the emergency department with right flank pain. Afebrile with stable vitals. Labs showed a white blood count of 7.5, creatinine of 0.9, and a urinalysis that was 1+ leukocyte Estrace, 10-30 WBCs, greater than 30 RBCs and no bacteria. She was given ceftriaxone. Independently reviewed a CT scan which shows right hydronephrosis with a distal obstructing ureteral calculus and nonobstructing stones in the right kidney. She reports a history of stones and previously had ureteroscopy in [place] with a stent placed. She tolerated the stent fairly well. Allergies Allergy/AdvReac Type Severity Reaction Status Date / Time Sulfa (Sulfonamide Allergy Unknown HIVES Unverified 09/12/23 09:27 Antibiotics) azithromycin Allergy Unresponsiv Unverified 09/12/23 09:27 [From Zithromax Z-Darvin] e Home Medications Medication Instructions Recorded Confirmed Type ondansetron 4 mg disintegrating 4 mg PO Q6H PRN nausea and 06/12/20 09/12/23 Rx tablet vomiting #12 tabs fluticasone propionate 50 50 mcg intranasal DAILY PRN 09/12/23 09/12/23 History mcg/actuation nasal Allergy Symptoms spray,suspension mesalamine 1.2 gram tablet,delayed 1.2 g PO DAILY 09/12/23 09/12/23 History release multivitamin with minerals-folic 1 tab PO DAILY 09/12/23 09/12/23 History acid 200 mcg chewable tablet (Multivitamin Gummies) Patient History Medical History (Updated 09/12/23 @ 09:57 by Ranulfo Gómez MD) IBD (inflammatory bowel disease) Crohn's disease Social History Smoking Status: Never smoker Tobacco Type: Cigarettes Preferred Language: Kyrgyz Feels Safe at Home: Yes Review of Systems Review of Systems: 14 point review of systems negative outs chastity of what is listed above in HPI Physical Exam Physical Exam: General: Alert and oriented, no acute distress HEENT: Normocephalic, mucous membranes moist Pulmonary: Nonlabored respirations Abdomen: Nondistended Extremities: Moves all 4 spontaneously Neuro: No gross deficits Skin: Warm, dry, no rashes noted Results & Data Vital Signs (Past 12 Hours) Vital Signs Temp Pulse Pulse Resp BP BP Pulse Ox 09/12/23 08:42 65 18 116/69 96 09/12/23 07:03 52 L 18 96/60 L 97 09/12/23 05:20 56 L 09/12/23 04:58 36.4 C L 73 16 126/77 100 O2 Del Method 09/12/23 08:42 09/12/23 07:03 09/12/23 05:20 09/12/23 04:58 Room Air PG Care Time/CCT Total # of Minutes Spent Total Time Spent with Patient: Total time spent is greater than 50% in coordination of care (as documented) at patient's floor/unit and/or counseling patient: Coding Level of Care Code 75377 IN/OBS CONSULT LVL 3,45M Diagnoses Right nephrolithiasis N20.0
[2023-09-12] MEDS ORDERED: ALUMINUM/MAGNESIUM SUSP 30 ML UDC PO PRN (09:59)
[2023-09-12] MEDS ORDERED: MAGNESIUM HYDROXIDE SUSP 30 ML UDC PO PRN (09:59)
[2023-09-12] MEDS ORDERED: ACETAMINOPHEN 325 MG TAB PO PRN (09:59)
[2023-09-12] MEDS ORDERED: KETOROLAC TROMETHAMINE 15 MG/ML VIAL IV PRN (10:03)
[2023-09-12] MEDS ORDERED: HYDROCODONE/ACETAMOPHEN 5/325MG TAB PO PRN (10:03)
--- NOTE | 2023-09-12 10:11 | History & Physical Report ---
Date of Service September 12, 2023 Assessment & Plan (1) Right nephrolithiasis: Plan Right hydronephrosis and hydroureter secondary to obstructive Stone Possible UTI Patient came in with right flank pain for 2 days, pain while passing urine for 2 days. Admitting labs and imagings reviewed Discussed with urology Started Rocephin 09/12, continue For cystoscopy and right ureteral placement today Pain management/nausea control Monitor replete electrolytes Other chronic medical conditions: As mentioned in HPI, continue with/resume home meds as and when able DVT prophylaxis: SCDs for now Full code History of Present Illness Chief Complaint: Right flank pain Primary Care Provider: Soheila Faustin MD 48-year-old lady with PMH of IBD, Crohn's disease, recurrent kidney stones, postoperative PE 2012 status post anticoagulation course presented to the ED with complaint of right lower back pain continuously since Wednesday night, progressively worsening. 8/10 in intensity, throbbing in nature, radiating to right buttocks. Patient reports she has been having on and off mild intensity pain for several months but this time it was continuous and more intense. Patient reports feeling hot and cold but denies measuring temperature, denies sore throat or flulike illness or chest pain or palpitation. Patient reports having pain during passing urine for the last 2 days which has increased progressively. Patient denies smoking, consumes alcohol once a month, denies use of recreational drugs Full code Medications reviewed with the patient. Plan of care discussed with the patient and her at bedside, they voiced understanding and were agreeable to the plan of care. Discussed with urology at bedside, plan for cystoscopy and right ureteral stent placement today. Allergies Allergy/AdvReac Type Severity Reaction Status Date / Time Sulfa (Sulfonamide Allergy Unknown HIVES Unverified 09/12/23 09:27 Antibiotics) azithromycin Allergy Unresponsiv Unverified 09/12/23 09:27 [From Zithromax Z-Darvin] e Home Medications Medication Instructions Recorded Confirmed Type ondansetron 4 mg disintegrating 4 mg PO Q6H PRN nausea and 06/12/20 09/12/23 Rx tablet vomiting #12 tabs fluticasone propionate 50 50 mcg intranasal DAILY PRN 09/12/23 09/12/23 History mcg/actuation nasal Allergy Symptoms spray,suspension mesalamine 1.2 gram tablet,delayed 1.2 g PO DAILY 09/12/23 09/12/23 History release multivitamin with minerals-folic 1 tab PO DAILY 09/12/23 09/12/23 History acid 200 mcg chewable tablet (Multivitamin Gummies) Past Med/Surg History Medical History (Updated 09/12/23 @ 09:57 by Ranulfo Gómez MD) IBD (inflammatory bowel disease) Crohn's disease Social History Smoking Status: Never smoker Tobacco Type: Cigarettes Preferred Language: Malay Feels Safe at Home: Yes Review of Systems Review of Systems: Negative otherwise mentioned in HPI. Physical Exam Physical Exam: GENERAL: Alert and oriented x3. NAD, on RA. HEENT: No pallor, no icterus. Pupils equal, round and reactive to light. Oral mucosa moist. NECK: No JVD, no neck masses. HEART: S1 and S2 heard. Regular rate and rhythm. No murmur, no gallop. RESPIRATORY SYSTEM: Normal AP diameter. No accessory muscle use. No wheezing, no crackles. ABDOMEN: Soft, bowel sounds present, nontender, no distention. CENTRAL NERVOUS SYSTEM: No facial droop. Speech is clear. Obeys simple commands. Moves extremities. EXTREMITIES: No edema, no erythema seen. No CVA angle tenderness Results & Data Results & Data Vital Signs (Past 12 Hours) Vital Signs Temp Pulse Pulse Resp BP BP Pulse Ox 09/12/23 08:42 65 18 116/69 96 09/12/23 07:03 52 L 18 96/60 L 97 09/12/23 05:20 56 L 09/12/23 04:58 36.4 C L 73 16 126/77 100 O2 Del Method 09/12/23 08:42 09/12/23 07:03 09/12/23 05:20 09/12/23 04:58 Room Air Code Status & VTE Plan VTE Prophylaxis Plan VTE Prophylaxis will be ordered: Yes
[2023-09-12] MEDS ORDERED: HYDROCODONE/ACETAMOPHEN 5/325MG TAB PO ONE (10:13)
[2023-09-12] MEDS ORDERED: LIDOCAINE 2% 2 ML VIAL/AMP(20MG/ML) INFIL ONE (10:30)
[2023-09-12] MEDS ORDERED: MIDAZOLAM HCL 1 MG/ML 2ML VIAL ONE (10:30)
[2023-09-12] MEDS ORDERED: ONDANSETRON INJ 2 MG/ML 2 ML VIAL ONE ×2 (10:30→10:54)
[2023-09-12] MEDS ORDERED: PROPOFOL IV EMULSION 10 MG/ML 20 ML VIAL IV ONE ×2 (10:30→11:01)
[2023-09-12] MEDS ORDERED: fentaNYL citrate PF 100 MCG/2 ML VIAL ONE (10:30)
[2023-09-12] MEDS ORDERED: DIATRIZOATE MEGLUMINE 30% 100ML VIAL INSTIL PRN (10:41)
[2023-09-12] MEDS ORDERED: FLUMAZENIL 0.1 MG/1 ML 10 ML VIAL IV PRN (10:47)
[2023-09-12] MEDS ORDERED: ATROPINE SULFATE 0.1 MG/ML 10ML SYR IV PRN (10:47)
[2023-09-12] MEDS ORDERED: fentaNYL citrate PF 100 MCG/2 ML VIAL IV PRN (10:47)
[2023-09-12] MEDS ORDERED: ePHEDrine sulfate 50 MG/ML AMP IV PRN (10:47)
[2023-09-12] MEDS ORDERED: PROMETHAZINE HCL 12.5 MG in SODIUM CHLORIDE 0.9% 50 ML IV PRN ×2 (10:47→20:02)
[2023-09-12] MEDS ORDERED: ONDANSETRON INJ 2 MG/ML 2 ML VIAL IV PRN (10:47)
[2023-09-12] MEDS ORDERED: NALOXONE HCL 0.4 MG/1 ML VIAL/CARP IV PRN (10:47)
--- NOTE | 2023-09-12 11:05 | Operative Report ---
PG Post Operative Report Pre & Post Diagnosis Right nephrolithiasis right nephrolithiasis Operation Date: 09/12/23 11:00 <No data on this case meets the specified criteria> I identified the patient and participated in the time-out.: Yes Procedure Cystoscopy, right retrograde pyelogram with radiographic interpretation, right ureteral stent placement Operation Date: 09/12/23 11:00 <No data on this case meets the specified criteria> Surgeon Ranulfo Gómez MD Assurance Analyst None Estimated Blood Loss 0 Findings See Below Moderate right hydronephrosis. Stent in appropriate position. Specimens None Drains 6 Sur[place]amese by 24 cm right ureteral stent Anesthesia Type General Complications none Indications 48-year-old female with a right obstructing ureteral calculus and several nonobstructing right-sided stones. Opted for stent placement. Description of Procedure After informed consent was obtained, the patient was transported operative suite. MAC anesthesia was induced. The patient was placed in dorsolithotomy position prepped and draped in a sterile fashion. They received preoperative ceftriaxone for antibiotic prophylaxis. An appropriate surgical timeout was performed. A 22 Surinamese rigid scope was inserted per urethra into the bladder. Holley cystoscopy revealed no stones or lesions. I turned my attention the right ureteral orifice and intubated this with a 5 Surinamese open-ended catheter. A right retrograde pyelogram was shot which showed moderate hydronephrosis. A sensor wire was advanced into the kidney and confirmed fluoroscopically. A 6 Sur[place]amese by 24 cm right ureteral stent was deployed with a good proximal coil in the renal pelvis and a good distal coil noted in the bladder, confirmed fluoroscopically and under direct visualization, respectively. The bladder was emptied and the scope was removed. This concluded the end of the case. All counts were correct at the end of the case. I was present, scrubbed, and actively participated for the entirety of the procedure. I attest to the content of the Intraoperative Record and any orders documented therein. Any exceptions are noted below.
--- NOTE | 2023-09-12 11:36 | Anesthesiology Progress Note ---
Date of Service September 12, 2023 Anesthesia Post Procedure Vital Signs Vital Signs: Temp Pulse Pulse Resp BP BP Pulse Ox 09/12/23 11:30 37.1 C 60 18 93/56 L 95 09/12/23 11:20 66 14 92/51 L 93 09/12/23 11:10 36.5 C 64 17 96/48 L 95 09/12/23 09:59 63 18 112/71 96 09/12/23 08:42 65 18 116/69 96 09/12/23 07:03 52 L 18 96/60 L 97 09/12/23 05:20 56 L 09/12/23 04:58 36.4 C L 73 16 126/77 100 O2 Del Method 09/12/23 11:30 Room Air 09/12/23 11:20 Room Air 09/12/23 11:10 Room Air 09/12/23 09:59 09/12/23 08:42 09/12/23 07:03 09/12/23 05:20 09/12/23 04:58 Room Air Pain Intensity Flank: Pain Intensity: 7 Transfer of Care Handoff Completed per policy Notes Mental Status: alert / awake / arousable Patient Amnestic to Procedure: Yes Nausea / Vomiting: adequately controlled Pain: adequately controlled Airway Patency, RR, SpO2: stable & adequate BP & HR: stable & adequate Hydration State: stable & adequate Anesthetic Complications: no major complications apparent
[2023-09-12] MEDS ORDERED: ONDANSETRON 4 MG OD TAB PO PRN (12:08)
[2023-09-12] MEDS: ADVANCED PROBIOTIC 1250 MG CAPSULE PO SCH (16:14)
--- NOTE | 2023-09-12 17:08 | Fluoroscopy Report ---
FL retrograde includes kub CLINICAL HISTORY: RT CYSTO STENT TECHNIQUE: 2 views were obtained with the C-arm in the OR with the above procedure. Total fluoroscopy time was 6.3 seconds. Radiation dose was 0.74 mGy. Comparison: CT abdomen pelvis 09/12/2023 FINDINGS/IMPRESSION: Intraoperative images were obtained of right retrograde pyelogram with stent dede cement. Please correlate with intraoperative fluoroscopy and operative report. ACT 112: Negative or not required by law. Electronically signed by: Keyon Whitney M.D. 09/12/2023 5:07 PM
[2023-09-12] MEDS ORDERED: LACTATED RINGER'S 1,000 ML IV ONE (23:19)
[2023-09-12] MEDS ORDERED: POTASSIUM CHLORIDE CRTAB 20 MEQ TABCR PO STA (23:32)
[2023-09-12 23:52] LABS: Magnesium 2.2 mg/dl (1.7-2.4)
[2023-09-13 00:07] LABS: Thyroid Stimulating Hormone 2.071 uIu/ml (0.300-4.500)
[2023-09-13] MEDS ORDERED: POTASSIUM CHLORIDE 20 MEQ in LACTATED RINGER'S 1,000 ML IV ONE (01:30)
[2023-09-13] MEDS ORDERED: cefTRIAXone SODIUM 2,000 MG in DEXTROSE 5 % MINI-B 50 ML IV SCH (06:00)
[2023-09-13 06:49] LABS: Hematocrit (blood only) 36.3 % (37.0-47.0); Mean Corpuscular Hemoglobin 29.5 pg (25.0-34.0); Mean Corpuscular Hgb Conc 33.1 g/dL (32.0-36.0); Mean Corpuscular Volume 89.2 fL (80.0-100.0); Mean Platelet Volume 9.1 fL (9.4-12.4); Platelet Count 286 K/uL (130-400); RDW Coefficient of Variation 12.2 % (11.5-14.5); RDW Standard Deviation 39.8 fL (36.4-46.3); Red Blood Count 4.07 M/uL (4.20-5.40); White Blood Count 8.05 K/ul (4.8-10.8)
[2023-09-13 07:03] LABS: BUN Creatinine Ratio 11.7 (10-20); Calcium 8.3 mg/dl (8.6-10.3); Creatinine Clr Calc Pharmacy 57.5 ml/min; Est GFR (African American) 83.7 ml/min; Est GFR (Non-African American) 72.2 ml/min; Phosphorus 3.5 mg/dl (2.5-4.9); Potassium 4.3 mmol/L (3.5-5.1)
[2023-09-13] MEDS: ADVANCED PROBIOTIC 1250 MG CAPSULE PO SCH (08:08)
[2023-09-13] MEDS ORDERED: MESALAMINE 400 MG CAPDR PO SCH (09:00)
[2023-09-13] MEDS ORDERED: CEROVITE ADV FORMULA TAB PO SCH (09:00)
--- NOTE | 2023-09-13 09:09 | Urology Progress Note ---
Date of Service September 13, 2023 Assessment & Plan (1) Right nephrolithiasis: Plan 48-year-old female with a right distal ureteral calculus as well as nonobstructing right renal stones. - Pt POD#1 s/p cystoscopy, retrograde pyelogram and right ureteral stent placement - Doing well, progressing as expected - Afebrile, lab work reviewed - creatinine 0.94, WBC 8.05 - Final urine culture with 3 types of organisms present, all high counts of probable mixed skin reginald - Tolerating right ureteral stent with minimal bother - Okay to d/c from perspective when medically stable - Recommend d/c with course of Tamsulosin, prn Pyridium and prn Oxybutynin for stent management - Expected clinical course reviewed, all questions answered - Will arrange outpatient follow-up with our service - will sign off Admission and Anticipated Discharge Date Admission Date: September 12, 2023 Subjective Patient seen and examined at bedside this morning, chart reviewed No acute issues overnight Reports mild right flank discomfort Notes some urinary frequency/urgency No dysuria; hematuria is clearing post procedure No fever or chills No additional concerns today Review of Systems Constitutional: as per Subjective / HPI Gastrointestinal: as per Subjective / HPI Genitourinary: as per Subjective / HPI Physical Exam Physical Exam: General: well-appearing, no acute distress HEENT: Normocephalic, mucous membranes moist Pulmonary: Nonlabored respirations Abdomen: Nondistended Extremities: Moves all 4 spontaneously Neuro: No gross deficits Psych: alert and oriented, normal mood Skin: Warm, dry, no rashes noted Results & Data Vital Signs (Past 12 Hours) Vital Signs Temp Pulse Resp BP Pulse Ox O2 Del Method 09/13/23 07:20 36.8 C 50 L 16 98/58 L 97 Room Air 09/13/23 02:02 36.6 C 44 L 16 88/55 L 96 Room Air 09/12/23 23:14 36.8 C 43 L 16 81/48 L 98 Room Air PG Care Time/CCT Total # of Minutes Spent Total Time Spent with Patient: Total time spent is greater than 50% in coordination of care (as documented) at patient's floor/unit and/or counseling patient: Coding Level of Care Code 56785 SUB INP/OBS CARE 3/50MIN Diagnoses Right nephrolithiasis N20.0
--- NOTE | 2023-09-13 11:44 | Discharge Summary ---
Discharge Summary Date of Service September 13, 2023 Notes For Next Care Provider Needs followup with [facility] (Dr. Ranulfo Gómez) for definitive stone management. Medication Changes From Visit Fluconazole 150 mg tablet as needed yeast infection Oxybutynin 5 mg p.o. twice daily as needed bladder spasms Pyridium 100 mg p.o. every 8 hours as needed bladder spasms Tamsulosin 0.4 mg p.o. nightly Admission HPI Per Admitting Provider 48-year-old lady with PMH of IBD, Crohn's disease, recurrent kidney stones, postoperative PE 2013 status post anticoagulation course presented to the ED with complaint of right lower back pain continuously since Wednesday night, progressively worsening. 8/10 in intensity, throbbing in nature, radiating to right buttocks. Patient reports she has been having on and off mild intensity pain for several months but this time it was continuous and more intense. Patient reports feeling hot and cold but denies measuring temperature, denies sore throat or flulike illness or chest pain or palpitation. Patient reports having pain during passing urine for the last 2 days which has increased progressively. Patient denies smoking, consumes alcohol once a month, denies use of recreational drugs Full code Medications reviewed with the patient. Plan of care discussed with the patient and her at bedside, they voiced understanding and were agreeable to the plan of care. Discussed with urology at bedside, plan for cystoscopy and right ureteral stent placement today. Principal Dx & Hospital Course #1 = Principal Diagnosis (1) Right nephrolithiasis: Plan Patient is a 48-year-old female who presented to the ER with right lower back pain that was continuous with progressive worsening. She was diagnosed with right hydronephrosis and hydroureter secondary to obstructive stone with a possible UTI. She was started on Rocephin and urology was consulted. On 09/12/2023 she underwent a cystoscopy with right retrograde pyelogram with right ureteral stent placement. This was performed by Dr. Ranulfo Gómez. Moderate hydronephrosis was confirmed. She remained in the hospital overnight and was doing well from a symptom standpoint at time of discharge. She was hemodynamically stable and afebrile and tolerating p.o. She was mentating in a line at baseline. Final urine culture revealed 3 types of organisms present all consistent with probable mixed skin reginald so UTI was ruled out. She was discharged with a course of tamsulosin as needed Pyridium and as needed oxybutynin for stent management without antibiotics. She will follow-up with urology for definitive stone management as outpatient. Updated Medication List Medication Instructions Recorded Confirmed Type ondansetron 4 mg disintegrating 4 mg PO Q6H PRN nausea and 06/12/20 09/16/23 Rx tablet vomiting #12 tabs fluticasone propionate 50 50 mcg intranasal DAILY PRN 09/12/23 09/16/23 History mcg/actuation nasal Allergy Symptoms spray,suspension mesalamine 1.2 gram tablet,delayed 1.2 g PO DAILY 09/12/23 09/16/23 History release multivitamin with minerals-folic 1 tab PO DAILY 09/12/23 09/16/23 History acid 200 mcg chewable tablet (Multivitamin Gummies) fluconazole 150 mg tablet 150 mg PO DAILY #1 tab 09/13/23 09/16/23 Rx oxybutynin chloride 5 mg tablet 5 mg PO BID PRN bladder spasms #30 09/13/23 09/16/23 Rx tabs phenazopyridine 100 mg tablet 100 mg PO Q8H PRN flank pain or 09/13/23 09/16/23 Rx (Pyridium) bladder spasms #30 tabs tamsulosin 0.4 mg capsule 0.4 mg PO HS #30 caps 09/13/23 09/16/23 Rx Hospital Stay Data Consultations 09/12/23 08:51 ED Decision to Admit Stat 09/12/23 09:59 Consult Urology Routine Procedures Performed Operation Date: 09/12/23 11:00 Actual Procedures p Cystoscopy, Right Retrograde Pyelogram, and Right Ureteral Stent Insertion - Ranulfo Gómez MD Diagnostic Imagining Performed 09/12/23 05:12 CT Abd and Pelvis [CT abd pelvis IV con only] Stat 09/12/23 10:00 FL retrograde includes kub Routine Pending Results Patient Have Any Pending Studies at Discharge: No Discharge Instructions Given to Patient (Per Discharging Provider) Please take all medications as instructed on discharge list below. You underwent a cystoscopy with placement of right ureteral stent. Please continue taking once daily Flomax and followup with [facility] at the number above for stent removal or exchange in two weeks. If you get bladder spams or flank pain please take the Pyridium (first line) as needed. If that is not successful, you may also use the Ditropan as an alternative. The Ditropan may cause dry mouth and urinary retention as commonly known side effects. No evidence of a urinary tract infection was found, therefore, you are not being continued on antibiotics. As you did have some while in the hospital and report being prone to yeast infections, you are being provided with Diflucan to take only if yeast infection symptoms develop. One dose is all that is needed for this. It is recommended that you follow-up with your primary care provider within one week of discharge from the hospital to ensure you are doing well after returning home. It was a pleasure taking care of you! Please call if you have any questions or problems. You can reach a [facility] hospitalist on duty at [facility] 24 hours a day by calling [phone]. Take care of yourself. Rahel Medina, DO [facility] Hospitalist Total Time Total Time Spent Total Time Spent (In Minutes): 60
--- NOTE | 2023-09-13 13:04 | Electrocardiogram Report ---
Test Reason : Blood Pressure : / mmHG Vent. Rate : 044 BPM Atrial Rate : 044 BPM P-R Int : 126 ms QRS Dur : 072 ms QT Int : 462 ms P-R-T Axes : 028 043 034 degrees QTc Int : 395 ms Marked sinus bradycardia T wave abnormality, consider anterior ischemia Abnormal ECG When compared with ECG of 09-JUN-2013 12:54, Nonspecific T wave abnormality has replaced inverted T waves in Inferior leads Confirmed by Gideon Abad ([id number]) on 09/13/2023 1:03:58 PM Referred By: REFERRED SELF Confirmed By:Gideon Abad
--- OUTSIDE RECORDS SUMMARY | 2023-09-17 12:23 | External Medical Summary | Summary of Care ---
Author Name Unknown Organization [facility] Address [address] [place] [address] Phone [phone] Care Team Providers Care Pad Assembler Name Role Phone Soheila Faustin MD Primary Care Provider Reason for Visit * Reason Comments Follow Up Yearly, GERD Encounter Details Date Type Department Care Team Description 04/29/2023 Telemedicine [facility]astroenterology, [facility] [address] [facility] [facility] [place] [id number] Amina Staples CRNP [address] [facility] [place] [id number] IBD (inflammatory bowel disease)* Allergies Active Allergy Reactions Severity Noted Date Comments Ciprofloxacin 07/14/2017 h/o knee pain Sulfa Antibiotics Hives Medium 12/14/2011 Azithromycin 08/06/2017 Legs swelled/tender day of starting antibiotics, unsure if this was related to antibiotics or not documented as of this encounter (statuses as of 04/29/2023) Medications Medication Sig Dispensed Refills Start Date End Date Status Multiple Vitamins-Minerals (HM MULTIVITAMIN ADULT GUMMY) CHEW Take by mouth. 0 Act chester diphenhydrAMINE (BENADRYL) 25 MG Capsule Take 2 tablets every 4-6 hrs. as needed for itching or hives. 50 Cap 1 03/16/2017 Active Mag Aspart-Potassium Aspart (POTASSIUM & MAGNESIUM ASPARTAT) 250-250 MG CAPS Take by mouth. 0 05/09/2019 Activ e cholecalciferol, VIT D3, (VITAMIN D3) 1000 UNITS Tablet Take 1 Tablet by mouth in the morning. 0 Active Lysine 500 MG TABS Take by mouth. 0 Ac tive Iron 325 (65 Fe) MG Oral Tablet Take by mouth . 0 Active Mesalamine 1.2 GM Oral Tablet Delayed Release (Lialda) Take by mouth 1 Tablet in the morning. 90 Tablet 3 06/08/2022 Active B Complex-C Oral Tablet Take 1 Tablet by mouth in the morning. 0 Active Zinc 50 MG Oral Capsule Take 1 Capsule by mouth in the morning. 0 Active Fluticasone Propionate 50 MCG/ACT Nasal Suspension (Flonase) Administer 2 Sprays into each nostril in the morning. 3 Each 3 01/20/2023 Active Amoxicillin-Pot Clavulanate 875-125 MG Oral Tablet (Augmentin) TAKE 1 TABLET BY MOUTH TWO TIMES DAILY FOR 7 DAYS - 10 DAYS 0 04/26/2023 Active documented as of this encounter (statuses as of 04/29/2023) Active Problems Problem Noted Date Inflammatory bowel diseases (IBD) 2022 Allergic rhinitis due to dust mite 03/16 Abnormal electrocardiogram 04/06/2014 Iron deficiency anemia 07/03/2013 History of pulmonary embolism 06/06/2013 Calcium oxalate renal calculi 04/25/2013 Bronchospasm, exercise-induced 2 Esophageal reflux 05/06/2010 Dysphagia, pharyngoesophageal phase 04/09 Temporomandibular joint disorder 010 VERTIGO,VASOMAOTOR INSTABILITY 0 documented as of this encounter (statuses as of 04/29/2023) Resolved Problems Problem Noted Date Resolved Date 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 0 06/06/2013 07/22/2017 Overview: ICD-10 update of inactive term Anticoagulation management encounter 06/06/2013 07/22/2017 Allergic rhinitis 07/13/2012 03/16/2017 CHR OTITIS EXTERNA, W/CERUMENOSIS 05/06/2010 10/14/2011 Allergic rhinitis 04/28/2010 05/16/2012 Myalgia and myositis 04/28/2010 07/22/2017 documented as of this encounter (statuses as of 04/29/2023) Immunizations Name Administration Dates Next Due COVID-19 mRNA, LNP-s, No Pre serve, 2-Dose Series (Pfizer) 08/13/2021,01/04/2021,12/14/2020 Covid-19, Mrna, Lnp-s, Pf, B ivalent, 30 Mcg, IM, 12 yrs and above (Pfizer) 07/28/2022 Seasonal Influenza, Quadriva lent, No Preserve, 6 Mons & Above, IM 11/30/2022 TD, Preservative Free 07/10/2021 TDAP (age 11 and older)(Adacel) 11/27/2009 documented as of this encounter Social History Tobacco Use Types Packs/Day Years Used Date Smoking Tobacco: Never Smokeless Tobacco: Never Comments:no passive smoke Alcohol Use Standard Drinks/Week Comments Yes 0 (1 standard drink = 0.6 oz pur e alcohol) social Alcohol Habits Answer Date Recorded How often do you have a drink containing alcohol ? 2-4 times a month 06/02/2019 How many drinks containing a lcohol do you have on a typical day when you are drinking? 1 or 2 06/02/2019 How often do you have six or more drinks on one occasion? Never 06/02/2019 Food Insecurity Answer Date Recorded Within the past 12 months, y ou worried that your food would run out before you got money to buy more. Never true 07/10/2021 Within the past 12 months, t he food you bought just didn't last and you didn't have money to get more. Never true 07/10/2021 Sex Assigned at Date Recorded Female 05/09/2019 11:04 AM EDT Job Start Date Occupation Industry Not on file Not on file Not on file documented as of this encounter Progress Notes * [facility] Agustin - 04/29/2023 2:30 PM EDT DATE OF SERVICE: 04/29/2023 REFERRING PHYSICIAN: Soheila Faustin MD Patient location: HOME. I was in a hospital or clinic location. After connecting through televideo,patient was verified with two unique identifiers. Patient (or authorized legal public relations representative) was then informed that this was a Telemedicine visit and being conducted confidentially over secure lines. Methods to assure confidentiality were taken. Patient acknowledged consent and understanding of pr ivacy and security of the Telemedicine visit. The patient agreed to participate. CC: Follow up Telemedicine Visit 04/29/2023: From GI standpoint doing okay. Did get some self- limited GI upset post-prandially about 3/4 months. Resolved without intervention. Lasted a few weeks. Had heartburn around this time as well. Remains on Lialda. Overall doing well. Bowels overall improved. Some constipati on from time to time. No diarrhea. No abd pain. No black or bloody stools. Tolerating PO intake. Nonausea, vomiting. No GERD currently. No fever, chills, CP, SOB. A lot of stress- some family healthissues. Some dental issues. Office Visit 02/05/2022 : Feeling well on Mesalamine. Has had some constipation in the last few months. No black or bloody stools. No straining. No abd pain. No nausea, vomiting. Tolerating PO intake.Sometimes gets cramping after PO. Resolves with time. No fever, chills, CP, SOB. Lost some weight in the summer, now regained and stable. MRE 2019: No gross inflammatory changes appreciated in the abdomen or pelvis. No bowel obstruction or apparent stricture appreciated. Trace free fluid in pelvis, barely perceptible. Colonoscopy 2019:The examined portion of the ileum was normal.Normal mucosa in the sigmoid colon,in the descendingcolon, in the transverse colon, in the ascending colon andin the cecum. Biopsied. Unclear if this patient hasunderlying IBD. Congested, erythematous and granular mucosa in the r ectum.Biopsied. The distal rectum and anal verge are normal onretroflexion view. [id number]: Non-thrombosed external hemorrhoids found on digitalrectal exam. The examined portion of the ileum was normal. Localized mild inflammation was found in the descending colon. Biopsied. Fluid aspiration performed. This may represent medication related changes. Internal hemorrhoids. 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 Allergies Mother chronic rhinitis Cancer Grandfather (Maternal) colon cancer Past Surgical History: Procedure Laterality Date COLONOSCOPY, DIAGNOSTIC (RECTUM) 10/21/2017 inflammatory changes on bx/COLONOSCOPY FLEXIBLE PROXIMAL DIAGNOSTIC performed by Yasir Simms DO at [facility] COLONOSCOPY, DIAGNOSTIC (RECTUM) 09/27/2017 COLONOSCOPY FLEXIBLE PROXIMAL DIAGNOSTIC performed by Yasir Simms DO at ENDOSCOPY [facility] COLONOSCOPY, DIAGNOSTIC (RECTUM) 08/17/2019 inflammatory changes on bx, repeat 3 yrs/COLONOSCOPY FLEXIBLE PROXIMAL DIAGNOSTIC performed by Yasir Simms DO at ENDOSCOPY [facility] CYSTOSCOPY/INSERTION OF STENT 05/22/2013 CYSTOURETHROSCOPY WITH INSERTION URETERAL STENT performed by Ida Carter MD at OR [facility] CYSTOURETRO W/STONE REMOVE 05/22/2013 CYSTOURETHROSCOPY URETROSCOPY WITH STONE REMOVAL performed by Ida Carter MD at OR [facility] FOREARM/WRIST SURGERY NEC 01/2008 wrist fracture Social History Tobacco Use Smoking status: Never Smokeless tobacco: Never Tobacco comments: no passive smoke Vaping Use Vaping Use: Never used Substance Use Topics Alcohol use: Yes Comment: social Drug use: No Review of patient's allergies indicates: Allergen Reactions Sulfa Antibiotics Hives Ciprofloxacin h/o knee pain Zithromax [Azithromycin] Legs swelled/tender day of starting antibiotics, unsure if this was related to antibiotics or not Current Outpatient Medications Medication Sig Dispense Refill Multiple Vitamins-Minerals (HM MULTIVITAMIN ADULT GUMMY) CHEW Take by mouth. diphenhydrAMINE (BENADRYL) 25 MG Capsule Take 2 tablets every 4-6 hrs. as needed for itching orhives. 50 Cap 1 Mesalamine 1.2 GM Oral Tablet Delayed Release (Lialda) Take by mouth 1 Tablet in the morning. 90 Tablet 3 Fluticasone Propionate 50 MCG/ACT Nasal Suspension (Flonase) Administer 2 Sprays into each nostril in the morning. 3 Each 3 Amoxicillin-Pot Clavulanate 875-125 MG Oral Tablet (Augmentin) TAKE 1 TABLET BY MOUTH TWO TIMESDAILY FOR 7 DAYS - 10 DAYS Mag Aspart-Potassium Aspart (POTASSIUM & MAGNESIUM ASPARTAT) 250-250 MG CAPS Take by mouth.(Patient not taking: Reported on 04/29/2023) cholecalciferol, VIT D3, (VITAMIN D3) 1000 UNITS Tablet Take 1 Tablet by mouth in the morning. (Patient not taking: Reported on 04/29/2023) Lysine 500 MG TABS Take by mouth. (Patient not taking: Reported on 04/29/2023) Iron 325 (65 Fe) MG Oral Tablet Take by mouth . (Patient not taking: Reported on 04/29/2023) B Complex-C Oral Tablet Take 1 Tablet by mouth in the morning. (Patient not taking: Reported on04/29/2023) Zinc 50 MG Oral Capsule Take 1 Capsule by mouth in the morning. (Patient not taking: Reported on 04/29/2023) No current facility-administered medications for this visit. Facility-Administered Medications Ordered in Other Visits Medication Dose Route Frequency Provider Last Rate Last Admin ketorolac (TORADOL) 30 MG/ML inj Once PRN Delia Brink, SRNA 30 mg at 05/22/13 1331 ondansetron (ZOFRAN) inj Once PRN Delia Brink, SRNA 4 mg at 08/17/19 1014 glycopyrrolate (ROBINUL) inj Once PRN Delia Brink, SRNA 0.4 mg at 05/22/13 1321 neostigmine methylsulfate (PROSTIGMIN) 1 MG/ML inj Once PRN Delia Brink, SRNA 2 mg at 05/22/13 1321 REVIEW OF SYSTEMS: All other findings negative except as noted in HPI. EXAM: GENERAL: Appears stated age, well developed, well nourished in no acute distress. SKIN: No apparent rashes, jaundice, ecchymosis, oral lesions. HEENT: Neck supple. Normocephalic, sclera non-icteric LUNGS: No respiratory distress or apparent accessory muscles used. Normal chest excursion. No audible wheezing NEURO: No lateralizing findings. Cranial nerves IV, V, , VII, XI and XII in tact. Motor grossly normal. PSYCHOSOCIAL: Appropriate affect, normal memory recall, DIAGNOSTIC TEST: Cbc Comprehensive metabolic panel Crp (inflammatory marker) Erythrocyte sedimentation rate (esr) ASSESSMENT AND PLAN: 48year old female withnon specific IBD seen on last colonoscopy onApriso,w/ intermittent episodes of rectal bleeding. Feeling better on Rowasa therapy therapy every otherday - Continue Apriso 1.5g daily - Continue rowasa taper -enema qHSfor two weeks then ever other night for 4 weeks with a goal of use for about 1-2 weeks - If stools get hard, may try Miralax 17g daily or Colace 100mg BID. - Colonoscopy recall 2022 - Encouraged to call insurance to check if cheaper 5 ASA alternative is available - ED for emergencies - Please call with any questions or concerns I spent a total of 30 minutes on the date of service in review of patient's record, and previously obtained information in person and appropriate medical visit, discussion and education of plan, withpatient and/or caregiver, placing orders for tests/referral/procedures as medically necessary and documentation of pertinent clinical information in patient's medical records for their visit today. RETURN TO CLINIC: 9 months [facility] Jhaveri 04/29/2023 1:10 PM documented in this encounter Nursing Notes * Jasmin Mccray LPN - 04/29/2023 12:09 PM EDT Patient identified by name and date of Chief Complaint Patient presents with Follow Up Yearly, GERD Pt will log in early if we need her to, just call to tell her when Pt identified by name and date of . Verified pt not currently driving. Verified pt currently in the state of [place]. Chart updated with patient after review of social history and allergies. Med reconciliation completed. Pt verbalizes that they have received their telehealth link via email and planto utilize an electronic device/set up with video capability and has appropriate/updated software for video visit. Pt walked through the steps of connecting for video visit and verbalizes an understanding of how to enter the virtual waiting room. Offers no further questions and will await appointment time for provider connection. Will contact our office should they have any issues or questions inregards to their visit. documented in this encounter Plan of Treatment Upcoming Encounters Date Type Specialty Care Team Description 06/14/2023 Office Visit Internal [facility] [address] [facility] [address] [facility]2023 Hospital Encounter Endoscopy Erum Hooks, DO [address] [place] [address] 09/20/2023 Surgery Endoscopy Erum Hooks, DO [address] [place] [address] COLONOSCOPY FLEXIBLE PROXIMAL DIAGNOSTIC Scheduled Orders Name Type Priority Associated Diagnoses Orde r Schedule CBC Lab Routine IBD (inflammatory bowel disease) Expected: 04/29/2023, Expires: 04/29/2024 COMPREHENSIVE METABOLIC PANEL Lab Routine IBD (inflammatory bowel disease) Expected: 04/29/2023, Expires: 04/29/2024 CRP (INFLAMMATORY MARKER) Lab Routine IBD (inflammatory bowel disease) Expected: 04/29/2023, Expires: 04/29/2024 ERYTHROCYTE SEDIMENTATION RATE (ESR) Lab Routine IBD (inflammatory bowel disease) Expected: 04/29/2023, Expires: 04/29/2024 Scheduled Procedures Name Priority Associated Diagnoses Date/Ti me COLONOSCOPY FLEXIBLE PROXIMAL DIAGNOSTIC Crohn's disease (HCC) 09/20/2023 11:45 AM EST Health Maintenance Due Date Last Done Comments Hepatitis B (1 of 3 - 3-dose series) 1976 Pneumococcal Vaccine: Pediatrics (0 to 5 Years) and At-Risk Patients (6 to 64 Years) (1 - PCV) 1982 Hepatitis C Screening 1994 Lipid Panel 04/10/2019 04/10/2014, 05/14/2011 COLONOSCOPY-EVERY 3 YRS AGES 18-100 08/17/2022 08/17/2019, 08/17/2019, 10/21/2017, Additional history exists Depression Screening, Annual for Pts 12 and Over 11/30/2023 11/30/2022 Mammogram 12/16/2023 12/16/2022, 06/08, 06/08/2019 Pap Smear 06/02/2024 06/02/2019, 03/09, 04/01/2012, Additional history exists DTaP,Tdap,and Td Vaccines (3 - Td or Tdap) 07/10/2031 07/10/2021, 11/27/2009 COVID-19 Vaccine Completed 07/28/2022, 04/2021, 01/04/2021, Additional history exists Influenza Vaccine (FLU shot) Completed 11/30/2022 GARDASIL-HPV IMMUNIZATION SERIES Aged Out No longer eligible based on patient's age to complete this topic MENINGOCOCCAL (MENACTRA/MENVEO) Aged Out No longer eligible based on patient's age to complete this topic documented as of this encounter Medical Devices Not on filedocumented as of this encounter Visit Diagnoses Diagnosis IBD (inflammatory bowel disease)- Primary Other and unspecified noninfectious gastroenteritis and colitis Crohn's disease (HCC) Regional enteritis of unspecified site documented in this encounter Advance Directives Latest Code Status on File Code Status Date Activated Date Inactivated Comments Full Code 05/22/2013 10:31 AM 05/22/2013 10:20 PM Thi s order reflects the patients wishes and were consensually agreed upon. Question Answer Comments Discussion of Advance Directives occurred with: Not Discussed Does the patient have a Living Will? No Does the patient have Health Care Power of Resaw Tailer? No Care Teams Pad Assembler Relationship Specialty Start Date End Date Soheila Faustin MD [address] [place] [id number] PCP - General Internal Medicine 11/30/22 documented as of this encounter
--- OUTSIDE RECORDS SUMMARY | 2023-09-17 12:23 | External Medical Summary ---
Author Name Unknown Address Unknown Organization [id number]:[facility] [place] - [address] [place] [address] Laboratory Report Ordering Provider Test Date Status YONAS WILLINGHAM 07/02/2023 07:21:35 Final Observation Date Value Abnormality Reference (Units ) Status CRP, low-sensitivity 07/02/2023 07:21:35 <3 <=5 (mg/L) Final Performing Location [facility] - [address] [place] [address]
--- OUTSIDE RECORDS SUMMARY | 2023-09-17 12:23 | External Medical Summary ---
Author Name Unknown Address Unknown Organization [id number]:[facility]ATORY [facility] [place] [address] [place] [address] Laboratory Report Ordering Provider Test Date Status VALENTE GALVAN 07/02/2023 07:21:35 Final Deficient: <20 ng/mL
Ins ufficient: 20-29 ng/mL
Recommended/Optimum:30-50 ng/mL

Vitamin D intoxication is rare. If suspicious of Vitamin D toxicity, evaluation of serum Calcium and PTH is recommended. Observation Date Value Abnormality Reference (Units ) Status 25-OH Vitamin D total 07/02/2023 07:21:35 23 >19 (ng/mL) Final Performing Location LABORATORY C - [address] [place] [address]
--- OUTSIDE RECORDS SUMMARY | 2023-09-17 12:23 | External Medical Summary ---
Author Name Unknown Address Unknown Organization [id number]:[place] [place] [address] [place] [address] Laboratory Report Ordering Provider Test Date Status VALENTE GALVAN 07/02/2023 07:21:35 Final Observation Date Value Abnormality Reference (Units ) Status Erythrocyte sedimentation rate by Photometric method 07/02/2023 07:21:35 7 <20 (mm/hour) Final Performing Location [facility] [facility] [place] [address] [place] [address]
--- OUTSIDE RECORDS SUMMARY | 2023-09-17 12:23 | External Medical Summary ---
Author Name Unknown Address Unknown Organization [id number]:LABORATORY [facility] – [place] - [address] [facility] [address] Laboratory Report Ordering Provider Test Date Status CONSTANCE GALVANALI 07/02/2023 07:21:35 Final Observation Date Value Abnormality Reference (Units ) Status Triglyceride 07/02/2023 07:21:35 61 <=174 ( mg/dL) Final Triglyceride Reference Range s (mg/dL):
<150 Acceptable
150-174 Borderline high
175-499 High
>=500 Very high Cholesterol 07/02/2023 07:21:35 226 Above high normal <200 (mg/dL) Final Total Cholesterol Reference Ranges (mg/dL):
<200 Desirable
200-239 Borderline high
>=240 High HDL 07/02/2023 07:21:35 91 >49 (mg/dL ) Final HDL Cholesterol Reference Ra nges (mg/dL):
>=60 High (Desirable)
<50 Low (Undesirable) For Females
<40 Low (Undesirable) For Males NON-HDL CHOLESTEROL 07/02/2023 07:21:35 135 <=159 (mg/dL) Final Non-HDL Cholesterol Referenc e Range (mg/dL):
<100 Target level for high risk ASCVD patient
<130 Optimal for general population
130-159 Near optimal for general population
160-189 Borderline High
190-219 High
>=220 Very High LDL, (calculated) 07/02/2023 07:21:35 123 <= 129 (mg/dL) Final LDL Cholesterol Reference Ra nges (mg/dL):
<70 Target level for high risk ASCVD patient
<100 Optimal for general population
100-129 Near optimal for general population
130-159 Borderline high
160-189 High
>=190 Very high Performing Location LABORATORY [facility] [place] - [address] [facility] [address]
--- OUTSIDE RECORDS SUMMARY | 2023-09-17 12:23 | External Medical Summary ---
Author Name Unknown Address Unknown Organization K01:LABORATORY [facility] - [address] [place] [address] Laboratory Report Ordering Provider Test Date Status VALENTE GALVAN 07/02/2023 07:21:35 Final Observation Date Value Abnormality Reference (Units ) Status Hep C Ab 07/02/2023 07:21:35 Negative Negative Final Further HCV quantitative sterling ting not performed per protocol. Performing Location LABORATORY [facility] - [address] [place] [address]
--- OUTSIDE RECORDS SUMMARY | 2023-09-17 12:23 | External Medical Summary | Summary of Care ---
Author Name Unknown Organization [facility] Address [address] [place] [address] Phone [phone] Care Team Providers Care Energy Project Engineer Name Role Phone Soheila Faustin MD Primary Care Provider [phone] Reason for Visit * Reason Comments Outpatient Testing Encounter Details Date Type Department Care Team Description 07/02/2023 Laboratory [facility] [place] [address] [place] [address] [facility] [address] [place] [address] Screening for cardiovascular condition; Routine medical exam; Inflammatory bowel diseases (IBD); IBD (inflammatory bowel disease); Need for hepatitis B vaccination; Encounter for HCV screening test for low risk patient Allergies Active Allergy Reactions Severity Noted Date Comments Ciprofloxacin 07/14/2017 h/o knee pain Sulfa Antibiotics Hives Medium 12/14/2011 Azithromycin 08/06/2017 Legs swelled/tender day of starting antibiotics, unsure if this was related to antibiotics or not documented as of this encounter (statuses as of 07/02/2023) Medications Medication Sig Dispensed Refills Start Date [...] (65 Fe) MG Oral Tablet Take by mouth. 0 Active B Complex-C Oral Tablet Take 1 Tablet by mouth in the morning. 0 Active Zinc 50 MG Oral Capsule Take 1 Capsule by mouth in the morning. 0 Active Fluticasone Propionate 50 MCG/ACT Nasal Suspension (Flonase) Administer 2 Sprays into each nostril in the morning. 3 Each 3 01/20/2023 Active Mesalamine 1.2 GM Oral Tablet Delayed Release (Lialda) TAKE 1 TABLET BY MOUTH EVERY DAY IN THE MORNING 90 Tablet 0 06/07/2023 Active documented as of this encounter (statuses as of 07/02/2023) Active Problems Problem Noted Date Inflammatory bowel diseases (IBD) 2022 Allergic rhinitis due to dust mite 03/16 Iron deficiency anemia 07/03/2013 History of pulmonary embolism 06/06/2013 Calcium oxalate renal calculi 04/25/2013 Bronchospasm, exercise-induced 2 Esophageal reflux 05/06/2010 Dysphagia, pharyngoesophageal phase 04/09 Temporomandibular joint disorder 010 VERTIGO,VASOMAOTOR INSTABILITY 0 documented as of this encounter (statuses as of 07/02/2023) Resolved Problems Problem Noted Date Resolved Date Dyspareunia in female 06/14/2023 06/14/2023 Vaginal dryness, menopausal 06/14/2023 08/0 05/2023 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 anticoagulant therapy 0 06/06/2013 07/22/2017 Overview: ICD-10 update of inactive term Anticoagulation management encounter 06/06/2013 07/22/2017 Allergic rhinitis 07/13/2012 03/16/2017 CHR OTITIS EXTERNA, W/CERUMENOSIS 05/06/2010 10/14/2011 Allergic rhinitis 04/28/2010 05/16/2012 Myalgia and myositis 04/28/2010 07/22/2017 documented as of this encounter (statuses as of 07/02/2023) Immunizations Name Administration Dates Next Due COVID-19 mRNA, LNP-s, No Pre serve, 2-Dose Series (Pfizer) 08/13/2021,01/04/2021,12/14/2020 Covid-19, Mrna, Lnp-s, Pf, B ivalent, 30 Mcg, IM, 12 yrs and above (Pfizer) 07/28/2022 Seasonal Influenza, PF, 6 mo ns & Above, IM , (Flulaval) 11/30/2022 TD, Preservative Free 07/10/2021 TDAP (age [...] on file documented as of this encounter Plan of Treatment Upcoming Encounters Date Type Specialty Care Team Description 09/20/2023 Hospital Encounter Endoscopy Erum Hooks, DO [address] [place] [address] 09/20/2023 Surgery Endoscopy Erum Hooks, DO [address] [place] [address] COLONOSCOPY FLEXIBLE PROXIMAL DIAGNOSTIC 10/28/2023 Telemedicine Gastroenterology Amina Staples CRNP [address] [place] [address] 12/16/2023 Office Visit Internal Medicine Soheila Faustin MD [address] [facility] [address] Pending Results Name Type Priority Associated Diagnoses Date /Time LIPID PANEL WITH DIRECT LDL IF TG IS HIGH Lab Routine Screening for cardiovascular condition 07/02/2023 7:21 AM EDT COMPREHENSIVE METABOLIC PANEL Lab Routine Inflammatory bowel diseases (IBD) 07/02/2023 7:21 AM EDT ERYTHROCYTE SEDIMENTATION RATE (ESR) Lab Routine Inflammatory bowel diseases (IBD) 07/02/2023 7:21 AM EDT 25-HYDROXY VITAMIN D Lab Routine Inflammatory bowel diseases (IBD) 07/02/2023 7:21 AM EDT CRP (INFLAMMATORY MARKER) Lab Routine IBD (inflammatory bowel disease) 07/02/2023 7:21 AM EDT HEPATITIS B SURFACE ANTIBODY Lab Routine Need for hepatitis B vaccination 07/02/2023 7:21 AM EDT HEPATITIS C ANTIBODY SCREEN WITH PROGRESSION TO HEPATITIS C RNA QUANTITATIVE Lab Routine Encounter for HCV screening test for low risk patient 07/02/2023 7:21 AM EDT HEPATITIS C ANTIBODY Lab Routine Encounter for HCV screening test for low risk patient 07/02/2023 7:21 AM EDT HEPATITIS C RNA ADD ON Lab Routine Encounter for HCV screening test for low risk patient 07/02/2023 7:21 AM EDT Scheduled Procedures Name Priority Associated Diagnoses Date/Ti me COLONOSCOPY FLEXIBLE PROXIMAL DIAGNOSTIC Crohn's disease (HCC) 09/20/2023 11:45 AM EST Health Maintenance Due Date Last Done Comments Hepatitis B (1 of 3 - 3-dose series) 1976 Pneumococcal Vaccine: Pediatrics (0 to 5 Years) and At-Risk Patients (6 to 64 Years) (1 - PCV) 1982 Hepatitis C Screening 1994 HPV/Co-Test 2006 Lipid Panel 04/10/2019 04/10/2014, 05/14/2011 Cervical Cancer Screening 06/02/2022 Pap Smear 06/02/2022 06/02/2019, 03/09, 04/01/2012, Additional history exists COLONOSCOPY-EVERY 3 YRS AGES 18-100 08/17/2022 08/17/2019, 08/17/2019, 10/21/2017, Additional history exists Influenza Vaccine (FLU shot) (#1) 2023 11/30/2022 Depression Screening, Annual for Pts 12 and Over 11/30/2023 11/30/2022 Mammogram 12/16/2023 12/16/2022, 06/08, 06/08/2019 DTaP,Tdap,and Td Vaccines (3 - Td or Tdap) 07/10/2031 07/10/2021, 11/27/2009 COVID-19 Vaccine Completed 07/28/2022, 04/2021, 01/04/2021, Additional history exists GARDASIL-HPV IMMUNIZATION SERIES Aged Out No longer eligible based on patient's age to complete this topic MENINGOCOCCAL (MENACTRA/MENVEO) Aged Out No longer eligible based on patient's age to complete this topic documented as of this encounter Medical Devices Not on filedocumented as of this encounter Procedures Procedure Name Priority Date/Time Associated Diagnosis Comments CBC Routine 07/02/2023 7:21 AM EDT Routine medical exam Inflammatory bowel diseases (IBD) documented in this encounter Results * CBC (07/02/2023 7:21 AM EDT) WBC 7.07 4.00 - 10.80 K/uL 07/02/2023 7:29 AM EDT [facility] [place] 56- RBC 4.67 3.85 - 5.15 M/uL 07/02/2023 7:29 AM EDT [facility] [place] 56- HGB 13.9 12.0 - 15.3 g/dL 07/02/2023 7:29 AM EDT [facility] [place] 56- HCT 42.4 36.0 - 45.2 % 07/02/2023 7:29 AM EDT [facility] 56- MCV 90.8 81.5 - 97.5 fL 07/02/2023 7:29 AM EDT [facility] 56- MCH 29.8 27.0 - 34.0 pg 07/02/2023 7:29 AM EDT [facility] 56-02 MCHC 32.8 32.0 - 36.0 g/dL 07/02/2023 7:29 AM EDT [facility] 56 RDW 12.7 11.5 - 15.5 % 07/02/2023 7:29 AM EDT [facility] 56 PLT 356 140 - 400 K/uL 07/02/2023 7:29 AM EDT [facility] 56 MPV 8.7 6.6 - 11.1 fL 07/02/2023 7:29 AM EDT [facility] 56 Blood Venous blood specimen / Unknown Venipuncture / Unknown 07/02/2023 7:21 AM EDT 07/02/2023 7:21 AM EDT Soheila Faustin MD LAB BLOOD ORDERABLES [place] [address] [address] [facility] [address] documented in this encounter Visit Diagnoses Diagnosis Screening for cardiovascular condition Screening for other and unspecified cardiovascular conditions Routine medical exam Routine general medical examination at a health care facility Inflammatory bowel diseases (IBD) Other and unspecified noninfectious gastroenteritis and colitis IBD (inflammatory bowel disease) Other and unspecified noninfectious gastroenteritis and colitis Need for hepatitis B vaccination Need for prophylactic vaccination and inoculation against viral hepatitis Encounter for HCV screening test for low risk patient Crohn's disease (HCC) Regional enteritis of unspecified [...] the patient have Health Care Power of Glue Size Machine Operator? No Care Teams Energy Project Engineer Relationship Specialty Start Date End Date Soheila Faustin MD [address] [facility] [place] [address] PCP - General Internal Medicine 11/30/22 documented as of this encounter
--- OUTSIDE RECORDS SUMMARY | 2023-09-17 12:23 | External Medical Summary | Summary of Care ---
Author Name Unknown Organization [facility] Address [address] [place] [address] Phone [phone] Care Team Providers Care Shredder Operator Name Role Phone Soheila Faustin MD Primary Care Provider Reason for Visit * Reason Comments Vaginal Itching Encounter Details Date Type Department Care Team Description 05/09/2023 Convenient Care Visit [facility] [address] [place] [address] Juan Jose Kerr PA-C [address] [place] [address] Yeast vaginitis* Allergies Active Allergy Reactions Severity Noted Date Comments Ciprofloxacin 07/14/2017 h/o knee pain Sulfa Antibiotics Hives Medium 12/14/2011 Azithromycin 08/06/2017 Legs swelled/tender day of starting antibiotics, unsure if this was related to antibiotics or not documented as of this encounter (statuses as of 05/09/2023) Medications Medication Sig Dispensed Refills Start Date End Date Status Multiple Vitamins-Minerals (HM MULTIVITAMIN ADULT GUMMY) CHEW Take by mouth. 0 Act chester diphenhydrAMINE (BENADRYL) 25 MG Capsule Take 2 tablets every 4-6 hrs. as needed for itching or hives. 50 Cap 1 03/16/2017 Active Mag Aspart-Potassium Aspart (POTASSIUM & MAGNESIUM ASPARTAT) 250-250 MG CAPS Take by mouth. 0 05/09/2019 Active cholecalciferol, VIT D3, (VITAMIN D3) 1000 UNITS Tablet Take 1 Tablet by mouth in the morning. 0 Active Lysine 500 MG TABS Take by mouth. 0 Ac tive Iron 325 (65 Fe) MG Oral Tablet Take by mouth . 0 Activ e Mesalamine 1.2 GM Oral Tablet Delayed Release [...] DAYS - 10 DAYS 0 04/26/2023 Active Fluconazole 150 MG Oral Tablet (Diflucan)Indicati ons:Yeast vaginitis Take 1 Tablet by mouth once for 1 dose. Repeat dose in 3 days. 2 Tablet 0 05/09/2023 3 Active Fluconazole 150 MG Oral Tablet (Diflucan)Indicati ons:Yeast vaginitis Take 1 Tablet by mouth once for 1 dose. Repeat dose in 3 days. 2 Tablet 0 05/09/2023 3 Discontinued documented as of this encounter (statuses as of 05/09/2023) Active Problems Problem Noted Date Inflammatory bowel diseases (IBD) 2022 Allergic rhinitis due to dust mite 03/16 Abnormal electrocardiogram 04/06/2014 Iron deficiency anemia 07/03/2013 History of pulmonary embolism 06/06/2013 Calcium oxalate renal calculi 04/25/2013 Bronchospasm, exercise-induced 2 Esophageal reflux 05/06/2010 Dysphagia, pharyngoesophageal phase 04/09 Temporomandibular joint disorder 010 VERTIGO,VASOMAOTOR INSTABILITY 0 documented as of this encounter (statuses as of 05/09/2023) Resolved Problems Problem Noted Date Resolved Date rn long term care current use of anticoagulant therapy 0 06/06/2013 07/22/2017 Overview: ICD-10 update of inactive term Anticoagulation management encounter 06/06/2013 07/22/2017 Allergic rhinitis 07/13/2012 03/16/2017 CHR OTITIS EXTERNA, W/CERUMENOSIS 05/06/2010 10/14/2011 Allergic rhinitis 04/28/2010 05/16/2012 Myalgia and myositis 04/28/2010 07/22/2017 documented as of this encounter (statuses as of 05/09/2023) Immunizations Name Administration Dates Next Due COVID-19 [...] Date Smoking Tobacco: Never Smokeless Tobacco: Never Tobacco Cessation:Counseling Given: Not Answered Comments:no passive smoke Alcohol Use Standard Drinks/Week [...] on file documented as of this encounter Last Filed Vital Signs Vital Sign Reading Time Taken Comments Blood Pressure 90/64 05/09/2023 3:56 PM EDT Pulse 56 05/09/2023 3:56 PM EDT Temperature 36.8 C (98.3 F) 05/09/2023 3:56 PM ED T Respiratory Rate 16 05/09/2023 3:56 PM EDT Oxygen Saturation 100% 05/09/2023 3:56 PM EDT Inhaled Oxygen Concentration - - Weight 49.9 kg (110 lb) 05/09/2023 3:56 PM EDT Height 157.5 cm (5' 2") 05/09/2023 3:56 PM EDT Body Mass Index 20.12 05/09/2023 3:56 PM EDT documented in this encounter Patient Instructions * Patient Instructions* Juan Jose Kerr PA-C - 05/09/2023 4:51 PM EDT Take medication as prescribed. F/U with PCP or return to clinic with no improvement in 3-5 days. Go immediately to the ED with any change or worsening symptoms including chills, fevers, back pain. documented in this encounter Progress Notes * Juan Jose Kerr PA-C - 05/09/2023 4:08 PM EDT CONVENIENT CARE NOTE HPI: Britta Ventura is a 48 year old female who presents with chief complaint of vaginal itch/burn x 4-5 days. Finished course of Augmentin Wednesday for facial/sinus infection. Started Wednesday/Wednesday with vaginal itching and burning. Started period yesterday. Has had yeast infection long time ago. Unsure of any abnormal vaginal discharge, did not notice anything and then started period. No urinary symptoms. No STI concerns. No lesions, just irritated , itching, burning. No concerns. ROS: See HPI for positives and negatives. Patient denies additional complaints. PAST MEDICAL HISTORY: Patient Active Problem List Diagnosis Code Esophageal reflux K21.9 Dysphagia, pharyngoesophageal phase R13.14 Temporomandibular joint disorder M26.609 VERTIGO,VASOMAOTOR INSTABILITY R42 Bronchospasm, exercise-induced J45.990 Calcium oxalate renal calculi N20.0 History of pulmonary embolism Z86.711 Iron deficiency anemia D50.9 Abnormal electrocardiogram R94.31 Allergic rhinitis due to dust mite J30.89 Inflammatory bowel diseases (IBD) K52.9 Past Surgical History: Procedure Laterality Date COLONOSCOPY, DIAGNOSTIC (RECTUM) 10/21/2017 inflammatory changes on bx/COLONOSCOPY FLEXIBLE PROXIMAL DIAGNOSTIC performed by Yasir Simms DO at ENDOSCOPY [facility] COLONOSCOPY, DIAGNOSTIC (RECTUM) 09/27/2017 COLONOSCOPY FLEXIBLE PROXIMAL DIAGNOSTIC performed by Yasir Simms DO at ENDOSCOPY [facility] COLONOSCOPY, DIAGNOSTIC (RECTUM) 08/17/2019 inflammatory changes on bx, repeat 3 yrs/COLONOSCOPY FLEXIBLE PROXIMAL DIAGNOSTIC performed by Yasir Simms DO at ENDOSCOPY [facility] CYSTOSCOPY/INSERTION OF STENT 05/22/2013 CYSTOURETHROSCOPY WITH INSERTION URETERAL STENT performed by Ida Carter MD at [facility] CYSTOURETRO W/STONE REMOVE 05/22/2013 CYSTOURETHROSCOPY URETROSCOPY WITH STONE REMOVAL performed by Ida Carter MD at OR [facility] FOREARM/WRIST SURGERY NEC 01/2008 wrist fracture Review of patient's allergies indicates: Allergen Reactions Sulfa Antibiotics Hives Ciprofloxacin h/o knee pain Zithromax [Azithromycin] Legs swelled/tender day of starting antibiotics, unsure if this was related to antibiotics or not Current Outpatient Medications Medication Sig Dispense Refill Fluconazole 150 MG Oral Tablet (Diflucan) Take 1 Tablet by mouth once for 1 dose. Repeat dose in 3 days. 2 Tablet 0 Multiple Vitamins-Minerals (HM MULTIVITAMIN ADULT GUMMY) CHEW Take by mouth. diphenhydrAMINE (BENADRYL) 25 MG Capsule Take 2 tablets every 4-6 hrs. as needed for itching orhives. 50 Cap 1 Mag Aspart-Potassium Aspart (POTASSIUM & MAGNESIUM ASPARTAT) [...] . (Patient not taking: Reported on 04/29/2023) Mesalamine 1.2 GM Oral Tablet Delayed Release (Lialda) Take by mouth 1 Tablet in the morning. 90 Tablet 3 B Complex-C Oral Tablet Take 1 Tablet by mouth in the morning. (Patient not taking: Reported on04/29/2023) Zinc 50 MG Oral Capsule Take 1 Capsule by mouth in the morning. (Patient not taking: Reported on 04/29/2023) Fluticasone Propionate 50 MCG/ACT Nasal Suspension (Flonase) Administer 2 Sprays into each nostril in the morning. 3 Each 3 Amoxicillin-Pot Clavulanate 875-125 MG Oral Tablet (Augmentin) TAKE 1 TABLET BY MOUTH TWO TIMESDAILY FOR 7 DAYS - 10 DAYS No current facility-administered medications for this visit. [...] Brink, SRNA 2 mg at 05/22/13 1321 Nursing Notes: Cynthia Loya LPN 05/09/23 1600 Signed 48 yo female presents with vaginal burning/itching. Just finished a course of abx EXAM: BP 90/64 | Pulse 56 | Temp 36.8 C (98.3 F) (Tympanic) | Resp 16 | Ht 1.575 m (5' 2") | Wt 49.9 kg (110 lb) | SpO2 100% | BMI 20.12 kg/m | BSA 1.48 m GENERAL: alert, healthy, no distress, well nourished and well developed HEAD: Normocephalic, atraumatic EYES: PERRL, EOMI, Conjunctiva are pink and non-injected, sclera clear Pelvic Exam: declines exam today SKIN: skin color, texture, turgor are normal, no rashes or significant lesions NEURO: alert & oriented x 3 with fluent speech, no focal motor/sensory deficits ASSESSMENT/PLAN Yeast vaginitis (Primary) - Fluconazole 150 MG Oral Tablet (Diflucan); Take 1 Tablet by mouth once for 1 dose. Repeat dose in3 days. If fails to improve, needs to return for full exam. Pt verbalized understanding and agrees with plan. Questions/Concerns addressed. Patient Goals for plan of care discussed in detail. Patient Instructions Take medication as prescribed. F/U with PCP or return to clinic with no improvement in 3-5 days. Go immediately to the ED with any change or worsening symptoms including chills, fevers, back pain. FOLLOW UP: Patient instructed to follow up with Primary Care Provider if no better in 5-7 days and immediately if signs and symptoms worsen. Go to ED for acutely worsening symptoms. Juan Jose Kerr PA-C [facility] [address] [facility] [address] documented in this encounter Nursing Notes * Cynthia Loya LPN - 05/09/2023 3:56 PM EDT 48 yo female presents with vaginal burning/itching. Just finished a course of abx documented in this encounter Plan of Treatment Upcoming Encounters Date Type Specialty Care Team Description 06/14/2023 Office Visit Internal Medicine Soheila Faustin MD [address] [place] [address] 09/20/2023 Hospital Encounter Endoscopy Erum Hooks, DO [address] [place] [address] 09/20/2023 Surgery Endoscopy Erum Hooks, DO [address] [place] [address] COLONOSCOPY FLEXIBLE PROXIMAL DIAGNOSTIC 11/05/2023 Telemedicine Gastroenterology Amina Staples CRNP [address] [place] [address] Scheduled Procedures Name Priority Associated Diagnoses Date/Ti [...] as of this encounter Visit Diagnoses Diagnosis Yeast vaginitis- Primary Candidiasis of vulva and vagina Crohn's disease (HCC) Regional enteritis of unspecified [...] the patient have Health Care Power of Car Customizer? No Care Teams Shredder Operator Relationship Specialty Start Date End Date Soheila Faustin MD [address] [facility] [place] [address] PCP - General Internal Medicine 11/30/22 documented as of this encounter
--- OUTSIDE RECORDS SUMMARY | 2023-09-17 12:23 | External Medical Summary | Summary of Care ---
Author Name Unknown Organization [facility] Address [address] [place] [address] Phone [phone] Care Team Providers Care Program Manager Environmental Planning Name Role Phone Soheila Faustin MD Primary Care Provider [phone] Reason for Visit * Reason Comments Sinus Problem Soreness on R side o f nostril x's 1 month. Patient states getting worse. Concerns of sinus infection. Fatigue Achiness X's 3 days. Encounter Details Date Type Department Care Team Description 04/28/2023 Office Visit General Internal Medicine [facility] [address] [facility] [place] [address] Aquilino Jeffers PA-C [address] [facility] [place] [address] Mass of face* Allergies Active Allergy Reactions Severity Noted Date Comments Ciprofloxacin 07/14/2017 h/o knee pain Sulfa Antibiotics Hives Medium 12/14/2011 Azithromycin 08/06/2017 Legs swelled/tender day of starting antibiotics, unsure if this was related to antibiotics or not documented as of this encounter (statuses as of 04/28/2023) Medications Medication Sig Dispensed Refills Start Date [...] DAYS - 10 DAYS 0 04/26/2023 Active loratadine (CLARITIN) 10 MG Tablet Take 1 Tab by mouth daily. For nasal allergy symptoms or persistent hives 30 Tab 11 03/16/2017 3 Discontinued documented as of this encounter (statuses as of 04/28/2023) Active Problems Problem Noted Date Inflammatory bowel diseases (IBD) 2022 Allergic rhinitis due to dust mite 03/16 Abnormal electrocardiogram 04/06/2014 Iron deficiency anemia 07/03/2013 History of pulmonary embolism 06/06/2013 Calcium oxalate renal calculi 04/25/2013 Bronchospasm, exercise-induced 2 Esophageal reflux 05/06/2010 Dysphagia, pharyngoesophageal phase 04/09 Temporomandibular joint disorder 010 VERTIGO,VASOMAOTOR INSTABILITY 0 documented as of this encounter (statuses as of 04/28/2023) Resolved Problems Problem Noted Date Resolved Date 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 0 06/06/2013 07/22/2017 Overview: ICD-10 update of inactive term Anticoagulation management encounter 06/06/2013 07/22/2017 Allergic rhinitis 07/13/2012 03/16/2017 CHR OTITIS EXTERNA, W/CERUMENOSIS 05/06/2010 10/14/2011 Allergic rhinitis 04/28/2010 05/16/2012 Myalgia and myositis 04/28/2010 07/22/2017 documented as of this encounter (statuses as of 04/28/2023) Immunizations Name Administration Dates Next Due COVID-19 [...] Sign Reading Time Taken Comments Blood Pressure 100/64 04/28/2023 7:03 AM EDT Pulse 63 04/28/2023 7:03 AM EDT Temperature 36.3 C (97.4 F) 04/28/2023 7:03 AM ED T Respiratory Rate - - Oxygen Saturation 99% 04/28/2023 7:03 AM EDT Inhaled Oxygen Concentration - - Weight 49.7 kg (109 lb 8 oz) 04/28/2023 7:03 AM EDT Height 157.5 cm (5' 2") 04/28/2023 7:03 AM EDT Body Mass Index 20.03 04/28/2023 7:03 AM EDT documented in this encounter Progress Notes * Aquilino Jeffers PA-C - 04/28/2023 7:05 AM EDT Subjective: Britta Ventura is a 48 year old female. Chief Complaint Patient presents with Sinus Problem Soreness on R side of nostril x's 1 month. Patient states getting worse. Concerns of sinus infection. Fatigue Achiness X's 3 days. HPI: 48 y/o female with GERD, IBD seen today with complaint of hard lump to right side of nostril. Started to hurt more on Wednesday. Some discomfort in tooth with eating and smiling at times. Saw dentist who started on Augmentin. Xray with possible finding and referred to endontist for possible root canal. Fatigue and achiness for the last three days. PMH: Patient Active Problem List Diagnosis Code Esophageal reflux K21.9 Dysphagia, pharyngoesophageal phase R13.14 Temporomandibular joint disorder M26.609 VERTIGO,VASOMAOTOR INSTABILITY R42 Bronchospasm, exercise-induced J45.990 Calcium oxalate renal calculi N20.0 History of pulmonary embolism Z86.711 Iron deficiency anemia D50.9 Abnormal electrocardiogram R94.31 Allergic rhinitis due to dust mite J30.89 Inflammatory bowel diseases (IBD) K52.9 Current Outpatient Medications Medication Sig Dispense Refill [...] ASPARTAT) 250-250 MG CAPS Take by mouth. cholecalciferol, VIT D3, (VITAMIN D3) 1000 UNITS Tablet Take 1 Tablet by mouth in the morning. Lysine 500 MG TABS Take by mouth. Iron 325 (65 Fe) MG Oral Tablet Take by mouth . B Complex-C Oral Tablet Take 1 Tablet by mouth in the morning. Zinc 50 MG Oral Capsule Take 1 Capsule by mouth in the morning. No current facility-administered medications for this visit. Facility-Administered Medications Ordered in Other Visits Medication Dose Route Frequency Provider Last Rate Last Admin ketorolac (TORADOL) 30 MG/ML inj Once PRN Delia Brink, SRNA 30 mg at 05/22/13 1331 ondansetron (ZOFRAN) inj Once PRN Delia Brink, SRNA 4 mg at 08/17/19 1014 glycopyrrolate (ROBINUL) inj Once PRN Delia Rollinsy, SRNA 0.4 mg at 05/22/13 1321 neostigmine methylsulfate (PROSTIGMIN) 1 MG/ML inj Once PRN Delia Brink, SRNA 2 mg at 05/22/13 1321 Review of patient's allergies indicates: Allergen Reactions Sulfa Antibiotics Hives Ciprofloxacin h/o knee pain Zithromax [Azithromycin] Legs swelled/tender day of starting antibiotics, unsure if this was related to antibiotics or not All other review of systems reviewed and negative other than mentioned in HPI. Objective: BP 100/64 | Pulse 63 | Temp 36.3 C (97.4 F) | Ht 1.575 m (5' 2") | Wt 49.7 kg (109 lb 8 oz) | SpO2 99% | BMI 20.03 kg/m | BSA 1.47 m Physical Exam Constitutional: General: She is not in acute distress. Appearance: Normal appearance. She is normal weight. She is not ill-appearing or toxic-appearing. HENT: Head: Normocephalic and atraumatic. Comments: Tender 4 mm nodule at base of right nostril Right Ear: Tympanic membrane, ear canal and external ear normal. There is no impacted cerumen. Left Ear: Tympanic membrane, ear canal and external ear normal. There is no impacted cerumen. Nose: Nose normal. Mouth/Throat: Mouth: Mucous membranes are moist. Pharynx: Oropharynx is clear. No oropharyngeal exudate or posterior oropharyngeal erythema. Eyes: General: Right eye: No discharge. Left eye: No discharge. Extraocular Movements: Extraocular movements intact. Conjunctiva/sclera: Conjunctivae normal. Pupils: Pupils are equal, round, and reactive to light. Neurological: Mental Status: She is alert. ASSESSMENT: Mass of face (Primary) Lump noted on palpation that is slightly tender. Was referred to Ship Propeller Finisher. Recommend having this evaluation given was referred. Complete Augmentin. Can report back to me if definitive management is not received from [employer]. Can reach back outto me to obtain CT to further delineate if needed. Follow Up: Return if symptoms worsen or fail to improve. Aquilino Jeffers PA-C documented in this encounter Nursing Notes * Sabina Castillo LPN - 04/28/2023 7:00 AM EDT Chief Complaint Patient presents with Sinus Problem Soreness on R side of nostril x's 1 month. Patient states getting worse. Concerns of sinus infection. Fatigue Achiness X's 3 days. documented in this encounter Plan of Treatment Upcoming Encounters Date Type Specialty Care Team Description 04/29/2023 Telemedicine Gastroenterology Amina Staples CRNP [address] [place] [address] 06/14/2023 Office Visit Internal [facility] [address] [facility]/20/2023 Hospital Encounter Endoscopy Erum Hooks, [address] [place] [address] 09/20/2023 Surgery Endoscopy Erum Hooks, DO [address] [place] [address] COLONOSCOPY FLEXIBLE PROXIMAL DIAGNOSTIC Scheduled Procedures Name Priority Associated Diagnoses Date/Ti [...] as of this encounter Visit Diagnoses Diagnosis Mass of face- Primary Crohn's disease (HCC) Regional enteritis of unspecified [...] the patient have Health Care Power of License Issuer? No Care Teams Program Manager Environmental Planning Relationship Specialty Start Date End Date Soheila Faustin MD [address] [place] [address] PCP - General Internal Medicine 11/30/22 documented as of this encounter
--- OUTSIDE RECORDS SUMMARY | 2023-09-17 12:23 | External Medical Summary ---
Author Name Unknown Address Unknown Organization K09:[facility] [place] [address] Laboratory Report Ordering Provider Test Date Status VALENTE GALVAN 07/02/2023 07:21:35 Final Observation Date Value Abnormality Reference (Units ) Status WBC, Total 07/02/2023 07:21:35 7.07 4.00-10.8 0 (K/uL) Final RBC 07/02/2023 07:21:35 4.67 3.85-5.15 (M/uL) Final Hemoglobin 07/02/2023 07:21:35 13.9 12.0-15.3 (g/dL) Final HCT 07/02/2023 07:21:35 42.4 36.0-45.2 (%) Final MCV 07/02/2023 07:21:35 90.8 81.5-97.5 (fL) Final MCH 07/02/2023 07:21:35 29.8 27.0-34.0 (pg) Final MCHC 07/02/2023 07:21:35 32.8 32.0-36.0 (g/dL) Final RDW 07/02/2023 07:21:35 12.7 11.5-15.5 (%) Final Platelets 07/02/2023 07:21:35 356 140-400 (K /uL) Final MPV 07/02/2023 07:21:35 8.7 6.6-11.1 ( fL) Final Performing Location [facility] [place] [address]
--- OUTSIDE RECORDS SUMMARY | 2023-09-17 12:23 | External Medical Summary | Summary of Care ---
Author Name Unknown Organization [facility] Address [address] [place] [address] Phone [phone] Care Team Providers Care Refrigerator Room Clerk Name Role Phone Soheila Faustin MD Primary Care Provider [phone] Reason for Referral * Evaluate & Treat - Unlimited Visits (Within 30 days (routine)) - Pending Review Specialty Diagnoses / Procedures Referred By Keturah flanagan Referred To Contact Obstetrics/Gynecology / Gynecology Obstetrics Diagnoses Encounter for gynecological examination without abnormal finding Soheila Faustin MD [address] [place] [address] Referral ID Status Reason Start Date Expiration Date Visits Requested Visits Authorized [id number] Pending Review Specialty Services Required 06/14/[phone] Question Answer Referral Priority Within 30 days (routine) What condition is the patient being seen for? Annual Wellness Reason for Visit * Reason Comments Re-Check Encounter Details Date Type Department Care Team Description 06/14/2023 Office Visit General Internal Medicine [facility] [address] [place] [address] [address] Soheila Faustin MD [address] [place] [address] [address] Rash and nonspecific skin eruption*; Calcium oxalate renal calculi; Dysphagia, pharyngoesophageal phase; Gastroesophageal reflux disease without esophagitis; History of pulmonary embolism; Inflammatory bowel diseases (IBD); Bronchospasm, exercise-induced; Allergic rhinitis due to dust mite; Temporomandibular joint disorder; Other iron deficiency anemia; VERTIGO,VASOMAOTOR INSTABILITY; Encounter for gynecological examination without abnormal finding; Need for hepatitis B vaccination; Encounter for HCV screening test for low risk patient Allergies Active Allergy Reactions Severity Noted Date Comments Ciprofloxacin 07/14/2017 h/o knee pain Sulfa Antibiotics Hives Medium 12/14/2011 Azithromycin 08/06/2017 Legs swelled/tender day of starting antibiotics, unsure if this was related to antibiotics or not documented as of this encounter (statuses as of 06/14/2023) Medications Medication Sig Dispensed Refills Start Date [...] THE MORNING 90 Tablet 0 06/07/2023 Active Amoxicillin-Pot Clavulanate 875-125 MG Oral Tablet (Augmentin) TAKE 1 TABLET BY MOUTH TWO TIMES DAILY FOR 7 DAYS - 10 DAYS 0 04/26/2023 3 Discontinue d(End of Procedure) documented as of this encounter (statuses as of 06/14/2023) Active Problems Problem Noted Date Inflammatory bowel diseases (IBD) 2022 Allergic rhinitis due to dust mite 03/16 Iron deficiency anemia 07/03/2013 History of pulmonary embolism 06/06/2013 Calcium oxalate renal calculi 04/25/2013 Bronchospasm, exercise-induced 2 Esophageal reflux 05/06/2010 Dysphagia, pharyngoesophageal phase 04/09 Temporomandibular joint disorder 010 VERTIGO,VASOMAOTOR INSTABILITY 0 documented as of this encounter (statuses as of 06/14/2023) Resolved Problems Problem Noted Date Resolved Date Dyspareunia in female 06/14/2023 06/14/2023 Vaginal dryness, menopausal 06/14/2023 08/0 05/2023 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 0 06/06/2013 07/22/2017 Overview: ICD-10 update of inactive term Anticoagulation management encounter 06/06/2013 07/22/2017 Allergic rhinitis 07/13/2012 03/16/2017 CHR OTITIS EXTERNA, W/CERUMENOSIS 05/06/2010 10/14/2011 Allergic rhinitis 04/28/2010 05/16/2012 Myalgia and myositis 04/28/2010 07/22/2017 documented as of this encounter (statuses as of 06/14/2023) Immunizations Name Administration Dates Next Due COVID-19 mRNA, LNP-s, No Pre serve, 2-Dose Series (Nimbix) 08/13/2021,01/04/2021,12/14/2020 Covid-19, Mrna, Lnp-s, Pf, B ivalent, [...] Sign Reading Time Taken Comments Blood Pressure 96/60 06/14/2023 1:41 PM EDT Pulse 60 06/14/2023 1:41 PM EDT Temperature 36.9 C (98.4 F) 06/14/2023 1:41 PM ED T Respiratory Rate 16 06/14/2023 1:41 PM EDT Oxygen Saturation 98% 06/14/2023 1:41 PM EDT Inhaled Oxygen Concentration - - Weight 50.5 kg (111 lb 6.4 oz) 06/14/2023 1:41 P M EDT Height 157.5 cm (5' 2") 06/14/2023 1:41 PM EDT Body Mass Index 20.38 06/14/2023 1:41 PM EDT documented in this encounter Progress Notes * Soheila Faustin MD - 06/14/2023 1:47 PM EDT Images from the original note were not included. History of Present Illness Britta Ventura is a 48 year old female that presents for Re-Check 48 YOF with PMH of Chron's disease, his of PE, iron def anemia ,allergic rhinitis, TMJ, h/o kidney stone and GERD presents here for recheck. Acute concern :- -rash recently with eating gluten - few days ago - no itching or pain . Usually avoid it due to having celiac . No change in BM , abd pain Interimmedical history : Diagnosed with IBS/chrohns by gastro. Is having a colonoscopy in september Watching diet and exercise : yes Routine labs : due Routine HM : agreeable to heb B vaccine Chronic medical problem: reviewed and stable Physical Exam Vitals: 06/14/23 1341 Temp: 36.9 C (98.4 F) Pulse: 60 Resp: 16 SpO2: 98% BP: 96/60 BMI: 20.37 Physical Exam Vitals and nursing note reviewed. Constitutional: General: She is not in acute distress. Appearance: She is normal weight. HENT: Head: Normocephalic. Cardiovascular: Rate and Rhythm: Normal rate and regular rhythm. Pulmonary: Effort: Pulmonary effort is normal. No respiratory distress. Breath sounds: No wheezing. Abdominal: General: Bowel sounds are normal. There is no distension. Palpations: Abdomen is soft. There is no mass. Musculoskeletal: General: No swelling, tenderness or signs of injury. Cervical back: Neck supple. No rigidity. Skin: General: Skin is warm. Findings: Rash (scattered erythematous lesions in both legs and 2 dot like lesions in close proximity in tail bone which looks like bite ) present. No erythema or lesion. Neurological: Mental Status: She is alert. I have reviewed the following results: Assessment and Plan Rash and nonspecific skin eruption Will watch , call if worsening Doubt from gluten allergy Calcium oxalate renal calculi Dysphagia, pharyngoesophageal phase Better Gastroesophageal reflux disease without esophagitis Stable Continue current treatment as directed History of pulmonary embolism Inflammatory bowel diseases (IBD) Stable Continue current treatment as directed by GI Bronchospasm, exercise-induced Allergic rhinitis due to dust mite Stable Continue current treatment as directed Temporomandibular joint disorder Other iron deficiency anemia Stable Continue current treatment as directed VERTIGO,VASOMAOTOR INSTABILITY Encounter for gynecological examination without abnormal finding - SCHOLASTIC APTITUDE TEST GRADER REFERRAL OP Need for hepatitis B vaccination - HEPATITIS B SURFACE ANTIBODY; Future Encounter for HCV screening test for low risk patient - HEPATITIS C ANTIBODY SCREEN WITH PROGRESSION TO HEPATITIS C RNA QUANTITATIVE; Future Wrap-Up Time: I spent a total of 30-39 minutes (exact time 34 mins) on the date of service in preparation, delivery, and documentation of the care provided to Britta Ventura excluding any time spent in the performance of separately billed services. documented in this encounter Nursing Notes * Violet Mitchell LPN - 06/14/2023 1:38 PM EDT Britta Ventura presents for 6 month recheck. Medications & HM reviewed. States she gets little red bumps on her legs randomly. Not painful or itchy. Diagnosed with IBS/chrohns by gastro. Is having a colonoscopy in september documented in this encounter Plan of Treatment Upcoming Encounters Date Type Specialty Care Team Description 09/20/2023 Hospital Encounter Endoscopy Erum Hooks, DO [address] [place] [address] 09/20/2023 Surgery Endoscopy Erum Hooks, DO [address] [place] [address] COLONOSCOPY FLEXIBLE PROXIMAL DIAGNOSTIC 10/28/2023 Telemedicine Gastroenterology Amina Staples CRNP [address] [place] [address] 12/16/2023 Office Visit Internal Medicine Soheila Faustin MD [address] [place], [place] [id number] 05/19/2024 Office Visit Gynecology Obstetrics Connie Fernando PA-C [address] [facility] [place] [address] Scheduled Orders Name Type Priority Associated Diagnoses Orde r Schedule HEPATITIS B SURFACE ANTIBODY Lab Routine Need for hepatitis B vaccination Expected: 06/14/2023 (Approximate), Expires: 06/13/2024 HEPATITIS C ANTIBODY SCREEN WITH PROGRESSION TO HEPATITIS C RNA QUANTITATIVE Lab Routine Encounter for HCV screening test for low risk patient Expected: 06/14/2023 (Approximate), Expires: 06/13/2024 Scheduled Procedures Name Priority Associated Diagnoses Date/Ti me COLONOSCOPY FLEXIBLE PROXIMAL DIAGNOSTIC Crohn's disease (HCC) 09/20/2023 11:45 AM EST Scheduled Referrals Name Type Priority Associated Diagnoses Orde r Schedule SCHOLASTIC APTITUDE TEST GRADER REFERRAL OP Referral Within 30 days (routine) Encounter for gynecological examination without abnormal finding Ordered: 06/14/2023 Health Maintenance Due Date Last Done Comments [...] as of this encounter Visit Diagnoses Diagnosis Rash and nonspecific skin eruption- Primary Rash and other nonspecific skin eruption Calcium oxalate renal calculi Calculus of kidney Dysphagia, pharyngoesophageal phase Gastroesophageal reflux disease without esophagitis Esophageal reflux History of pulmonary embolism Personal history of pulmonary embolism Inflammatory bowel diseases (IBD) Other and unspecified noninfectious gastroenteritis and colitis Bronchospasm, exercise-induced Exercise induced bronchospasm Allergic rhinitis due to dust mite Temporomandibular joint disorder Temporomandibular joint disorders, unspecified Other iron deficiency anemia VERTIGO,VASOMAOTOR INSTABILITY Dizziness and giddiness Encounter for gynecological examination without abnormal finding Routine gynecological examination Need for hepatitis B vaccination Need for [...] the patient have Health Care Power of Ship'S Carpenter? No Care Teams Refrigerator Room Clerk Relationship Specialty Start Date End Date Soheila Faustin MD [address] [facility] [place] [address] PCP - General Internal Medicine 11/30/22 documented as of this encounter
--- OUTSIDE RECORDS SUMMARY | 2023-09-17 12:23 | External Medical Summary | Summary of Care ---
Author Name Unknown Organization [facility] Address [address] [place] [address] Phone [phone] Care Team Providers Care Application Support Consultant Name Role Phone Soheila Faustin MD Primary Care Provider [phone] Reason for Visit * Reason Comments eRx-Medication Refill Encounter Details Date Type Department Care Team Description 06/07/2023 Refill Gastroenterology, [facility] [address] [facility] [place] [address] CRNP [address] [facility] [place] [address] Allergies Active Allergy Reactions Severity Noted Date Comments Ciprofloxacin 07/14/2017 h/o knee pain Sulfa Antibiotics Hives Medium 12/14/2011 Azithromycin 08/06/2017 Legs swelled/tender day of starting antibiotics, unsure if this was related to antibiotics or not documented as of this encounter (statuses as of 06/07/2023) Medications Medication Sig Dispensed Refills Start Date [...] 500 MG TABS Take by mouth. 0 A ctive Iron 325 (65 Fe) MG Oral Tablet Take by mouth . 0 Activ e B Complex-C Oral Tablet Take 1 Tablet [...] DAYS - 10 DAYS 0 04/26/2023 Active Mesalamine 1.2 GM Oral Tablet Delayed Release (Lialda) TAKE 1 TABLET BY MOUTH EVERY DAY IN THE MORNING 90 Tablet 0 06/07/2023 Active Mesalamine 1.2 GM Oral Tablet Delayed Release (Lialda) Take by mouth 1 Tablet in the morning. 90 Tablet 3 06/08/2022 3 Discontinued documented as of this encounter (statuses as of 06/07/2023) Active Problems Problem Noted Date Inflammatory bowel diseases (IBD) 2022 Allergic rhinitis due to dust mite 03/16 Abnormal electrocardiogram 04/06/2014 Iron deficiency anemia 07/03/2013 History of pulmonary embolism 06/06/2013 Calcium oxalate renal calculi 04/25/2013 Bronchospasm, exercise-induced 2 Esophageal reflux 05/06/2010 Dysphagia, pharyngoesophageal phase 04/09 Temporomandibular joint disorder 010 VERTIGO,VASOMAOTOR INSTABILITY 0 documented as of this encounter (statuses as of 06/07/2023) Resolved Problems Problem Noted Date Resolved Date 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 0 06/06/2013 07/22/2017 Overview: ICD-10 update of inactive term Anticoagulation management encounter 06/06/2013 07/22/2017 Allergic rhinitis 07/13/2012 03/16/2017 CHR OTITIS EXTERNA, W/CERUMENOSIS 05/06/2010 10/14/2011 Allergic rhinitis 04/28/2010 05/16/2012 Myalgia and myositis 04/28/2010 07/22/2017 documented as of this encounter (statuses as of 06/07/2023) Immunizations Name Administration Dates Next Due COVID-19 [...] on file documented as of this encounter Miscellaneous Notes * Telephone Encounter - Sherly Snyder [facility] - 06/07/2023 3:27 PM EDTSigned Prescriptions: Disp Refills Mesalamine 1.2 GM Oral Tablet Delayed Rele*90 Tab*0 Sig: TAKE 1 TABLET BY MOUTH EVERY DAY IN THE MORNINGAuthorizing Provider: AMINA STAPLES User: SHERLY SNYDER * Telephone Encounter - [facility] - 06/07/2023 4:46 AM EDTPending Prescriptions: Disp Refills Mesalamine 1.2 GM Oral Tablet Delayed Rele*90 Tab*3 Sig: TAKE 1 TABLET BY MOUTH EVERY DAY IN THE MORNING * Telephone Encounter - [facility] - 06/07/2023 4:45 AM EDT Did you pend patient's preferred pharmacy and medication before forwarding?yes Pharmacy: [facility] [id number] [place] [address] Pending Prescriptions: Disp Refills Mesalamine 1.2 GM Oral Tablet Delayed Rel*90 Tab*3 Sig: TAKE 1 TABLET BY MOUTH EVERY DAY IN THE MORNING Last Visit: 02/05/2022 (in office), 04/29/2023 (telemedicine) Next Visit: 10/28/2023 If no future appointments scheduled, and last appointment is greater than a year ago, please schedule patient for a follow-up appointment Last date the medication was ordered: 06/08/2022 Is this request for a controlled substance?No Urine Drug Screen:No results found for this or any previous visit. Patient Phone Numbers Labs: Lab Results Component Value Date/Time CREAT 0.93 05/01/2022 12:00 AM CREAT 1.0 05/19/2019 11:11 AM POTASSIUM 3.8 05/01/2022 12:00 AM POTASSIUM 4.1 05/09/2019 11:35 AM TSH 1.27 07/10/2021 09:11 AM TSH 1.72 09/05/2014 11:32 AM LDLCALC 78 04/10/2014 08:01 AM LDLDIRECT NOT APPLICABLE 04/10/2014 08:01 AM ALT 13 07/10/2021 09:11 AM ALT 12 05/09/2019 11:35 AM documented in this encounter Plan of Treatment Upcoming Encounters Date Type Specialty Care Team Description 06/14/2023 Office Visit Internal Medicine Soheila Faustin MD [address] [place] [address] 09/20/2023 Hospital Encounter Endoscopy Erum Hooks, DO [address] [place] [address] 09/20/2023 Surgery Endoscopy Erum Hooks, [address] [place] [address] COLONOSCOPY FLEXIBLE PROXIMAL DIAGNOSTIC 10/28/2023 Telemedicine Gastroenterology Amina Staples CRNP [address] [place] [address] Scheduled Procedures Name Priority Associated Diagnoses Date/Ti [...] Not on filedocumented as of this encounter Advance Directives Latest Code Status on File Code Status Date Activated Date Inactivated Comments Full Code 05/22/2013 10:31 AM 05/22/2013 10:20 PM Thi s order reflects the patients wishes and were consensually agreed upon. Question Answer Comments Discussion of Advance Directives occurred with: Not Discussed Does the patient have a Living Will? No Does the patient have Health Care Power of Adhesive Bandage Making Operator? No Care Teams Application Support Consultant Relationship Specialty Start Date End Date Soheila Faustin MD [address] [place] [address] PCP - General Internal Medicine 11/30/22 documented as of this encounter
--- OUTSIDE RECORDS SUMMARY | 2023-09-17 12:23 | External Medical Summary | Summary of Care ---
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 Name Role Phone Soheila Faustin MD Primary Care Provider [phone] Reason for Visit * Reason Onset Date Comments Health Maintenance 05/17/2023 Encounter Details Date Type Department Care Team Description 05/17/2023 Telephone General Internal Medicine [facility] [place] [address] [place] [address] Soheila Faustin MD [address] [place] [address] Health Maintenance Allergies Active Allergy Reactions Severity Noted Date Comments Ciprofloxacin 07/14/2017 h/o knee pain Sulfa Antibiotics Hives Medium 12/14/2011 Azithromycin 08/06/2017 Legs swelled/tender day of starting antibiotics, unsure if this was related to antibiotics or not documented as of this encounter (statuses as of 05/17/2023) Medications Medication Sig Dispensed Refills Start Date [...] as of this encounter (statuses as of 05/17/2023) Active Problems Problem Noted Date Inflammatory bowel diseases (IBD) 2022 Allergic rhinitis due to dust mite 03/16 Abnormal electrocardiogram 04/06/2014 Iron deficiency anemia 07/03/2013 History of pulmonary embolism 06/06/2013 Calcium oxalate renal calculi 04/25/2013 Bronchospasm, exercise-induced 2 Esophageal reflux 05/06/2010 Dysphagia, pharyngoesophageal phase 04/09 Temporomandibular joint disorder 010 VERTIGO,VASOMAOTOR INSTABILITY 0 documented as of this encounter (statuses as of 05/17/2023) Resolved Problems Problem Noted Date Resolved Date terminologist current use of anticoagulant therapy 0 06/06/2013 07/22/2017 Overview: ICD-10 update of inactive term Anticoagulation management encounter 06/06/2013 07/22/2017 Allergic rhinitis 07/13/2012 03/16/2017 CHR OTITIS EXTERNA, W/CERUMENOSIS 05/06/2010 10/14/2011 Allergic rhinitis 04/28/2010 05/16/2012 Myalgia and myositis 04/28/2010 07/22/2017 documented as of this encounter (statuses as of 05/17/2023) Immunizations Name Administration Dates Next Due COVID-19 [...] encounter Miscellaneous Notes * Telephone Encounter - Medina Howe LPN - 05/17/2023 10:11 AM EDT Care Gaps Comprehensive Care Outreach Last Office/Telemedicine Visit: 04/28/2023 (in office), Visit date not found (telemedicine) Next Office Visit: 06/14/2023 Hemoglobin AIC Results: No results found for: HEMOGLOBIN A1C Reviewed Health Maintenance below: Health Maintenance Topic Date Due Hepatitis B (1 of 3 - 3-dose series) Never done Pneumococcal Vaccine: Pediatrics (0 to 5 Years) and At-Risk Patients (6 to 64 Years) (1 - PCV) Never done Hepatitis C Screening Never done Lipid Panel 04/10/2019 COLONOSCOPY-EVERY 3 YRS AGES 18-100 08/17/2022 Influenza Vaccine (FLU shot) (1) 07/09/2023 Lipid already ordered Colon already scheduled Care Gap Outreach Action Taken: Outreach not indicated documented in this encounter Plan of Treatment Upcoming Encounters Date Type Specialty Care Team Description 06/14/2023 Office Visit Internal Medicine Soheila Faustin MD [address] [place] [address] 09/20/2023 Hospital Encounter Endoscopy Erum Hooks, DO [address] [place] [address] 09/20/2023 Surgery Endoscopy Erum Hooks, [address] [place] [address] COLONOSCOPY FLEXIBLE PROXIMAL DIAGNOSTIC 11/05/2023 Telemedicine Gastroenterology Amina Staples CRNP [address] [place] [address] Scheduled Procedures Name Priority Associated Diagnoses Date/Ti [...] the patient have Health Care Power of Prn Occupational Therapist? No Care Teams Atomic Fuel Assembler Relationship Specialty Start Date End Date Soheila Faustin MD [address] [place] [address], [place] [address] PCP - General Internal Medicine 11/30/22 documented as of this encounter
--- OUTSIDE RECORDS SUMMARY | 2023-09-17 12:23 | External Medical Summary ---
Author Name Unknown Address Unknown Organization [id number]:[facility] [address] [place] [address] Laboratory Report Ordering Provider Test Date Status VALENTE GALVAN 07/02/2023 07:21:35 Final Observation Date Value Abnormality Reference (Units ) Status BUN 07/02/2023 07:21:35 25 Above high normal 6-20 (mg/dL) Final Creatinine 07/02/2023 07:21:35 1.0 0.5-1.0 (mg/dL) Final Glomerular filtration rate/1.73 sq M.predicted [Volume Rate/Area] in Serum, Plasma or Blood by Creatinine-based formula (CKD-EPI) 07/02/2023 07:21:35 74 >=60 (mL/min) Final eGFR is calculated based on the CKD-EPI 2020 equation SODIUM 07/02/2023 07:21:35 140 135-146 (m mol/L) Final Potassium 07/02/2023 07:21:35 4.0 3.5-5.1 (m mol/L) Final Cl 07/02/2023 07:21:35 103 98-107 (mm ol/L) Final CO2 07/02/2023 07:21:35 25 22-32 (mmo l/L) Final Anion gap 07/02/2023 07:21:35 12 7-15 (mmol /L) Final Glucose 07/02/2023 07:21:35 82 70-120 (mg /dL) Final Albumin 07/02/2023 07:21:35 4.7 3.8-5.0 (g /dL) Final AST (Aspartate aminotransferase) 07/02/2023 07:21:35 18 10-35 (U/L) Final Alk Phos 07/02/2023 07:21:35 45 35-130 (U/ L) Final Bilirubin, Total 07/02/2023 07:21:35 0.6 <=1 .2 (mg/dL) Final Calcium 07/02/2023 07:21:35 9.3 8.4-10.2 ( mg/dL) Final Protein 07/02/2023 07:21:35 7.1 6.0-8.3 (g /dL) Final ALT (Alanine aminotransferase) 07/02/2023 07:21:35 17 10-35 (U/L) Final Performing Location [facility] [address] [place] [address]
--- OUTSIDE RECORDS SUMMARY | 2023-09-17 12:23 | External Medical Summary ---
Author Name Unknown Address Unknown Organization K01:[facility] [address] [place] [address] Laboratory Report Ordering Provider Test Date Status VALENTE GALVAN 07/02/2023 07:21:35 Final Observation Date Value Abnormality Reference (Units) Status Hepatitis B virus surface Ab [Units/volume] in Serum or Plasma by Immunoassay 07/02/2023 07:21:35 <3.5 (mIU/mL) Final Hepatitis B virus surface Ab [Presence] in Serum by Immunoassay 07/02/2023 07:21:35 Negative Final HEPATITIS B SURFACE ANTIBODY, INTERPRETATION 07/02/2023 07:21:35 NOT immune to Hepatitis B Virus Final POSITIVE: >=11.5 mIU/mL
INDETERMINATE: 8.5-<11.5 mIU/mL
NEGATIVE: <8.5 mIU/mL Performing Location [facility] [place] [address]
== END 2023-09-13 12:49 | disposition home or self-care (01) | DRG 660 ==
LOC: ED 04:57 → OR 10:25 → 3W 10:26 → SUATTDRO 10:26 → 3W 10:31